=== PATIENT | male | born 1965 | race Caucasian/White ===

== ENCOUNTER → 2017-09-06 | Outpatient (CLI) | payer BC ==
--- NOTE | 2017-09-06 16:24 | RADIOLOGY REPORT (SQ) ---
EXAM DESCRIPTION: CT FACIAL AREA COMBO COMPLETED DATE/TIME: 09/06/2017 3:23 pm REASON FOR STUDY: ACUTE ALLERGIC RHINITIS/MASS OF SINUS R22.0 LOCALIZED SWELLING, MASS AND LUMP, HE AD COMPARISON: None. TECHNIQUE: THE PATIENT REFUSED IV CONTRAST. Noncontrast scanning through the paranasal sinuses using bone algorithm. Reconstructed MPR images r eviewed. All images stored on PACS. Images acquired for image guided surgery. All CT scanners at this facility use dose modulation, iterative reconstruction, and/or weight based d osing when appropriate to reduce radiation dose to as low as reasonably achievable (ALARA). [facility]: Dose Right [facility]: CareDose [facility]: Dose Right [facility]: Teradose 4D [facility]: [employer] RADIATION DOSE: 41.6 mGy. FINDINGS: NASAL PASSAGES: Clear. No polyps or masses. OSTEOMEATAL UNITS AND NASOFRONTAL DUCTS: Patent. Tiny bilateral agger nasi cells. No Vonnie cells. MAXILLARY SINUSES: Well-pneumatized and clear. Maxillary sinus outlets are patent. ETHMOID SINUSES: Well-pneumatized and clear. SPHENOID SINUSES: Well-pneumatized and clear. No sphenoethmoid air cells or pneumatized pterygoid rec ess. No pneumatized dorsal sella. FRONTAL SINUSES: Well-pneumatized and clear. MASTOID AIR CELLS: Clear. ORBITS: Normal and symmetrical. NASAL SEPTUM: Lower 3rd rightward nasal septal deviation. Mid 3rd leftward nasal septal spur. TEMPOROMANDIBULAR JOINTS: Normal. TURBINATES: No pneumatized turbinates. MUCOPERIOSTEAL THICKENING: No. MUCOCELE: No. OTHER: No other significant findings. IMPRESSION: NO EVIDENCE OF ACUTE SINUSITIS. TECHNICAL DOCUMENTATION: JOB ID: [id number] Quality ID # [id number]: Final reports with documentation of one or more dose reduction techniques (e.g., Au tomated exposure control, adjustment of the mA and/or kV according to patient size, use of iterative reconstruction technique) 2010 [employer]- All Rights Reserved
== END ==
LOC: RAD 14:34
PROVIDERS: ATTEND Otolaryngology
DX: R22.0 Localized swelling, mass and lump, head (principal)
CPT/HCPCS: 70488

== ENCOUNTER → 2018-04-12 | Outpatient (CLI) | payer BC ==
[2018-04-12 08:20] LABS: ABSOLUTE EOSINOPHILS # (AUTO) 0.1 10^3/uL (0.0-0.6); ABSOLUTE LYMPHOCYTES (AUTO) 2.5 10^3/uL (0.5-4.7); ABSOLUTE MONOCYTES (AUTO) 0.6 10^3/uL (0.1-1.4); ABSOLUTE NEUT (AUTO) 3.8 10^3/uL (1.7-8.2); BASOPHILS % (AUTO) 0.6 % (0-2); EOSINOPHILS % (AUTO) 1.2 % (0-6); HEMATOCRIT 45.8 % (37.9-51.0); HEMOGLOBIN 15.6 g/dL (13.5-17.0); LYMPHOCYTES % (AUTO) 35.6 % (13-45); MEAN CORPUSCULAR HEMOGLOBIN 31.9 pg (27.0-33.4); MEAN CORPUSCULAR VOLUME 94 fl (80-97); MONOCYTES % (AUTO) 8.1 % (3-13); PLATELET COUNT 334 10^3/uL (150-450); RED BLOOD COUNT 4.88 10^6/uL (4.35-5.55); SEGMENTED NEUTROPHILS % (AUTO) 54.5 % (42-78); TOTAL CELLS COUNTED % (AUTO) 100 %
[2018-04-12 08:43] LABS: ALANINE AMINOTRANSFERASE 20 U/L (21-72); ALBUMIN 4.9 g/dL (3.5-5.0); ALKALINE PHOSPHATASE 70 U/L (38-126); ANION GAP 9 (5-19); ASPARTATE AMINO TRANSFERASE 24 U/L (17-59); BILIRUBIN,DIRECT 0.3 mg/dL (0.0-0.4); BILIRUBIN,TOTAL 0.4 mg/dL (0.2-1.3); BLOOD UREA NITROGEN 16 mg/dL (7-20); CALCIUM 10.3 mg/dL (8.4-10.2); CARBON DIOXIDE 33 mmol/L (22-30); CHLORIDE 100 mmol/L (98-107); CHOLESTEROL 196.65 mg/dL (0-200); GLUCOSE 111 mg/dL (75-110); POTASSIUM 4.8 mmol/L (3.6-5.0); SODIUM 142.3 mmol/L (137-145); TOTAL PROTEIN 7.4 g/dL (6.3-8.2); TRIGLYCERIDES 53 mg/dL (<150)
[2018-04-12 08:58] LABS: DIRECT LDL 93 mg/dL (<100)
[2018-04-16 07:05] LABS: LYME DISEASE IGM AB <0.80 index (0.00-0.79)
== END ==
LOC: LAB 07:47
PROVIDERS: ATTEND Internal Medicine
DX: Z00.00 Encounter for general adult medical examination without abnormal findings (principal); E55.9 Vitamin D deficiency, unspecified
CPT/HCPCS: 36415; 80053; 80061; 82306; 84153; 84443; 85025; 86617; 86618

== ENCOUNTER → 2018-04-20 | Outpatient (CLI) | payer BC ==
--- NOTE | 2018-04-21 01:47 | RADIOLOGY REPORT (SQ) ---
EXAM DESCRIPTION: 2 views of the chest CLINICAL HISTORY: CHRONIC OBSTRUCTIVE PULMONARY DISEASE COMPARISON: 08/24/2014 FINDINGS: Frontal and lateral views of the chest. The cardiomediastinal silhouette has normal size and contour. No consolidation, pneumothorax, or pleural effusion. No displaced rib fractures identified. Hyperinflation. Upper abdominal soft tissues are unremarkable. IMPRESSION: 1. No acute pulmonary process identified. Findings suggest obstructive lung disease.
== END ==
LOC: RAD 18:55
PROVIDERS: ATTEND Internal Medicine
DX: J44.9 Chronic obstructive pulmonary disease, unspecified (principal); R05 Cough
CPT/HCPCS: 71046

== ENCOUNTER 2019-09-15 08:07 | Emergency (ER) | payer BC, OTHER ==
[2019-09-15 08:14] VITALS: BP 101/78
--- NOTE | 2019-09-15 08:24 | ER Document Report ---
HPI - HPI Time Seen by Provider: 09/15/19 08:18 Notes: Patient is a 54-year-old male with a history of chronic right knee pain with no other significant past medical history aside from tobacco abuse who presents complaining of acute on chronic right knee pain status post injury yesterday. Patient states that he was wrestling with his son when he may have twisted his knee causing pain. Patient states that the pain is primarily on the lateral side. His knee has been giving out on him which is not uncommon for him. He does have crutches that he has been using. He has not noticed any swelling or bruising. The pain does not radiate. Patient was told that he has meniscal tear as well as partial ACL tear in that knee, but has not been seen by orthopedics in over a year. Denies any headache, fever, head injury, neck pain, changes in vision/speech/mentation/hearing, URI, sore throat, chest pain, palpitations, syncope, cough, shortness of breath, wheeze, dyspnea, abdominal pain, nausea/vomiting/diarrhea, urinary retention, dysuria, hematuria, loss of control of bowel or bladder, numbness/tingling, saddle anesthesia, muscle paralysis/weakness, or rash. - ROS Systems Reviewed and Negative: Yes All other systems reviewed and negative Past Medical History - Social History Smoking Status: Current Every Day Smoker Family History: Reviewed & Not Pertinent - Past Medical History Cardiac Medical History: Denies: Hx Coronary Artery Disease, Hx Heart Attack, Hx Hypertension Pulmonary Medical History: Denies: Hx Asthma, Hx Bronchitis, Hx COPD, Hx Pneumonia Neurological Medical History: Denies: Hx Cerebrovascular Accident, Hx Seizures Musculoskeletal Medical History: Reports Hx Arthritis Past Surgical History: Denies: Hx Pacemaker - Immunizations Hx Diphtheria, Pertussis, Tetanus Vaccination: Yes Vertical Provider Document - CONSTITUTIONAL Agree With Documented VS: Yes Notes: PHYSICAL EXAMINATION: GENERAL: Well-appearing, well-nourished and in no acute distress. LUNGS: Breath sounds clear to auscultation bilaterally and equal. No wheezes rales or rhonchi. HEART: Regular rate and rhythm without murmurs, rubs, gallops. Musculoskeletal: Rt knee: No obvious swelling, ecchymosis, effusion, or deformity. FROM to passive/active. Strength 5+/5. N/V intact distal. + lateral joint line tenderness. Patellar grind negative. No calf tenderness. Difficult to adequately assess ligaments/meniscus with pt resistance. Extremities: No cyanosis, clubbing, or edema b/l. Peripheral pulses 2+. Capillary refill less than 3 seconds. Higinio neg b/l. NEUROLOGICAL: Normal speech, limping gait. Normal sensory, motor exams PSYCH: Normal mood, normal affect. SKIN: Warm, Dry, normal turgor, no rashes or lesions noted. - INFECTION CONTROL TRAVEL OUTSIDE OF THE [place] IN LAST 30 DAYS: No Course - Re-evaluation Re-evalutation: 09/15/19 Patient is an afebrile, well-hydrated, 54-year-old male who presents to the ED with acute on chronic right knee pain, probable internal involvement. Vitals are acceptable without any significant tachycardia, tachypnea, or hypoxia. PE is otherwise unremarkable for any neurovascular compromise, obvious tendon/ligament rupture, obvious fracture/dislocation, septic joint. X-ray was unremarkable for any acute pathology aside from joint effusion, most likely from acute injury-no evidence of infection. Ankle stirrup and crutches were provided today. Patient declined any Tylenol or ice. Patient is nontoxic-appearing. Patient is able to ambulate and weight-bear although he is limping. No other labs or imaging warranted at this time based on H&P. Conservative measures otherwise for symptoms. Recheck with your PCM in 3-5 days. Consider consult orthopedics. Return to the ED with any worsening/concerning symptoms otherwise as reviewed in discharge. Patient is in agreement. - Vital Signs Vital signs: Temp Pulse Resp BP Pulse Ox 97.6 F 68 18 101/78 97 09/15/19 08:13 09/15/19 08:13 09/15/19 08:13 09/15/19 08:13 09/15/19 08:13 Discharge - Discharge Clinical Impression: Right knee pain Qualifiers: Chronicity: acute Qualified Code(s): M25.561 - Pain in right knee Condition: Stable Disposition: HOME, SELF-CARE Additional Instructions: Rest, Ice, Compression, Elevation Tylenol/ibuprofen as needed Light stretches daily Strength exercises as able Moist heat and massage may help F/u with your PCP in 3-5 days for a recheck Consider consult(s) with Orthopedics/physical therapy for ongoing/worsening symptoms Return to the ED with any worsening symptoms and/or development of fever, headache, chest pain, palpitations, syncope, shortness of breath, trouble breathing, abdominal pain, n/v/d, muscle weakness/paralysis, numbness/tingling, swelling, redness, or other worsening symptoms that are concerning to you. Prescriptions: Meloxicam [Mobic 7.5 Mg Tablet] 7.5 mg PO BID PRN #20 tablet PRN Reason: Forms: Smoking Cessation Education Referrals: WANG BARROSO MD [ACTIVE STAFF] - Follow up as needed [facility] [Provider Group] - Follow up as needed
--- NOTE | 2019-09-15 09:28 | RADIOLOGY REPORT (SQ) ---
EXAM DESCRIPTION: KNEE RIGHT 4 VIEWS COMPLETED DATE/TIME: 09/15/2019 9:04 am REASON FOR STUDY: Rt knee pain, acute on chronic COMPARISON: 05/09/2013 NUMBER OF VIEWS: Four views. TECHNIQUE: AP, lateral, and both oblique radiographic images acquired of the right knee. LIMITATIONS: None. FINDINGS: MINERALIZATION: Normal. BONES: No acute fracture or dislocation. No worrisome bone lesions. JOINT: Large nonspecific knee joint effusion. Mild tricompartmental joint space narrowing and osteop hytosis SOFT TISSUES: No soft tissue swelling. No radio-opaque foreign body. OTHER: No other significant finding. IMPRESSION: No fracture or dislocation of the right knee. There is a large nonspecific knee joint e ffusion. Mild tricompartmental joint space narrowing and osteophytosis. TECHNICAL DOCUMENTATION: JOB ID: [id number] [email or web address]- All Rights Reserved Reading location - IP/workstation name: [email or web address]
== END 2019-09-15 09:30 | disposition home or self-care (01) ==
LOC: ER 08:07
DX: M25.561 Pain in right knee (principal); G89.29 Other chronic pain; X50.1XXA Overexertion from prolonged static or awkward postures, initial encounter; Y93.72 Activity, wrestling; F17.200 Nicotine dependence, unspecified, uncomplicated
CPT/HCPCS: 99283

== ENCOUNTER → 2020-02-19 | Outpatient (CLI) | payer BC ==
--- NOTE | 2020-02-19 12:02 | RADIOLOGY REPORT (SQ) ---
EXAM DESCRIPTION: L SPINE WHOLE COMPLETED DATE/TIME: 02/19/2020 11:47 am REASON FOR STUDY: BACK PAIN M51.36 OTHER INTERVERTEBRAL DISC DEGENERATION, LUMBAR REGION M54.6 JANETT N IN THORACIC SPINE R05 COUGH COMPARISON: Lumbar spine films 08/13/2016 Thoracic spine films same date NUMBER OF VIEWS: Five views including obliques. TECHNIQUE: AP, lateral, oblique, and sacral radiographic images acquired of the lumbar spine. LIMITATIONS: None. FINDINGS: MINERALIZATION: Normal. SEGMENTATION: Normal. No transitional anatomy. ALIGNMENT: Normal. VERTEBRAE: Maintained height. No fracture or worrisome bone lesion. DISCS: Mild disc space loss of height at L4-5 and L5-S1 POSTERIOR ELEMENTS: Mild bilateral facet arthropathy at L4-5 and L5-S1. No spondylolysis HARDWARE: None in the spine. PARASPINAL SOFT TISSUES: Normal. PELVIS: Mild sclerosis right SI joint OTHER: No other significant finding. IMPRESSION: Mild lower lumbar degenerative changes TECHNICAL DOCUMENTATION: JOB ID: [id number] 2010 [employer]- All Rights Reserved Reading location - IP/workstation name: [email or web address]
--- NOTE | 2020-02-19 12:02 | RADIOLOGY REPORT (SQ) ---
EXAM DESCRIPTION: T SPINE AP/LAT COMPLETED DATE/TIME: 02/19/2020 11:47 am REASON FOR STUDY: THORACIC BACK PAIN M51.36 OTHER INTERVERTEBRAL DISC DEGENERATION, LUMBAR REGION M 54.6 PAIN IN THORACIC SPINE R05 COUGH COMPARISON: Thoracic spine films 05/13/2012, 04/16/2014, 08/13/2016 NUMBER OF VIEWS: Two views. TECHNIQUE: AP and lateral radiographic images acquired of the thoracic spine. LIMITATIONS: None. FINDINGS: MINERALIZATION: Normal. ALIGNMENT: Minimal convex rightward thoracic curvature less than 10 from the top of T2 to the bottom of T8. VERTEBRAE: No fracture or bone lesion. Maintained height, normal segmentation. DISCS: No significant loss of height or significant narrowing. No large osteophytes. HARDWARE: None in the spine. MEDIASTINUM AND SOFT TISSUES: Normal heart size and aortic contour. No soft tissue abnormality. VISUALIZED LUNG JOE: Clear. OTHER: No other significant finding. IMPRESSION: NO SIGNIFICANT RADIOGRAPHIC FINDING IN THE THORACIC SPINE. TECHNICAL DOCUMENTATION: JOB ID: [id number] 2010 [employer]- All Rights Reserved Reading location - IP/workstation name: [email or web address]
--- NOTE | 2020-02-19 12:02 | RADIOLOGY REPORT (SQ) ---
EXAM DESCRIPTION: CHEST 2 VIEWS COMPLETED DATE/TIME: 02/19/2020 11:47 am REASON FOR STUDY: COUGH/BRONCHITIS COMPARISON: Chest films 2013, 2017 EXAM PARAMETERS: NUMBER OF VIEWS: two views TECHNIQUE: Digital Frontal and Lateral radiographic views of the chest acquired. RADIATION DOSE: NA LIMITATIONS: none FINDINGS: LUNGS AND PLEURA: No opacities, masses or pneumothorax. No pleural effusion. MEDIASTINUM AND HILAR STRUCTURES: No masses or contour abnormalities. HEART AND VASCULAR STRUCTURES: Heart normal size. No evidence for failure. BONES: No acute findings. HARDWARE: None in the chest. OTHER: No other significant finding. IMPRESSION: NO ACUTE RADIOGRAPHIC FINDING IN THE CHEST. TECHNICAL DOCUMENTATION: JOB ID: [id number] 2010 [employer]- All Rights Reserved Reading location - IP/workstation name: [email or web address]
--- NOTE | 2020-02-19 12:03 | RADIOLOGY REPORT (SQ) ---
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 FINDINGS: MINERALIZATION: Normal. HIPS: No acute fracture or dislocation. No worrisome bone lesions. PELVIS AND SACRUM: No acute fracture or dislocation. No worrisome bone lesions. PUBIS AND ISCHIUM: No acute fracture. Mild right SI joint sclerosis SOFT TISSUES: No findings. OTHER: No other significant finding. IMPRESSION: Mild right SI joint sclerosis. Otherwise unremarkable study COMMENT: Pelvic fractures are often occult on plain radiographs. If strong clinical suspicion for f racture, recommend CT or MR. TECHNICAL DOCUMENTATION: JOB ID: [id number] 2010 [employer]- All Rights Reserved Reading location - IP/workstation name: [email or web address]
== END ==
LOC: RAD 11:04
PROVIDERS: ATTEND Physician Assistant
DX: M51.36 Other intervertebral disc degeneration, lumbar region (principal); M43.8X4 Other specified deforming dorsopathies, thoracic region; J40 Bronchitis, not specified as acute or chronic; R05 Cough
CPT/HCPCS: 71046; 72070; 72110; 72170

== ENCOUNTER 2020-07-21 00:23 | Emergency (ER) | payer BC ==
[2020-07-21 00:33] VITALS: BP 118/83
[2020-07-21] MEDS ORDERED: OXYCODONE-ACETAMINOPHEN 5-325 MG TABLET PO ONE (00:53)
--- NOTE | 2020-07-21 00:56 | ER Document Report ---
ED Medical Screen (RME) - General Chief Complaint: Skin Sore(s) Stated Complaint: BUG BITES IN LEGS Time Seen by Provider: 07/21/20 00:27 Primary Care Provider: CHHAYA MCCRARY PA-C [Primary Care Provider] - Follow up as needed Information source: Patient Notes: Patient presents complaining of skin lesions to the bilateral lower extremities that started to develop 4 hours ago. Patient states that his legs have also started to have areas in which he has areas of swelling to the left lateral knee, anterior gomez bilaterally and posterior right ankle. Patient has worsening skin lesions that are not pruritic. Patient complains of increasing leg pain and has difficulty ambulating at this time. I have greeted and performed a rapid initial assessment of this patient. A comprehensive ED assessment and evaluation of the patient, analysis of test results and completion of the medical decision making process will be conducted by additional ED providers. TRAVEL OUTSIDE OF THE [place] IN LAST 30 DAYS: No - Related Data Allergies/Adverse Reactions: cyclobenzaprine HCl [From Flexeril] Allergy (Severe, Verified 07/21/20 00:45) Hives Home Medications: PAIN MEDS (CHRONIC) Past Medical History - Social History Frequency of alcohol use: None Drug Abuse: None - Past Medical History Cardiac Medical History: Denies: Hx Coronary Artery Disease, Hx Heart Attack, Hx Hypertension Pulmonary Medical History: Denies: Hx Asthma, Hx Bronchitis, Hx COPD, Hx Pneumonia Neurological Medical History: Denies: Hx Cerebrovascular Accident, Hx Seizures Musculoskeltal Medical History: Reports Hx Arthritis Past Surgical History: Denies: Hx Pacemaker - Immunizations Hx Diphtheria, Pertussis, Tetanus Vaccination: Yes Physical Exam - Vital signs Vitals: Temp Pulse Resp BP Pulse Ox 99.5 F 78 20 118/83 95 07/21/20 00:30 07/21/20 00:30 07/21/20 00:30 07/21/20 00:30 07/21/20 00:30 - General General appearance: Alert In distress: Mild Notes: Patient with petechial skin rash to bilateral lower extremities, some areas of the lesions overlying the knee are raised with some scabbed areas. Patient with swollen area to the anterior aspect of bilateral gomez and to the lateral aspect of the left knee and posterior aspect of right ankle. Course - Re-evaluation Re-evalutation: 07/21/20 00:[address] Mitchell regarding patient presentation, advises ordering coags and basic laboratory studies - Vital Signs Vital signs: Temp Pulse Resp BP Pulse Ox 99.5 F 78 20 118/83 95 07/21/20 00:30 07/21/20 00:30 07/21/20 00:30 07/21/20 00:30 07/21/20 00:30 Doctor's Discharge - Discharge Referrals: CHHAYA MCCRARY, FRANCISCA [Primary Care Provider] - Follow up as needed
== END 2020-07-21 06:18 | disposition left against medical advice (07) ==
LOC: ER 00:23
DX: L98.9 Disorder of the skin and subcutaneous tissue, unspecified (principal); W57.XXXA Bitten or stung by nonvenomous insect and other nonvenomous arthropods, initial encounter; Z88.8 Allergy status to other drugs, medicaments and biological substances
CPT/HCPCS: 99283

== ENCOUNTER 2020-07-21 11:41 | Emergency (ER) | payer BC ==
[2020-07-21] MEDS ORDERED: CLINDAMYCIN 600 MG/D5W RTU 600 MG/50 ML RTUPB IV ONE (13:13)
--- NOTE | 2020-07-21 13:16 | ER Document Report ---
ED Medical Screen (RME) - General Chief Complaint: Leg Swelling Stated Complaint: LEG SWELLING Time Seen by Provider: 07/21/20 13:05 Primary Care Provider: WANG BARROSO MD [Primary Care Provider] - Follow up as needed Mode of Arrival: Wheelchair Information source: Patient Notes: HPI; 55-year-old male with a history of chronic back pain presents to the emerge ncy room complaining of bilateral leg pain for the rash that started last evening after [place]. States he was here last night but left prior to being seen due to the weight. States today he got up and he can barely walk secondary to the pain. Has been taking his Percocet for his chronic back pain without relief. He denies any acute injury. Denies any recent insect bites that he is aware of. Denies fevers. PE: Alert and oriented x3. Moderate distress noted. Lungs: Clear to auscultation without rales, rhonchi, wheezes. Heart: Regular rate and rhythm without murmurs, rubs, gallops. Bilateral lower extremities with scattered lesions questionable insect bites. They are tender to palpation. They are warm to touch. No discharge or draining noted. Patient with severe right calf pain on palpation. No swelling noted. Positive bilateral pedal pulses. I have greeted and performed a rapid initial assessment of this patient. A comprehensive ED assessment and evaluation of the patient, analysis of test results and completion of the medical decision making process will be conducted by additional ED providers. I have specifically instructed the patient or family members with the patient to immediately return to any nursing staff should anything change in the patient's condition or with their chief complaint. TRAVEL OUTSIDE OF THE [place] IN LAST 30 DAYS: No - Related Data Allergies/Adverse Reactions: cyclobenzaprine HCl [From Flexeril] Allergy (Severe, Verified 07/21/20 00:45) Hives Past Medical History - Past Medical History Cardiac Medical History: Denies: Hx Coronary Artery Disease, Hx Heart Attack, Hx Hypertension Pulmonary Medical History: Denies: Hx Asthma, Hx Bronchitis, Hx COPD, Hx Pneumonia Neurological Medical History: Denies: Hx Cerebrovascular Accident, Hx Seizures Musculoskeltal Medical History: Reports Hx Arthritis Past Surgical History: Denies: Hx Pacemaker - Immunizations Hx Diphtheria, Pertussis, Tetanus Vaccination: Yes Physical Exam - Vital signs Vitals: Temp Pulse Resp BP Pulse Ox 98.7 F 72 18 120/73 97 07/21/20 11:45 07/21/20 11:45 07/21/20 11:45 07/21/20 11:45 07/21/20 11:45 Course - Vital Signs Vital signs: Temp Pulse Resp BP Pulse Ox 98.7 F 72 18 120/73 97 07/21/20 11:45 07/21/20 11:45 07/21/20 11:45 07/21/20 11:45 07/21/20 11:45 Doctor's Discharge - Discharge Referrals: WANG BARROSO MD [Primary Care Provider] - Follow up as needed
[2020-07-21 13:49] LABS: ABSOLUTE BASOPHILS # (AUTO) 0.1 10^3/uL (0.0-0.2); ABSOLUTE MONOCYTES (AUTO) 1.4 10^3/uL (0.1-1.4); ABSOLUTE NEUT (AUTO) 10.4 10^3/uL (1.7-8.2); BASOPHILS % (AUTO) 0.4 % (0-2); EOSINOPHILS % (AUTO) 0.3 % (0-6); HEMATOCRIT 37.3 % (37.9-51.0); HEMOGLOBIN 12.9 g/dL (13.5-17.0); LYMPHOCYTES % (AUTO) 14.2 % (13-45); MEAN CORPUSCULAR HEMOGLOBIN 31.6 pg (27.0-33.4); MEAN CORPUSCULAR HGB CONC 34.7 g/dL (32.0-36.0); MEAN CORPUSCULAR VOLUME 91 fl (80-97); MONOCYTES % (AUTO) 10.1 % (3-13); PLATELET COUNT 522 10^3/uL (150-450); RED BLOOD COUNT 4.09 10^6/uL (4.35-5.55); RED CELL DISTRIBUTION WIDTH 12.6 % (11.5-14.0); TOTAL CELLS COUNTED % (AUTO) 100 %; WHITE BLOOD COUNT 13.8 10^3/uL (4.0-10.5)
[2020-07-21 14:10] LABS: ALBUMIN 4.1 g/dL (3.5-5.0); ALKALINE PHOSPHATASE 268 U/L (38-126); ANION GAP 11 (5-19); ASPARTATE AMINO TRANSFERASE 33 U/L (17-59); BILIRUBIN,DIRECT 0.1 mg/dL (0.0-0.4); BILIRUBIN,TOTAL 0.9 mg/dL (0.2-1.3); BLOOD UREA NITROGEN 12 mg/dL (7-20); CALCIUM 9.5 mg/dL (8.4-10.2); CARBON DIOXIDE 29 mmol/L (22-30); CHLORIDE 100 mmol/L (98-107); GLUCOSE 102 mg/dL (75-110); POTASSIUM 4.4 mmol/L (3.6-5.0); TOTAL PROTEIN 7.6 g/dL (6.3-8.2)
--- NOTE | 2020-07-21 16:11 | RADIOLOGY REPORT (SQ) ---
EXAM DESCRIPTION: CHEST SINGLE VIEW IMAGES COMPLETED DATE/TIME: 07/21/2020 3:59 pm REASON FOR STUDY: sob COMPARISON: 02/19/2020 EXAM PARAMETERS: NUMBER OF VIEWS: One view. TECHNIQUE: Single frontal radiographic view of the chest acquired. RADIATION DOSE: NA LIMITATIONS: None. FINDINGS: LUNGS AND PLEURA: No opacities, masses or pneumothorax. No pleural effusion. MEDIASTINUM AND HILAR STRUCTURES: No masses. Contour normal. HEART AND VASCULAR STRUCTURES: Heart normal in size. Normal vasculature. BONES: No acute findings. HARDWARE: None in the chest. OTHER: No other significant finding. IMPRESSION: NO ACUTE RADIOGRAPHIC FINDING IN THE CHEST. TECHNICAL DOCUMENTATION: JOB ID: [id number] 2010 [employer]- All Rights Reserved Reading location - IP/workstation name: [email or web address]
[2020-07-21 16:20] LABS: PROTHROMBIN TIME 14.4 SEC (11.4-15.4)
[2020-07-21 16:21] LABS: PARTIAL THROMBOPLASTIN TIME 35.6 SEC (23.5-35.8)
[2020-07-21] MEDS ORDERED: MORPHINE SULFATE 10 MG/ML INJ IV ONE (17:00)
[2020-07-21] MEDS ORDERED: DIAZEPAM 2 MG TABLET PO ONE (17:09)
--- NOTE | 2020-07-21 19:15 | RADIOLOGY REPORT (SQ) ---
EXAM DESCRIPTION: VENOUS BILATERAL LOWER IMAGES COMPLETED DATE/TIME: 07/21/2020 5:13 pm REASON FOR STUDY: Bilateral leg swelling COMPARISON: None. TECHNIQUE: Dynamic and static ventura scale and color images acquired of both lower extremity venous sy stems. Selected spectral images acquired with additional compression and augmentation maneuvers. Imag es stored on PACS. LIMITATIONS: None. FINDINGS: RIGHT LEG There is nonocclusive thrombus in the right popliteal vein. No extension proximally. The right comm on femoral, greater saphenous, superficial femoral, and femoral are patent with normal compressibilit y. The right posterior tibial, greater saphenous and superficial saphenous veins below the knee are patent with normal compressibility. LEFT LEG There is extensive acute hypoechoic thrombus involving the left popliteal vein, gastric vein, and per lambert vein below the knee. The left common femoral vein, greater saphenous vein, femoral vein, and s uperficial femoral vein are patent. IMPRESSION: 1. Acute occlusive thrombus in the left popliteal vein, gastroc vein and peroneal vein below the knee . 2. Focal acute nonocclusive thrombus in the right popliteal vein. COMMENT: Findings were called by the sonographic technologist to the attending DrTaylor at 1805 hours. TECHNICAL DOCUMENTATION: JOB ID: [id number] 2010 [employer]- All Rights Reserved Reading location - IP/workstation name: [email or web address]
[2020-07-21] MEDS ORDERED: APIXABAN 5 MG TABLET PO ONE (19:54)
--- NOTE | 2020-07-21 20:00 | ER Document Report ---
ED General - General Chief Complaint: Leg Swelling Stated Complaint: LEG SWELLING Time Seen by Provider: 07/21/20 13:05 Primary Care Provider: WANG BARROSO MD [Primary Care Provider] - Follow up as needed Mode of Arrival: Wheelchair Information source: Patient, Relative Notes: Patient is a 55-year-old male presenting to the emergency department chief complaint of bilateral lower extremity swelling pain and rash. Patient states this began yesterday however on further discussion the pain actually started several days ago yesterday he noticed the swelling and this morning he noticed the rash. The rash began around his feet and ankles and has progressed towards his thighs. Patient denies travel history trauma history sick contacts no change in medications. TRAVEL OUTSIDE OF THE [place] IN LAST 30 DAYS: No - HPI Onset: Yesterday Onset/Duration: Gradual, Worse Quality of pain: Throbbing Severity: Moderate Pain Level: 3 Associated symptoms: None Exacerbated by: Standing, Movement, Walking Relieved by: Denies Similar symptoms previously: No Recently seen / treated by doctor: No - Related Data Allergies/Adverse Reactions: cyclobenzaprine HCl [From Flexeril] Allergy (Severe, Verified 07/21/20 00:45) Hives Past Medical History - General Information source: Patient - Social History Smoking Status: Current Every Day Smoker Cigarette use (# per day): Yes Chew tobacco use (# tins/day): No Smoking Education Provided: Yes Frequency of alcohol use: Occasional Drug Abuse: None Lives with: Spouse/Significant other Family History: Reviewed & Not Pertinent Patient has suicidal ideation: No Patient has homicidal ideation: No - Past Medical History Cardiac Medical History: Denies: Hx Coronary Artery Disease, Hx Heart Attack, Hx Hypertension Pulmonary Medical History: Denies: Hx Asthma, Hx Bronchitis, Hx COPD, Hx Pneumonia Neurological Medical History: Denies: Hx Cerebrovascular Accident, Hx Seizures Musculoskeletal Medical History: Reports Hx Arthritis Past Surgical History: Denies: Hx Pacemaker - Immunizations Hx Diphtheria, Pertussis, Tetanus Vaccination: Yes Review of Systems - Review of Systems Constitutional: No symptoms reported EENT: No symptoms reported Cardiovascular: No symptoms reported Respiratory: No symptoms reported Gastrointestinal: No symptoms reported Genitourinary: No symptoms reported Male Genitourinary: No symptoms reported Musculoskeletal: See HPI Skin: See HPI Hematologic/Lymphatic: No symptoms reported Neurological/Psychological: No symptoms reported Physical Exam - Vital signs Vitals: Temp 98.7 F 07/21/20 11:41 - Notes Notes: PHYSICAL EXAMINATION: GENERAL: Well-appearing, well-nourished and in no acute distress. HEAD: Atraumatic, normocephalic. EYES: Pupils equal round and reactive to light, extraocular movements intact, sclera anicteric, conjunctiva are normal. ENT: nares patent, oropharynx clear without exudates. Moist mucous membranes. NECK: Normal range of motion, supple without lymphadenopathy, no appreciable JVD LUNGS: Lungs clear to auscultation bilaterally and equal. No wheezes rales or rhonchi. HEART: Regular rate and rhythm without murmurs ABDOMEN: Soft, nontender, normal bowel sounds. No guarding, no rebound. No masses appreciated. EXTREMITIES: Upper extremities full range of motion 2+ pulses bilaterally. Lower extremities patient does have petechiae to the ankles and calves and lower thigh. There is swelling bilaterally and painful calves bilaterally to palpation pulses are present at the dorsalis pedis NEUROLOGICAL: No focal neurological deficits. Moves all extremities spontaneously and on command. SKIN: Warm, Dry, and intact. Normal turgor, no rashes or lesions noted. Course - Re-evaluation Re-evalutation: 07/21/20 19:57 I discussed the laboratory and radiologic results with the patient he unde rstands that he has an occlusive left-sided popliteal gastroc and peroneal vein as well as a nonocclusive right-sided popliteal vein. Patient will be given initial dose of Eliquis in the emergency department and a prescription for same as well as a prescription for a few Valium to help with muscle cramps. Patient is recommended to follow-up with his primary care provider over the next couple of days for further management. Patient is stable at time of discharge. - Vital Signs Vital signs: Temp Pulse Resp BP Pulse Ox 98.7 F 72 19 111/65 92 07/21/20 11:45 07/21/20 11:45 07/21/20 18:57 07/21/20 18:57 07/21/20 18:57 - Laboratory Result Diagrams: 07/21/20 13:25 07/21/20 13:25 Laboratory results interpreted by me: 07/21/20 07/21/20 13:25 13:25 WBC 13.8 H RBC 4.09 L Hgb 12.9 L Hct 37.3 L Plt Count 522 H Absolute Neuts (auto) 10.4 H Alkaline Phosphatase 268 H - Diagnostic Test Radiology reviewed: Reports reviewed Discharge - Discharge Clinical Impression: DVT (deep venous thrombosis) Qualifiers: DVT location: lower extremity Affected thrombotic vein of extremity: calf muscle vein Chronicity: acute Laterality: bilateral Qualified Code(s): I82.463 - Acute embolism and thrombosis of calf muscular vein, bilateral Clinical Impression: (Ruled Out): Dvt femoral (deep venous thrombosis) Condition: Stable Disposition: HOME, SELF-CARE Additional Instructions: DVT Outpatient Treatment You have deep venous thrombosis (DVT) in your leg. DVT or phlebitis is blood clots within the large deep veins. This causes redness, warmth, and tenderness of the involved area. This problem is more likely to affect people who smoke, take estrogen, have had recent surgery, have been immobile, have had previous DVT, or who have serious underlying health conditions. Keep your legs elevated. A heating pad, 20 minutes every two hours, can help with leg pain. For now, keep walking to a minimum. Don't do any physical work, lifting, or exercise. If the doctor has recommended medication for you, it's important that you take it. You will be started on a blood-thinning medication. Follow-up is important. Your medication needs to be monitored. Call or return at once if you cough blood or vomit blood, pass black or bloody stool, or have any other unusual bleeding. DVT can cause serious complications. The clots can damage the valves in the veins, leading to chronic pain and swelling. If a clot breaks loose and floats upstream, it can stick in the lungs. A clot in the lungs, called pulmonary embolism, can be life-threatening. Call the doctor or return if you develop i ncreasing leg pain and swelling, leg discoloration, fever, chest pain, or shortness of breath. Prescriptions: Diazepam [Valium 2 mg Tablet] 2 mg PO Q6HP PRN #15 tablet PRN Reason: Apixaban [Eliquis 5 mg Tablet] 5 mg PO BID #30 tablet Forms: Return to Work Referrals: WANG BARROSO MD [Primary Care Provider] - Follow up as needed
[2020-07-21 20:31] VITALS: BP 110/71
== END 2020-07-21 20:32 | disposition home or self-care (01) ==
LOC: ER 11:41
DX: I82.463 Acute embolism and thrombosis of calf muscular vein, bilateral (principal); M79.89 Other specified soft tissue disorders; R21 Rash and other nonspecific skin eruption; Z88.8 Allergy status to other drugs, medicaments and biological substances; F17.210 Nicotine dependence, cigarettes, uncomplicated
CPT/HCPCS: 99285; 96374; 36415; 87040; 83605; 85025; 85610; 85730; 80053; 86757 ×2; 86618 ×2; 86617 ×2; 93970; 71045; J3490

== ENCOUNTER 2020-07-24 09:46 | Inpatient (IN) | payer BC ==
[2020-07-24] MEDS ORDERED: HYDROMORPHONE HCL INJ/PF 2 MG/ML AMPULE IV ONE (11:06)
[2020-07-24] MEDS ORDERED: ONDANSETRON HCL INJ/PF 4 MG/2 ML SDV IV ONE (11:06)
--- NOTE | 2020-07-24 11:18 | ER Document Report ---
ED General - General Chief Complaint: Leg Pain Stated Complaint: LEG PAIN Time Seen by Provider: 07/24/20 10:39 Primary Care Provider: WANG BARROSO MD [Primary Care Provider] - Follow up as needed TRAVEL OUTSIDE OF THE [place] IN LAST 30 DAYS: No - HPI Notes: Patient is a 55-year-old male who presents to the emergency department for evaluation. He was actually seen here on July 21. He was diagnosed with bilateral DVTs, and acute occlusive thrombus in the left popliteal vein gastrocnemius vein, and peroneal vein below the knee. He had a focal acute nonocclusive thrombus in the right popliteal vein. He was sent home on Eliquis, Valium, Percocet. He states that since then his swelling is worsened. The rash on his legs is worsened. His pain is worsened. He can barely move without pain. He is swelling in his hands. He has had chills. He is developed a cou gh. He has pain in his left upper back with deep breaths. He describes some shortness of breath and weakness. - Related Data Allergies/Adverse Reactions: cyclobenzaprine HCl [From Flexeril] Allergy (Severe, Verified 07/24/20 09:54) Hives morphine Allergy (Intermediate, Verified 07/24/20 09:54) Burning rash Home Medications: eliquis 5mg BID, Pecocet 10 TIDP, Valium 2mg PRN Past Medical History - General Information source: Patient - Social History Smoking Status: Former Smoker Chew tobacco use (# tins/day): No Frequency of alcohol use: None Drug Abuse: None Family History: Malignancy - Throat cancer in brother, colon cancer in mother. No DVT/PE family history Patient has homicidal ideation: No - Past Medical History Cardiac Medical History: Reports: Hx DVT Denies: Hx Coronary Artery Disease, Hx Heart Attack, Hx Hypertension Pulmonary Medical History: Denies: Hx Asthma, Hx Bronchitis, Hx COPD, Hx Pneumonia Neurological Medical History: Denies: Hx Cerebrovascular Accident, Hx Seizures Musculoskeletal Medical History: Reports Hx Arthritis Past Surgical History: Denies: Hx Pacemaker - Immunizations Hx Diphtheria, Pertussis, Tetanus Vaccination: Yes Review of Systems - Review of Systems Constitutional: See HPI EENT: No symptoms reported Cardiovascular: No symptoms reported Respiratory: See HPI Gastrointestinal: See HPI Genitourinary: No symptoms reported Musculoskeletal: See HPI Skin: See HPI Hematologic/Lymphatic: See HPI Neurological/Psychological: No symptoms reported Physical Exam - Vital signs Vitals: Temp Pulse Resp BP Pulse Ox 98.7 F 81 20 122/71 94 07/24/20 09:51 07/24/20 09:51 07/24/20 09:51 07/24/20 09:51 07/24/20 09:51 - Notes Notes: This is a 55-year-old male who appears his stated age, in a moderate amount of distress. Head is normocephalic and appears atraumatic, pupils are equal round, reactive to light. Oral mucosa is moist. Uvula is midline. Pharynx is without erythema or exudate. Neck is supple without meningismus. Heart is regular rate and rhythm, lungs are clear to auscultation bilaterally. Patient abdomen is soft, nontender, normoactive bowel sounds. Examination of the spine yields no midline tenderness or step-off. He has paraspinal musculature tenderness noted from approximately T2-T4 bilaterally, right greater than left. Extremities without cyanosis or clubbing. Patient has pallor and edema to bilateral lower extremities, left greater than right. He has extensive petechia noted. He has an ulcerated petechial lesion noted on the dorsum of the right foot. Dorsalis pedis and posterior tibial pulses are palpable bilaterally. Capillary refill is brisk, sensation is intact. Patient also has swelling to the dorsum of the right hand, approximately 3 x 4 cm, with associated calor. No other lesions noted to the palms or digits. Patient is awake and alert, neurological exam is nonfocal. Course - Re-evaluation Re-evalutation: 07/24/20 11:20 Patient presents to the emergency department for evaluation. This is a 55-year-old male with known bilateral DVTs, who presents with worsening petechial rash, pain, chills, cough. I am concerned about the possibility of pulmonary embolus in this patient. I also do have some concern over COVID-19 infection, given that he has no significant risk factors for coagulability to our knowledge at this time. He is placed on a telemetry monitor and laboratory investigations were obtained. CT angiogram of the chest is ordered. I did communicate to nursing staff that I did have concerns for COVID-19, the patient was placed on droplet precautions. Otherwise, patient is given symptomatic medication for his pain. We will continue to monitor closely. 07/24/20 15:08 Patient was given Dilaudid, fentanyl, really had minimal relief in regards to his pain. He states he has better luck with Percocet, this is ordered. I reviewed his scan, unfortunately it was suboptimal in regards to evaluation for pulmonary embolus. I do have a high suspicion, so we will order heparin in this patient who already has known extensive DVT. There is also marked adenopathy noted. When I talked to this patient in regards to this issue, he mentioned a small lump on his left side. He states is been there for a few weeks. He saw his primary care provider, who believed it likely to be a lipoma, as the patient has a history of multiple lipomas in the past. On examination this does feel a bit firmer than a lipoma at this point, it is not matted down, but of course further imaging would be appropriate for characterizing this lesion further. I explained to the patient there were multiple possible etiologies for his symptom, but I do believe at this point, particularly given his issues, that admission is appropriate for further evaluation. I will contact medicine. 07/24/20 15:47 Dr. Rios will come to the department and evaluate the patient. 07/24/20 17:13 Dr. Rios came and evaluated the patient. He agrees with admission to telemetry. - Vital Signs Vital signs: Temp Pulse Resp BP Pulse Ox 98.7 F 81 20 102/68 96 07/24/20 09:51 07/24/20 09:51 07/24/20 17:01 07/24/20 17:01 07/24/20 17:01 - Laboratory Result Diagrams: 07/24/20 11:35 07/24/20 11:35 Laboratory results interpreted by me: 07/24/20 07/24/20 07/24/20 11:35 11:35 11:35 WBC 15.1 H RBC 3.74 L Hgb 11.6 L Hct 33.8 L Plt Count 482 H Lymph % (Auto) 7.6 L Absolute Neuts (auto) 12.5 H Seg Neutrophils % 82.6 H PT 16.2 H APTT 36.3 H Sodium 135.9 L Glucose 118 H Alkaline Phosphatase 217 H Albumin 3.4 L - Diagnostic Test Radiology reviewed: Reports reviewed Radiology results interpreted by me: 07/24/20 15:10 Chest/Abdomen CTA 07/24/20 11:06 IMPRESSION: 1. Due to poor contrast bolus, pulmonary arteries are poorly assessed. No central clot detected but embolus in the peripheral branches is not excluded. 2. Mediastinal and hilar adenopathy. This was not seen in 2014. Nonspecific. Consider the possibility of neoplasm to include lymphoma as well as sarcoid. - EKG Interpretation by Me Additional EKG results interpreted by me: 07/24/20 15:10 Sinus mechanism with rate of 71 bpm. Normal axis and intervals. T wave inversions in anterior and inferior leads concerning for ischemia. There are no old studies available for comparison. Discharge - Discharge Clinical Impression: Mediastinal lymphadenopathy, Upper back pain, Person under investigation for COVID-19, Rule out pulmonary embolus DVT (deep venous thrombosis) Qualifiers: DVT location: lower extremity Chronicity: acute Laterality: bilateral Condition: Stable Disposition: ADMITTED INPATIENT Admitting Provider: Gabriel (Hospitalist) Unit Admitted: Telemetry Referrals: WANG BARROSO MD [Primary Care Provider] - Follow up as needed
[2020-07-24] MEDS ORDERED: METHYLPREDNISOLONE INJ 125 MG/2 ML SDV IV ONE (11:53)
[2020-07-24] MEDS ORDERED: DIPHENHYDRAMINE HCL 50 MG/ML VIAL IV ONE (11:53)
[2020-07-24 12:03] LABS: ABSOLUTE BASOPHILS # (AUTO) 0.1 10^3/uL (0.0-0.2); ABSOLUTE LYMPHOCYTES (AUTO) 1.2 10^3/uL (0.5-4.7); ABSOLUTE MONOCYTES (AUTO) 1.4 10^3/uL (0.1-1.4); ABSOLUTE NEUT (AUTO) 12.5 10^3/uL (1.7-8.2); BASOPHILS % (AUTO) 0.5 % (0-2); EOSINOPHILS % (AUTO) 0.1 % (0-6); HEMATOCRIT 33.8 % (37.9-51.0); HEMOGLOBIN 11.6 g/dL (13.5-17.0); LYMPHOCYTES % (AUTO) 7.6 % (13-45); MEAN CORPUSCULAR HGB CONC 34.3 g/dL (32.0-36.0); MEAN CORPUSCULAR VOLUME 90 fl (80-97); MONOCYTES % (AUTO) 9.2 % (3-13); PLATELET COUNT 482 10^3/uL (150-450); RED BLOOD COUNT 3.74 10^6/uL (4.35-5.55); RED CELL DISTRIBUTION WIDTH 12.4 % (11.5-14.0); SEGMENTED NEUTROPHILS % (AUTO) 82.6 % (42-78); TOTAL CELLS COUNTED % (AUTO) 100 %; WHITE BLOOD COUNT 15.1 10^3/uL (4.0-10.5)
[2020-07-24 12:08] LABS: INTERNATIONAL RATION (INR) 1.28; PROTHROMBIN TIME 16.2 SEC (11.4-15.4)
[2020-07-24 12:09] LABS: PARTIAL THROMBOPLASTIN TIME 36.3 SEC (23.5-35.8)
[2020-07-24 12:28] LABS: ALBUMIN 3.4 g/dL (3.5-5.0); ALKALINE PHOSPHATASE 217 U/L (38-126); ANION GAP 11 (5-19); ASPARTATE AMINO TRANSFERASE 23 U/L (17-59); BILIRUBIN,DIRECT 0.3 mg/dL (0.0-0.4); BILIRUBIN,TOTAL 0.9 mg/dL (0.2-1.3); BLOOD UREA NITROGEN 15 mg/dL (7-20); CALCIUM 9.1 mg/dL (8.4-10.2); CARBON DIOXIDE 26 mmol/L (22-30); CHLORIDE 99 mmol/L (98-107); GLUCOSE 118 mg/dL (75-110); POTASSIUM 4.2 mmol/L (3.6-5.0); TOTAL PROTEIN 6.8 g/dL (6.3-8.2)
[2020-07-24] MEDS ORDERED: FENTANYL CITRATE INJ/PF 100 MCG/2 ML AMPUL IV ONE (13:28)
--- NOTE | 2020-07-24 14:39 | RADIOLOGY REPORT (SQ) ---
EXAM DESCRIPTION: CTA CHEST IMAGES COMPLETED DATE/TIME: 07/24/2020 2:25 pm REASON FOR STUDY: DVT, upper back pain, eval for PE COMPARISON: 2013. TECHNIQUE: CT scan of the chest performed using helical scanning technique with dynamic intravenous contrast injection. Images reviewed with lung, soft tissue and bone windows. Reconstructed coronal and sagittal MPR images reviewed. Additional 3 dimensional post-processing performed to develop Maximal Intensity Projection images ([place] P). All images stored on PACS. All CT scanners at this facility use dose modulation, iterative reconstruction, and/or weight based d osing when appropriate to reduce radiation dose to as low as reasonably achievable (ALARA). [facility]: Dose Right [facility]: CareDose [facility]: Dose Right [facility]: Teradose 4D [facility]: [employer] CONTRAST TYPE AND DOSE: contrast/concentration: Isovue 350.00 mmol/ml; Total Contrast Delivered: 52. 0 ml; Total Saline Delivered: 75.0 ml Sub optimal opacification of the pulmonary arteries. Good opacification of the aorta. RENAL FUNCTION: GFR > 60. RADIATION DOSE: CT Rad equipment meets quality standard of care and radiation dose reduction techniq ues were employed. CTDIvol: 3.3 - 14.3 mGy. DLP: 517 mGy-cm. . LIMITATIONS: Limited contrast bolus, poor assessment of the pulmonary arteries. FINDINGS: LUNGS AND PLEURA: No masses, infiltrates, or pneumothorax. No pleural effusions or pleura l calcifications. AORTA AND GREAT VESSELS: Normal. Patent great vessel origins. HEART: No pericardial effusion. No significant coronary artery calcifications. PULMONARY ARTERIES: Suboptimal opacification of the pulmonary arteries. As result, clot beyond the m ain pulmonary arteries cannot be excluded. HILAR AND MEDIASTINAL STRUCTURES: Adenopathy is noted. Numerous mediastinal and hilar nodes, largely confluent. Largest nodes measure up to just over 1 cm in short axis. HARDWARE: None in the chest. UPPER ABDOMEN: No significant findings. Limited exam. THYROID AND OTHER SOFT TISSUES: No masses. No adenopathy. BONES: No acute or significant finding. 3D MIPS: Confirm above findings. OTHER: No other significant finding. IMPRESSION: 1. Due to poor contrast bolus, pulmonary arteries are poorly assessed. No central clot detected but embolus in the peripheral branches is not excluded. 2. Mediastinal and hilar adenopathy. This was not seen in 2014. Nonspecific. Consider the possibil ity of neoplasm to include lymphoma as well as sarcoid. COMMENT: Quality ID # [id number]: Final reports with documentation of one or more dose reduction techniques (e.g., Automated exposure control, adjustment of the mA and/or kV according to patient size, use of iterative reconstruction technique) TECHNICAL DOCUMENTATION: JOB ID: [id number] 2010 [employer]- All Rights Reserved Reading location - IP/workstation name: [email or web address]
[2020-07-24] MEDS ORDERED: HEPARIN SODIUM,PORCINE/D5W 25,000 UNIT/250 ML RTUINJ IV PRN (15:07)
[2020-07-24] MEDS ORDERED: HEPARIN SOD (PORCINE) 1,000 UNIT/ML 10 ML VIAL IV ONE (15:07)
[2020-07-24] MEDS ORDERED: OXYCODONE-ACETAMINOPHEN 5-325 MG TABLET PO ONE ×2 (15:07→21:40)
[2020-07-24] MEDS ORDERED: RINGERS SOLUTION,LACTATED 1,000 ML IV ONE (17:47)
[2020-07-24] MEDS ORDERED: MAGNESIUM HYDROXIDE SUSP 30 ML UDCUP PO PRN (17:55)
[2020-07-24] MEDS ORDERED: RINGERS SOLUTION,LACTATED 1,000 ML IV PRN (17:55)
[2020-07-24] MEDS ORDERED: ACETAMINOPHEN 325 MG TABLET PO PRN (17:55)
[2020-07-24] MEDS ORDERED: ALBUTEROL SULFATE HFA (90 MCG/PUFF) 8 GM MDI IH PRN ×2 (17:55→19:30)
[2020-07-24] MEDS ORDERED: ONDANSETRON HCL INJ/PF 4 MG/2 ML SDV IV PRN (17:55)
--- NOTE | 2020-07-24 17:55 | PDOC H&P ---
History of Present Illness Admission Date/PCP: WANG BARROSO MD Patient complains of: Back pain, swelling in the feet and ankles, rash and diaphoresis History of Present Illness: TRINITY MARION JR is a 55 year old male Past Medical History Cardiac Medical History: Reports: DVT Denies: Coronary Artery Disease, Myocardial Infarction, Hypertension Pulmonary Medical History: Denies: Asthma, Bronchitis, Chronic Obstructive Pulmonary Disease (COPD), Pneumonia Neurological Medical History: Denies: Seizures Musculoskeltal Medical History: Reports: Arthritis Hematology: Denies: Anemia Past Surgical History Past Surgical History: Reports: Other - Removal of lesion on the upper lip. Denies: Pacemaker Social History Information Source: Patient, [facility] Records - From the patient and his spouse Lives with: Spouse/Significant other Smoking Status: Former Smoker - Stopped 1 week ago. Was smoking 1 to 2 packs of cigarettes daily. Electronic Cigarette use?: No Frequency of Alcohol Use: None Hx Recreational Drug Use: No Hx Prescription Drug Abuse: No - Advance Directive Resuscitation Status: Full Code Surrogate healthcare decision maker:: The patient's is the dedicated decision maker. Family History Family History: Malignancy - Throat cancer in brother, colon cancer in mother. No DVT/PE family history Parental Family History Reviewed: Yes Children Family History Reviewed: Yes Sibling(s) Family History Reviewed.: Yes Medication/Allergy Home Medications: Apixaban [Eliquis 5 mg Tablet] 5 mg PO BID #30 tablet 07/21/20 Celecoxib [Celebrex 200 mg Capsule] 200 mg PO DAILY 07/21/20 Diazepam [Valium 2 mg Tablet] 2 mg PO Q6HP PRN #15 tablet 07/21/20 Oxycodone HCl/Acetaminophen [Oxycodone-Acetaminophen 10-325] 1 each PO Q8HP PRN 07/21/20 Tizanidine HCl [Zanaflex 4 Mg Tablet] 4 mg PO TIDP PRN 07/21/20 Allergies/Adverse Reactions: cyclobenzaprine HCl [From Flexeril] Allergy (Severe, Verified 07/24/20 09:54) Hives morphine Allergy (Intermediate, Verified 07/24/20 09:54) Burning rash Review of Systems All systems: reviewed and no additional remarkable complaints except as stated Constitutional: PRESENT: other - Diaphoresis Cardiovascular: PRESENT: edema Gastrointestinal: PRESENT: abdominal pain, heartburn Musculoskeletal: PRESENT: back pain Integumentary: PRESENT: diaphoresis, other - Multiple lipomas and a tender nodule just under the skin left costal margin Physical Exam Vital Signs: Temp Pulse Resp BP Pulse Ox 98.7 F 81 20 102/68 96 07/24/20 09:51 07/24/20 09:51 07/24/20 17:01 07/24/20 17:01 07/24/20 17:01 Intake & Output 07/23/20 07/24/20 07/25/20 06:59 06:59 06:59 Weight 65.2 kg General appearance: PRESENT: cooperative, well-developed, well-nourished, other - Moderate distress Head exam: PRESENT: atraumatic, normocephalic Eye exam: PRESENT: conjunctiva pink, EOMI. ABSENT: nystagmus, scleral icterus Mouth exam: PRESENT: dry mucosa, tongue midline Teeth exam: ABSENT: poor dentation Neck exam: PRESENT: full ROM. ABSENT: carotid bruit, JVD, lymphadenopathy, tracheostomy Respiratory exam: PRESENT: clear to auscultation josh, symmetrical, unlabored. ABSENT: accessory muscle use, prolonged expiratory phas, rales, rhonchi, tachypnea, wheezes Cardiovascular exam: PRESENT: RRR, +S1, +S2, systolic murmur - 2/6. ABSENT: bradycardia, diastolic murmur, irregular rhythm, tachycardia GI/Abdominal exam: PRESENT: hypoactive bowel sounds, soft, tenderness - Nodule left side just under the last rib. Diffuse tenderness across lower abdomen., other - Scaphoid abdomen. ABSENT: distended, guarding Rectal exam: PRESENT: deferred Gentrourinary exam: ABSENT: indwelling catheter Extremities exam: PRESENT: calf tenderness, pedal edema - Ankle edema bilaterally. Patient's reports that it is worse over the last 2 days. Musculoskeletal exam: PRESENT: ambulatory, full ROM. ABSENT: deformity, di slocation Neurological exam: PRESENT: alert, awake, oriented to person, oriented to place, oriented to time, oriented to situation, CN II-XII grossly intact. ABSENT: altered, motor sensory deficit Psychiatric exam: PRESENT: flat affect. ABSENT: agitated, anxious Focused psych exam: ABSENT: delusional, paranoid, restlessness Skin exam: PRESENT: dry, petechiae - Multiple petechia on the dorsum of each foot with some on the hands. Lesions are raised. ABSENT: vesicles Results Laboratory Results: 07/24/20 11:35 07/24/20 11:35 07/24/20 07/24/20 11:35 11:35 WBC 15.1 H RBC 3.74 L Hgb 11.6 L Hct 33.8 L MCV 90 MCH 31.0 MCHC 34.3 RDW 12.4 Plt Count 482 H Seg Neutrophils % 82.6 H Sodium 135.9 L Potassium 4.2 Chloride 99 Carbon Dioxide 26 Anion Gap 11 BUN 15 Creatinine 0.85 Est GFR ( Amer) > 60 Glucose 118 H Calcium 9.1 Total Bilirubin 0.9 AST 23 Alkaline Phosphatase 217 H Total Protein 6.8 Albumin 3.4 L 07/24/20 11:35 Troponin I < 0.012 Impressions: Chest/Abdomen CTA 07/24/20 11:06 IMPRESSION: 1. Due to poor contrast bolus, pulmonary arteries are poorly assessed. No antonieta tral clot detected but embolus in the peripheral branches is not excluded. 2. Mediastinal and hilar adenopathy. This was not seen in 2013. Nonspecific. Consider the possibility of neoplasm to include lymphoma as well as sarcoid. Assessment and Plan - Diagnosis (1) DVT (deep venous thrombosis) Qualifiers: DVT location: lower extremity Affected thrombotic vein of extremity: other lower extremity vein Chronicity: acute Laterality: bilateral Qualified Code(s): I82.493 - Acute embolism and thrombosis of other specified deep vein of lower extremity, bilateral Is this a current diagnosis for this admission?: Yes Plan: The patient was diagnosed with bilateral DVTs on July 21. The left side was more extensive. The right showed nonocclusive thrombus in the popliteal vein. The left showed extensive acute hyperechoic thrombus in the popliteal, gastrocnemius and peroneal veins. He was placed on apixaban and discharged. He comes in today with his following that, as his describes, got better and is now worse. Still tenderness in his calves. At this point we will institute a continuous heparin infusion for DVTs and hold the apixaban. He will be on the DVT/PE protocol. He denied trauma or prolonged immobility. Extensive unpr ovoked DVTs are worrisome for some other underlying problem. With his adenopathy, malignancy is certainly a concern. We will check for other coagulopathies and have hematology consult. (2) Hypotension Qualifiers: Hypotension type: unspecified hypotension type Qualified Code(s): I95.9 - Hypotension, unspecified Is this a current diagnosis for this admission?: Yes Plan: During this encounter the patient's blood pressure dropped to a systolic of 85. He was immediately given a liter of saline as a bolus and then will receive lactated Ringer solution at 125 mL an hour. If his blood pressure does not improve we can increase the rate of fluid. We will monitor his intake and output. There is no obvious etiology for this drop. He is afebrile despite reporting diaphoresis at home. His white blood cell count is elevated but blood cultures from several days ago are negative. Will monitor closely. (3) Leucocytosis Qualifiers: Leukocytosis type: unspecified Qualified Code(s): D72.829 - Elevated white blood cell count, unspecified Is this a current diagnosis for this admission?: Yes Plan: It is difficult to know the etiology. There is no obvious sign of infection. Blood cultures from July 21 are no growth. Urinalysis with reflex to culture has been ordered but not collected yet. He will be placed on azithromycin for possible COVID but no other antibiotics at this time. (4) Mediastinal lymphadenopathy Is this a current diagnosis for this admission?: Yes Plan: There is a strong family history of malignancy. With his hypercoagulability and marked adenopathy malignancy is certainly the most significant concern. Hematology will be consulting for the hypercoagulable state as well as for the adenopathy. (5) Petechial eruption Is this a current diagnosis for this admission?: Yes Plan: He has petechial lesions on the dorsum of his feet and distal legs. He also has them on the upper extremities. He was given 125 mg of Solu-Medrol in the emergency room and I have started him on 4 mg of Decadron twice a day by intravenous for suspicion of COVID. Platelet counts were in fact elevated. We will repeat a CBC tomorrow. Since vasculitis is a concern I have ordered sed rate, CRP and antinuclear antibody with reflex. (6) Anemia Qualifiers: Anemia type: unspecified type Qualified Code(s): D64.9 - Anemia, uns pecified Is this a current diagnosis for this admission?: Yes Plan: At this point I am not sure of the type of anemia. I have ordered anemia s tudies and as noted above hematology will be consulting. (7) Edema Qualifiers: Edema type: localized Qualified Code(s): R60.0 - Localized edema Is this a current diagnosis for this admission?: Yes Plan: Lower extremity edema is most likely related to his deep venous thromboses (8) Back pain without radiation Is this a current diagnosis for this admission?: Yes Plan: Lumbar x-rays in January of this year revealed a normal thoracic spine and facet arthropathy with degenerative disc disease at the L4-L5 and L5-S1 levels. We will utilize nonsteroidal anti-inflammatory medications as well as narcotic a nalgesia. Eventually he may benefit from physical therapy. (9) Person under investigation for COVID-19 Is this a current diagnosis for this admission?: Yes Plan: Because of the petechiae, elevated white blood cell count and hypercoagulable state we are investigating the possibility of Covid-19. At this time I have started him on azithromycin, Decadron as well as zinc, vitamin C and vitamin D. He is already on a heparin infusion so Lovenox is unnecessary. (10) Cigarette nicotine dependence Qualifiers: Substance use status: uncomplicated Qualified Code(s): F17.210 - Nicotine dependence, cigarettes, uncomplicated Is this a current diagnosis for this admission?: Yes Plan: Since he smokes anywhere from 1 to 2 packs a day I have ordered a 21 mg nicotine patch. - Time Time Spent with patient: 35 or more minutes Smoking Cessation Education: 3 to 10 minutes Medications reviewed and adjusted accordingly: Yes Anticipated Discharge Disposition: Unknown Anticipated Discharge Timeframe: Unknown - Inpatient Certification Based on my medical assessment, after consideration of the patient's comorbidities, presenting symptoms, or acuity I expect that the services needed warrant INPATIENT care.: Yes I certify that my determination is in accordance with my understanding of Medicare's requirements for reasonable and necessary INPATIENT services [42 CFR 412.3e].: Yes Medical Necessity: Failure to Improve With Outpatient Therapy, Need Close Monitoring Due to Risk of Patient Decompensation, Need For IV Fluids, Need For Continuous Telemetry Monitoring, Need for Pain Control Post Hospital Care: D/C or Transfer Summary
[2020-07-24] MEDS ORDERED: HEPARIN SOD (PORCINE) 1,000 UNIT/ML 10 ML VIAL IV PRN (18:08)
[2020-07-24] MEDS ORDERED: HYDROMORPHONE HCL INJ/PF 2 MG/ML AMPULE IV PRN (18:16)
[2020-07-24] MEDS ORDERED: IBUPROFEN 600 MG TABLET PO PRN (18:21)
[2020-07-24] MEDS ORDERED: TIZANIDINE HCL 4 MG TABLET PO PRN (18:23)
[2020-07-24] MEDS ORDERED: NORMAL SALINE 1000 ML 1,000 ML IV ONE (19:30)
[2020-07-24] MEDS ORDERED: AZITHROMYCIN 250 MG TABLET PO ONE (19:30)
--- NOTE | 2020-07-24 20:19 | EKG REPORT ---
SEVERITY:- ABNORMAL ECG - SINUS RHYTHM NONSPECIFIC T ABNORMALITIES, DIFFUSE LEADS : Confirmed by: Natacha Anderson 24-Jul-2020 20:18:44
[2020-07-24 20:26] LABS: INTERNATIONAL RATION (INR) 1.19; PROTHROMBIN TIME 15.3 SEC (11.4-15.4)
[2020-07-24 20:43] LABS: C-REACTIVE PROTEIN 249.6 mg/L (<10.0)
[2020-07-24] MEDS: DEXAMETHASONE SOD PHOSPHATE INJ 4 MG/1 ML VIAL IV SCH (23:05)
[2020-07-24] MEDS: DIAZEPAM 5 MG TABLET PO PRN (23:06)
[2020-07-24] MEDS: NICOTINE 14 MG/24 HR PATCH.TD24 TD SCH (23:14)
[2020-07-24] MEDS ORDERED: OXYCODONE-ACETAMINOPHEN 5-325 MG TABLET ONE (23:24)
[2020-07-25] MEDS ORDERED: NORMAL SALINE 1000 ML 1,000 ML IV ONE (05:15)
[2020-07-25] MEDS: PANTOPRAZOLE SODIUM 40 MG TABLET.DR PO SCH (06:39)
[2020-07-25 06:54] LABS: ABSOLUTE RETICS # 0.039 10^6/uL (0.028-0.122); HEMATOCRIT 35.4 % (37.9-51.0); HEMOGLOBIN 11.8 g/dL (13.5-17.0); MEAN CORPUSCULAR HEMOGLOBIN 30.5 pg (27.0-33.4); MEAN CORPUSCULAR HGB CONC 33.3 g/dL (32.0-36.0); MEAN CORPUSCULAR VOLUME 91 fl (80-97); PLATELET COUNT 478 10^3/uL (150-450); RED BLOOD COUNT 3.87 10^6/uL (4.35-5.55); RED CELL DISTRIBUTION WIDTH 12.4 % (11.5-14.0); RETICULOCYTE COUNT (AUTO) 1.02 % (0.66-2.85); WHITE BLOOD COUNT 22.9 10^3/uL (4.0-10.5)
[2020-07-25 07:22] LABS: ANION GAP 10 (5-19); BLOOD UREA NITROGEN 18 mg/dL (7-20); CALCIUM 8.7 mg/dL (8.4-10.2); CARBON DIOXIDE 25 mmol/L (22-30); CHLORIDE 103 mmol/L (98-107); GLUCOSE 155 mg/dL (75-110); IRON(TIBC) 23.4 ug/dL (49-181); POTASSIUM 4.4 mmol/L (3.6-5.0)
[2020-07-25] MEDS: HEPARIN SODIUM,PORCINE/D5W 25,000 UNIT/250 ML RTUINJ IV PRN ×2 (07:23→12:27)
[2020-07-25] MEDS ORDERED: ALBUTEROL SULFATE HFA (90 MCG/PUFF) 200 PUFF/8.5 GM MDI IH PRN (07:26)
[2020-07-25 07:44] LABS: INTERNATIONAL RATION (INR) 1.08; PROTHROMBIN TIME 14.2 SEC (11.4-15.4)
[2020-07-25 07:45] LABS: PARTIAL THROMBOPLASTIN TIME 45.6 SEC (23.5-35.8)
[2020-07-25 08:28] LABS: FOLATE 5.26 ng/mL (>2.76)
[2020-07-25] MEDS ORDERED: ONDANSETRON HCL INJ/PF 4 MG/2 ML SDV IV PRN (08:30)
[2020-07-25] MEDS: CHOLECALCIFEROL (D3) 1,000 UNIT (25 MCG) TABLET PO SCH (09:49)
[2020-07-25] MEDS: ASCORBIC ACID 500 MG TABLET PO SCH ×2 (09:49→17:28)
[2020-07-25] MEDS: DEXAMETHASONE SOD PHOSPHATE INJ 4 MG/1 ML VIAL IV SCH ×2 (09:49→21:06)
[2020-07-25] MEDS: AZITHROMYCIN 250 MG TABLET PO SCH (09:49)
[2020-07-25] MEDS: ZINC SULFATE 220 MG CAPSULE PO SCH (09:49)
[2020-07-25] MEDS ORDERED: OXYCODONE HCL IR 5 MG TABLET PO PRN (11:44)
[2020-07-25 12:00] LABS: APPEARANCE,URINE CLEAR; BILIRUBIN,URINE NEGATIVE (NEGATIVE); COLOR,URINE YELLOW; GLUCOSE, URINE NEGATIVE (NEGATIVE); KETONES,URINE NEGATIVE (NEGATIVE); PROTEIN,URINE 30 mg/dL (NEGATIVE); URINE SPECIFIC GRAVITY 1.036
[2020-07-25] MEDS: OXYCODONE-ACETAMINOPHEN 5-325 MG TABLET PO PRN (12:21)
--- NOTE | 2020-07-25 15:30 | PDOC PROGRESS REPORT ---
Subjective Progress Note for:: 07/25/20 Subjective:: The patient feels better despite elevated white count. He still moves gingerly in bed due to back pain. The petechiae are much improved. Reason For Visit: COVID SEROLOGY PENDING,PT MUST GO TO 3 N. Physical Exam Vital Signs: Temp Pulse Resp BP Pulse Ox 97.7 F 68 18 126/70 H 96 07/25/20 11:16 07/25/20 14:00 07/25/20 11:16 07/25/20 11:16 07/25/20 11:16 Intake & Output 07/24/20 07/25/20 07/26/20 06:59 06:59 06:59 Intake Total 1520 1311 Output Total 400 Balance 1520 911 Weight 66.8 kg General appearance: PRESENT: cooperative, mild distress, well-developed Head exam: PRESENT: atraumatic, normocephalic Eye exam: PRESENT: conjunctiva pink. ABSENT: scleral icterus Ear exam: PRESENT: normal external ear exam. ABSENT: bleeding, drainage Mouth exam: PRESENT: moist, tongue midline Respiratory exam: PRESENT: clear to auscultation josh, symmetrical, unlabored. ABSENT: prolonged expiratory phas, rales, rhonchi, tachypnea, wheezes Cardiovascular exam: PRESENT: RRR, +S1, +S2. ABSENT: bradycardia, diastolic murmur, irregular rhythm, systolic murmur, tachycardia GI/Abdominal exam: PRESENT: normal bowel sounds, soft. ABSENT: distended, guarding, tenderness Rectal exam: PRESENT: deferred Gentrourinary exam: ABSENT: indwelling catheter Extremities exam: PRESENT: pedal edema, +1 edema Musculoskeletal exam: PRESENT: ambulatory, normal inspection - Other than edema. ABSENT: deformity, dislocation Neurological exam: PRESENT: alert, awake, oriented to person, oriented to place, oriented to time, oriented to situation, CN II-XII grossly intact. ABSENT: normal gait - Displays antalgic gait Psychiatric exam: PRESENT: appropriate affect - Affect reflects his pain. ABSENT: agitated, anxious Focused psych exam: ABSENT: delusional, paranoid, restlessness Skin exam: PRESENT: dry, rash, other - Petechial rash fading to a dusky purple. Lesions are no longer raised.. ABSENT: urticaria, vesicles Results Laboratory Results: 07/25/20 06:25 07/25/20 06:25 07/24/20 07/25/20 07/25/20 19:36 06:25 06:25 WBC 22.9 H RBC 3.87 L Hgb 11.8 L Hct 35.4 L MCV 91 MCH 30.5 MCHC 33.3 RDW 12.4 Plt Count 478 H Retic Count (auto) 1.02 Sodium 137.5 Potassium 4.4 Chloride 103 Carbon Dioxide 25 Anion Gap 10 BUN 18 Creatinine 0.67 Est GFR ( Amer) > 60 Glucose 155 H Calcium 8.7 Magnesium 2.2 Iron 23.4 L TIBC 221 L % Saturation 11 Ferritin 310.00 327.00 C-Reactive Protein 249.6 H Vitamin B12 256.0 Folate 5.26 TSH Urine Color Urine Appearance Urine pH Ur Specific [place] Urine Protein Urine Glucose (UA) Urine Ketones Urine Blood Urine RBC (Auto) 07/25/20 07/25/20 06:25 11:19 WBC RBC Hgb Hct MCV MCH MCHC RDW Plt Count Retic Count (auto) Sodium Potassium Chloride Carbon Dioxide Anion Gap BUN Creatinine Est GFR ( Amer) Glucose Calcium Magnesium Iron TIBC % Saturation Ferritin C-Reactive Protein Vitamin B12 Folate TSH 0.43 L Urine Color YELLOW Urine Appearance CLEAR Urine pH 6.0 Ur Specific [place] 1.036 Urine Protein 30 H Urine Glucose (UA) NEGATIVE Urine Ketones NEGATIVE Urine Blood SMALL H Urine RBC (Auto) 8 07/24/20 07/24/20 07/25/20 11:35 19:36 01:15 Troponin I < 0.012 < 0.012 < 0.012 Impressions: Chest/Abdomen CTA 07/24/20 11:06 IMPRESSION: 1. Due to poor contrast bolus, pulmonary arteries are poorly assessed. No central clot detected but embolus in the peripheral branches is not excluded. 2. Mediastinal and hilar adenopathy. This was not seen in 2014. Nonspecific. Consider the possibility of neoplasm to include lymphoma as well as sarcoid. Assessment and Plan - Diagnosis (1) DVT (deep venous thrombosis) Qualifiers: DVT location: lower extremity Affected thrombotic vein of extremity: other lower extremity vein Chronicity: acute Laterality: bilateral Qualified Code(s): I82.493 - Acute embolism and thrombosis of other specified deep vein of lower extremity, bilateral Is this a current diagnosis for this admission?: Yes Plan: Continue heparin infusion. Coagulopathy studies pending. Hematology to see the patient as well. (2) Leucocytosis Qualifiers: Leukocytosis type: unspecified Qualified Code(s): D72.829 - Elevated white blood cell count, unspecified Is this a current diagnosis for this admission?: Yes Plan: White blood cell count is higher today at 9. This is possibly due to the steroids that are being given for the rash and potential COVID illness. (3) Mediastinal lymphadenopathy Is this a current diagnosis for this admission?: Yes Plan: Worrisome for malignancy. Hematology oncology to consult. (4) Petechial eruption Is this a current diagnosis for this admission?: Yes Plan: Unsure of etiology but clearly responding to steroids. Continue current steroid course. (5) Anemia Qualifiers: Anemia type: unspecified type Qualified Code(s): D64.9 - Anemia, unspecified Is this a current diagnosis for this admission?: Yes Plan: Likely with an iron deficiency component but possibly related to other chronic conditions such as an occult malignancy. (6) Edema Qualifiers: Edema type: localized Qualified Code(s): R60.0 - Localized edema Is this a current diagnosis for this admission?: Yes Plan: Still present but slightly improved. Continue leg elevation and consider diuretic therapy once he is fully hydrated. (7) Back pain without radiation Is this a current diagnosis for this admission?: Yes Plan: Chronic. This is been present for many years. He has lumbar degenerative disc disease from L4-S1 as well as facet arthropathy. He has been told he has a pinched nerve as well. (8) Person under investigation for COVID-19 Is this a current diagnosis for this admission?: Yes Plan: D-dimer is elevated but this is likely from the DVTs. CRP is elevated but this could be related to an occult malignancy. Awaiting COVID serology results. (9) Cigarette nicotine dependence Qualifiers: Substance use status: uncomplicated Qualified Code(s): F17.210 - Nicotine dependence, cigarettes, uncomplicated Is this a current diagnosis for this admission?: Yes Plan: Encourage smoking cessation. The patient expressed this intent during his admission. Nicotine patch. (10) Hypotension Qualifiers: Hypotension type: unspecified hypotension type Qualified Code(s): I95.9 - Hypotension, unspecified Is this a current diagnosis for this admission?: Yes Plan: Resolved with fluids. - Time Time Spent with patient: 15-24 minutes Medications reviewed and adjusted accordingly: Yes Anticipated Discharge Disposition: Home, Self Care Anticipated Discharge Timeframe: Unknown
[2020-07-25] MEDS ORDERED: OXYCODONE HCL IR 5 MG TABLET ONE (18:05)
[2020-07-25] MEDS ORDERED: OXYCODONE HCL IR 5 MG TABLET PO ONE (18:15)
[2020-07-25] MEDS: DIAZEPAM 5 MG TABLET PO PRN (21:05)
[2020-07-25] MEDS: NICOTINE 14 MG/24 HR PATCH.TD24 TD SCH (21:06)
[2020-07-26] MEDS: HEPARIN SODIUM,PORCINE/D5W 25,000 UNIT/250 ML RTUINJ IV PRN ×2 (03:10→17:10)
[2020-07-26] MEDS: OXYCODONE-ACETAMINOPHEN 5-325 MG TABLET PO PRN ×3 (04:21→22:10)
[2020-07-26] MEDS: PANTOPRAZOLE SODIUM 40 MG TABLET.DR PO SCH (05:23)
[2020-07-26] MEDS: DIAZEPAM 5 MG TABLET PO PRN ×3 (05:37→18:43)
--- NOTE | 2020-07-26 08:08 | Progress Note ---
Provider Note Provider Note: Hematology/Oncology consultation was received. Due to COVID restrictions, I have examined the chart and discussed with Dr. Rios, but full exam has not yet been performed. I agree that suspicion of occult malignancy is high. Lymphadenopathy in chest is very non-specific. CT abdomen was negative. I will check PSA. Agree with Heparin for anticoagulation for now. Not yet clear if this was an Eliquis failure or not. I will check antiphosphilipid antibodies, as studies have shown that if this is positive, best treatment option would be warfarin. I will follow with you.
[2020-07-26] MEDS: CHOLECALCIFEROL (D3) 1,000 UNIT (25 MCG) TABLET PO SCH (09:10)
[2020-07-26] MEDS: DEXAMETHASONE SOD PHOSPHATE INJ 4 MG/1 ML VIAL IV SCH ×2 (09:10→23:29)
[2020-07-26] MEDS: AZITHROMYCIN 250 MG TABLET PO SCH (09:10)
[2020-07-26] MEDS: ZINC SULFATE 220 MG CAPSULE PO SCH (09:10)
[2020-07-26] MEDS: ASCORBIC ACID 500 MG TABLET PO SCH (09:10)
[2020-07-26] MEDS: OXYCODONE HCL IR 5 MG TABLET PO PRN ×2 (11:57→20:15)
[2020-07-26] MEDS ORDERED: DIAZEPAM 5 MG TABLET PO ONE (13:00)
--- NOTE | 2020-07-26 16:32 | PDOC PROGRESS REPORT ---
Subjective Progress Note for:: 07/26/20 Subjective:: Patient was seen on morning rounds. He was found resting in bed, maintaining oxygen saturations, on room air. He reports chronic mid-upper back pain, no worse than his usual; though asks to have his percocet adjusted as it does not match his outpatient regimen. He reports worsened BLE discomfort ("aching"), edema and petechia. He denies development of petechia or swelling to his upper extremities, chest or back. He does note right posterior hand erythema and tenderness at phlebotomy site. No induration noted. Otherwise, he denies fever, chills, chest pain, palpitations, dyspnea, orthopnea, abdominal pain, nausea vomiting diarrhea. Admits to worsened anx iety; requests increase in valium No other questions or concerns at this time. Attempted to call at patient's request; n answer. No concerns per nursing. Reason For Visit: COVID SEROLOGY PENDING,PT MUST GO TO 3 N. Physical Exam Vital Signs: Temp Pulse Resp BP Pulse Ox 97.4 F 61 18 107/49 L 98 07/26/20 12:03 07/26/20 12:03 07/26/20 12:03 07/26/20 12:03 07/26/20 12:03 Intake & Output 07/25/20 07/26/20 07/27/20 06:59 06:59 06:59 Intake Total 1520 1852 Output Total 701 Balance 1520 1151 Weight 66.8 kg 66.8 kg General appearance: PRESENT: no acute distress, cooperative, well-developed, well-nourished Head exam: PRESENT: atraumatic, normocephalic Eye exam: PRESENT: conjunctiva pink, EOMI, PERRLA. ABSENT: scleral icterus Mouth exam: PRESENT: moist, tongue midline Respiratory exam: PRESENT: clear to auscultation josh, symmetrical, unlabored. ABSENT: rales, rhonchi, wheezes Cardiovascular exam: PRESENT: RRR, +S1, +S2. ABSENT: diastolic murmur, rubs, systolic murmur Pulses: PRESENT: normal dorsalis pedis pul Vascular exam: PRESENT: normal capillary refill GI/Abdominal exam: PRESENT: normal bowel sounds, soft. ABSENT: distended, guarding, mass, organolmegaly, rebound, tenderness Rectal exam: PRESENT: deferred Extremities exam: PRESENT: full ROM, +2 edema - soft, nonpitting edema to bilateral feet and lower legs extending midway to knees. ABSENT: calf tenderness, clubbing, pedal edema Neurological exam: PRESENT: alert, awake, oriented to person, oriented to place, oriented to time, oriented to situation, CN II-XII grossly intact. ABSENT: motor sensory deficit Psychiatric exam: PRESENT: anxious, appropriate affect, normal mood. ABSENT: homicidal ideation, suicidal ideation Skin exam: PRESENT: dry, intact, warm, other - scattered patches of petichia; primarily to anterior lower legs and plantar surface of feet. None noted to chest/back/hands. No splinter hemorrhages noted.. ABSENT: cyanosis, rash Results Laboratory Results: 07/25/20 06:25 07/25/20 06:25 07/26/20 07/26/20 04:53 14:46 Prostate Specific Ag 0.140 Blood Type B POSITIVE Antibody Screen NEGATIVE 07/24/20 07/24/20 07/25/20 11:35 19:36 01:15 Troponin I < 0.012 < 0.012 < 0.012 Impressions: Chest/Abdomen CTA 07/24/20 11:06 IMPRESSION: 1. Due to poor contrast bolus, pulmonary arteries are poorly assessed. No central clot detected but embolus in the peripheral branches is not excluded. 2. Mediastinal and hilar adenopathy. This was not seen in 2014. Nonspecific. Consider the possibility of neoplasm to include lymphoma as well as sarcoid. Assessment and Plan - Diagnosis (1) DVT (deep venous thrombosis) Qualifiers: DVT location: lower extremity Affected thrombotic vein of extremity: other lower extremity vein Chronicity: acute Laterality: bilateral Qualified Code(s): I82.493 - Acute embolism and thrombosis of other specified deep vein of lower extremity, bilateral Is this a current diagnosis for this admission?: Yes Plan: Some Coagulopathy studies pending. Initial PT 16.2/INR 1.28/PTT 36.3/d-dimer 3.87. Fibrinogen 662 Factor V Leiden pending. Sed rate 107, CRP 249 Ferritin 327 Continue heparin infusion. Hematology consulted. (2) Petechial eruption Is this a current diagnosis for this admission?: Yes Plan: Unsure of etiology but clearly responding to steroids. Continue current steroid course. Will obtain BCx and echocardiogram to evaluate for possible infectious/cardiac embolic source. (3) Anemia Qualifiers: Anemia type: unspecified type Qualified Code(s): D64.9 - Anemia, unspecified Is this a current diagnosis for this admission?: Yes Plan: Hgb stable 11.6-> 11.8 Anemia panel reveals iron deficiency anemia. Hematology is consulted; appreciate Dr. Regalado's assistance. (4) Back pain without radiation Is this a current diagnosis for this admission?: Yes Plan: Chronic. This is been present for many years. He has lumbar degenerative disc disease from L4-S1 as well as facet arthropathy. He has been told he has a pinched nerve as well. Patient's medications were verified on the [place] controlled substance database; prescribed Percocet 10 #90 monthly. Continue home medication regiment. (5) Edema Qualifiers: Edema type: localized Qualified Code(s): R60.0 - Localized edema Is this a current diagnosis for this admission?: Yes Plan: Secondary to #1 Still present but slightly improved. Continue leg elevation and consider diuretic therapy once he is fully hydrated. Remaining management as above. (6) Leucocytosis Qualifiers: Leukocytosis type: unspecified Qualified Code(s): D72.829 - Elevated white blood cell count, unspecified Is this a current diagnosis for this admission?: Yes Plan: WBCs trending up; 15.9-> 22.9 This is possibly due to the steroids that are being given for the rash Remains afebrile. Blood cultures pending No indications for antibiotic therapy at this time. (7) Mediastinal lymphadenopathy Is this a current diagnosis for this admission?: Yes Plan: Worrisome for malignancy. Hematology/Oncology to consult. (8) Person under investigation for COVID-19 Is this a current diagnosis for this admission?: Yes Plan: Ruled out. COVID testing is negative. (9) Hypotension Qualifiers: Hypotension type: unspecified hypotension type Qualified Code(s): I95.9 - Hypotension, unspecified Is this a current diagnosis for this admission?: Yes Plan: Resolved with fluids. (10) Cigarette nicotine dependence Qualifiers: Substance use status: uncomplicated Qualified Code(s): F17.210 - Nicotine dependence, cigarettes, uncomplicated Is this a current diagnosis for this admission?: Yes Plan: Encourage smoking cessation. Nicotine replacement therapies provided. - Time Time Spent with patient: 35 or more minutes Medications reviewed and adjusted accordingly: Yes Anticipated Discharge Disposition: Home, Self Care Anticipated Discharge Timeframe: UTD
--- NOTE | 2020-07-26 20:35 | XCELERA REPORT ---
[address] [address] Transthoracic Echocardiogram Report Name: TRINITY MARION JR Age: 55 yrs Gender: Male : 1965 Patient Status: Inpatient Patient Location: [address] [place] [address] Study Date: 07/26/2020 07:05 PM Height: 68 in Weight: 147 lb BSA: 1.8 m2 Procedure: A complete two-dimensional transthoracic echocardiogram was performed (2D, M-mode, spectral and color flow Doppler). The study was technically adequate with some images being suboptimal in quality. Reason For Study: scattered petichia/PE. ?cardiac thrombus vs endoc Ordering Physician: HERMAN MACARIO Performed By: Mirna Brown Interpretation Summary The left ventricle is normal in size, thickness and function. Left ventricular systolic function is normal. The Ejection Fraction estimate is 65-70%. Doppler measurements suggest normal left ventricular diastolic function. The left ventricular wall motion is normal. There is no LV thrombus. Trace MR, trace to mild TR. No gross evidence of valvular vegetations although transthoracic studies can miss small vegetations, please consider SHIMON if clinically indicated. No prior studies for comparison. MMode/2D Measurements & Calculations RVDd: 3.3 cm LVIDd: 4.2 cm FS: 37.6 % Ao root diam: 2.8 cm IVSd: 1.1 cm LVIDs: 2.6 cm EDV(Teich): Ao root area: 80.7 ml LVPWd: 1.1 cm 6.2 cm2 ESV(Teich): LA dimension: 3.3 cm 25.8 ml EF(Teich): 68.1 % LVLd ap4: 8.0 cm SV(MOD-sp4): EDV(MOD-sp4): 97.0 ml 124.0 ml LVLs ap4: 6.1 cm ESV(MOD-sp4): 27.0 ml EF(MOD-sp4): 78.2 % Doppler Measurements & Calculations MV E max hernando: MV P1/2t max hernando: Ao V2 max: LV V1 max P.8 cm/sec 114.0 cm/sec 164.2 cm/sec 6.6 mmHg MV A max hernando: MV P1/2t: 95.7 msec Ao max PG: LV V1 max: 43.4 cm/sec 10.8 mmHg 128.3 cm/sec MVA(P1/2t): 2.3 cm2 MV E/A: 2.0 MV dec slope: 349.0 cm/sec2 MV dec time: 0.25 sec PA V2 max: TR max hernando: MV P1/2t-pr_phl: 79.5 cm/sec 207.6 cm/sec 95.7 msec PA max PG: TR max P.2 mmHg 2.5 mmHg Left Ventricle The left ventricle is normal in size, thickness and function. Left ventricular systolic function is normal. The Ejection Fraction estimate is 65-70%. Doppler measurements suggest normal left ventricular diastolic function. The left ventricular wall motion is normal. There is no thrombus. Right Ventricle The right ventricle is normal in size, thickness and function. The right ventricular systolic function is normal. Atria The right atrium is normal. The left atrial size is normal. Not well visualized. Mitral Valve There is mild mitral leaflet calcification. There is no evidence of mitral valve prolapse. There is no mitral valve stenosis. There is a trace amount of mitral regurgitation. Aortic Valve The aortic valve is mildly calcified. There is no aortic valvular vegetation. There is no aortic valve stenosis. No aortic regurgitation is present. Tricuspid Valve The tricuspid valve is not well visualized, but is grossly normal. There is no tricuspid valve prolapse. There is no tricuspid stenosis. There is a trace to mild amount of tricuspid regurgitation. Pulmonic Valve The pulmonic valve is not well seen, but is grossly normal. There is no vegetation on the pulmonic valve. There is no pulmonic valvular stenosis. There is no pulmonic valvular regurgitation. Effusions There is no pericardial effusion. There is no pleural effusion. : HERMAN MACARIO Antonio
[2020-07-27] MEDS: NICOTINE 14 MG/24 HR PATCH.TD24 TD SCH ×2 (00:20→22:24)
[2020-07-27] MEDS: OXYCODONE HCL IR 5 MG TABLET PO PRN ×3 (03:45→19:58)
[2020-07-27] MEDS: HEPARIN SODIUM,PORCINE/D5W 25,000 UNIT/250 ML RTUINJ IV PRN ×2 (05:19→18:27)
[2020-07-27] MEDS: PANTOPRAZOLE SODIUM 40 MG TABLET.DR PO SCH (05:19)
[2020-07-27 05:38] LABS: HEMATOCRIT 31.3 % (37.9-51.0); HEMOGLOBIN 10.6 g/dL (13.5-17.0); MEAN CORPUSCULAR HEMOGLOBIN 30.6 pg (27.0-33.4); MEAN CORPUSCULAR HGB CONC 33.8 g/dL (32.0-36.0); MEAN CORPUSCULAR VOLUME 90 fl (80-97); PLATELET COUNT 453 10^3/uL (150-450); RED BLOOD COUNT 3.47 10^6/uL (4.35-5.55); RED CELL DISTRIBUTION WIDTH 12.5 % (11.5-14.0); WHITE BLOOD COUNT 17.8 10^3/uL (4.0-10.5)
[2020-07-27] MEDS: DIAZEPAM 5 MG TABLET PO PRN ×3 (05:50→18:28)
[2020-07-27 05:54] LABS: ANION GAP 5 (5-19); BLOOD UREA NITROGEN 15 mg/dL (7-20); CALCIUM 8.6 mg/dL (8.4-10.2); CARBON DIOXIDE 29 mmol/L (22-30); CHLORIDE 105 mmol/L (98-107); GLUCOSE 141 mg/dL (75-110); POTASSIUM 4.1 mmol/L (3.6-5.0)
[2020-07-27] MEDS: OXYCODONE-ACETAMINOPHEN 5-325 MG TABLET PO PRN ×3 (06:17→23:01)
[2020-07-27 06:43] LABS: FREE T3 2.96 pg/mL (2.77-5.27); FREE T4 (FREE THYROXINE) 1.1 ng/dL (0.78-2.19)
[2020-07-27 10:31] LABS: ANTINUCLEAR ANTIBODIES Negative (Negative)
[2020-07-27] MEDS: DEXAMETHASONE SOD PHOSPHATE INJ 4 MG/1 ML VIAL IV SCH ×2 (10:46→22:14)
--- NOTE | 2020-07-27 11:31 | PDOC CONSULTATION ---
Consultation Consult Date: 07/27/20 Provider Consulted: VANESSA DEJESUS Consult reason:: Hematology/Oncology consultation was requested for patient with new onset bilateral DVTs and petechial rash. History of Present Illness Admission Date/PCP: 07/24/20 17:55 WANG BARROSO MD History of Present Illness: TRINITY MARION JR is a 55 year old male who states that he thought he was initially bitten by a spider, as 3-4 days ago, he developed a sudden onset rash over his ankles as well as "bumps" on his knees which then formed blisters. The rash went from his ankles, up the back of his thighs to his buttocks. This was followed by swelling in both legs. He also developed night sweats for 3 days. He denies any dyspnea, but has had increased headaches and neck pain. He started using ibuprofen at home for pain and did see some blood in his stool as well as dark urine. Today, he states that he is feeling much better. He is now able to walk around his room. Past Medical History Cardiac Medical History: Denies: Coronary Artery Disease, Myocardial Infarction, Hypertension Pulmonary Medical History: Reports: Chronic Obstructive Pulmonary Disease (COPD) Denies: Asthma, Bronchitis, Pneumonia Neurological Medical History: Denies: Seizures Musculoskeltal Medical History: Reports: Arthritis, Other - chronic back pain Psychiatric Medical History: Denies: Depression Hematology: Denies: Anemia Infectious Medical History: Reports: Other Infectious History Note: Scarlet fever as a child, Shingles. Past Surgical History Past Surgical History: Reports: Other - Removal of lesion on the upper lip. Colonoscopy by Dr. Morales years ago. Denies: Pacemaker Social History Occupation: sheet rock installer Lives with: Spouse/Significant other Smoking Status: Former Smoker Electronic Cigarette use?: No Number of Years Smokin Last Time Smoked: 07/16/2020 Frequency of Alcohol Use: None Hx Recreational Drug Use: No Drugs: None Hx Prescription Drug Abuse: No Past Social History Note: , 3 kids. - Advance Directive Resuscitation Status: Full Code Family History Family History: Malignancy - Throat cancer in brother, colon cancer in mother. No DVT/PE family history Parental Family History Reviewed: Yes - Father lung cancer age 66. Mother alive with colon cancer Children Family History Reviewed: Yes Sibling(s) Family History Reviewed.: Yes - Brother throat cancer Medication/Allergy Home Medications: Apixaban [Eliquis 5 mg Tablet] 5 mg PO BID #30 tablet 07/21/20 Oxycodone HCl/Acetaminophen [Oxycodone-Acetaminophen 10-325] 1 each PO Q8HP PRN 07/21/20 Tizanidine HCl [Zanaflex 4 Mg Tablet] 4 mg PO TIDP PRN 07/21/20 Diazepam [Valium 2 mg Tablet] 2 mg PO Q6HP PRN 07/25/20 Allergies/Adverse Reactions: cyclobenzaprine HCl [From Flexeril] Allergy (Severe, Verified 07/24/20 09:54) Hives morphine Allergy (Intermediate, Verified 07/24/20 09:54) Burning rash Review of Systems Constitutional: PRESENT: headache(s), night sweats, weakness Eyes: PRESENT: visual disturbances Nose, Mouth, and Throat: ABSENT: sore throat Cardiovascular: ABSENT: chest pain, dyspnea on exertion Respiratory: ABSENT: dyspnea Gastrointestinal: PRESENT: hematochezia Genitourinary: PRESENT: other - dark urine Musculoskeletal: PRESENT: back pain Integumentary: PRESENT: as per HPI Neurological: PRESENT: weakness Psychiatric: PRESENT: anxiety Physical Exam Vital Signs: Temp Pulse Resp BP Pulse Ox 97.5 F 48 L 20 108/49 L 98 07/27/20 03:16 07/27/20 07:00 07/27/20 03:16 07/27/20 03:16 07/27/20 03:16 Intake & Output 07/26/20 07/27/20 07/28/20 06:59 06:59 06:59 Intake Total 1852 900 Output Total 701 Balance 1151 900 Weight 66.8 kg 65.2 kg General appearance: PRESENT: no acute distress, well-developed, well-nourished Exam: 55 year old male. Head exam: PRESENT: atraumatic, normocephalic Eye exam: PRESENT: EOMI Mouth exam: PRESENT: other - upper dentures in place. Throat exam: ABSENT: tonsillar erythema Neck exam: ABSENT: lymphadenopathy, tenderness Respiratory exam: PRESENT: clear to auscultation josh, unlabored Cardiovascular exam: PRESENT: RRR GI/Abdominal exam: PRESENT: soft. ABSENT: organolmegaly, tenderness Extremities exam: PRESENT: +2 edema Musculoskeletal exam: PRESENT: ambulatory Neurological exam: PRESENT: alert, awake Psychiatric exam: PRESENT: appropriate affect Skin exam: PRESENT: other - petechial and pustular rash over both legs. Results Laboratory Results: 07/27/20 04:30 07/27/20 04:30 07/26/20 07/26/20 07/27/20 04:53 14:46 04:30 WBC RBC Hgb Hct MCV MCH MCHC RDW Plt Count Sodium 138.6 Potassium 4.1 Chloride 105 Carbon Dioxide 29 Anion Gap 5 BUN 15 Creatinine 0.64 Est GFR ( Amer) > 60 Glucose 141 H Calcium 8.6 Prostate Specific Ag 0.140 Free T4 Free T3 pg/mL Blood Type B POSITIVE Antibody Screen NEGATIVE 07/27/20 07/27/20 04:30 04:30 WBC 17.8 H RBC 3.47 L Hgb 10.6 L Hct 31.3 L MCV 90 MCH 30.6 MCHC 33.8 RDW 12.5 Plt Count 453 H Sodium Potassium Chloride Carbon Dioxide Anion Gap BUN Creatinine Est GFR ( Amer) Glucose Calcium Prostate Specific Ag Free T4 1.10 Free T3 pg/mL 2.96 Blood Type Antibody Screen 07/24/20 07/24/20 07/25/20 11:35 19:36 01:15 Troponin I < 0.012 < 0.012 < 0.012 Impressions: Chest/Abdomen CTA 07/24/20 11:06 IMPRESSION: 1. Due to poor contrast bolus, pulmonary arteries are poorly assessed. No central clot detected but embolus in the peripheral branches is not excluded. 2. Mediastinal and hilar adenopathy. This was not seen in 2014. Nonspecific. Consider the possibility of neoplasm to include lymphoma as well as sarcoid. Status: Image reviewed by me Assessment & Plan - Diagnosis (1) DVT (deep venous thrombosis) Qualifiers: DVT location: lower extremity Affected thrombotic vein of extremity: other lower extremity vein Chronicity: acute Laterality: bilateral Qualified Code(s): I82.493 - Acute embolism and thrombosis of other specified deep vein of lower extremity, bilateral Is this a current diagnosis for this admission?: Yes Plan: Currently on heparin. Await pantiphospholipid Ab panel. If this is positive, then would transition to warfarin. If negative, may start a newer targeted anticoagulant. Plan 6 months of therapy. Further follow-up as outpatient. (2) Leucocytosis Qualifiers: Leukocytosis type: unspecified Qualified Code(s): D72.829 - Elevated white blood cell count, unspecified Is this a current diagnosis for this admission?: Yes Plan: He did receive Dexamethasone. However, rash is concerning for an infectious process, although no fever. He did have night sweats, which may be an indication of an acute process. (3) Mediastinal lymphadenopathy Is this a current diagnosis for this admission?: Yes Plan: Most likely reactive, but lymphoma is still possible. No obvious palpable lymphadenopathy available for biopsy at this time. Plan to repeat CT as outpatient. (4) Petechial eruption Is this a current diagnosis for this admission?: Yes Plan: Still with a high suspicion for an infectious process. Patient initially thought this may have been due to an insect bite. Consider ID consult. May test for [place] spotted fever or Lyme disease, based on the rash. - Plan Summary Plan Summary: Patient was discussed in detail with Bright Tam. Thank you for this consultation. I will continue to follow him with you. He does seem to be improving with current therapy.
[2020-07-27] MEDS ORDERED: RINGERS SOLUTION,LACTATED 1,000 ML IV PRN (17:09)
--- NOTE | 2020-07-27 17:11 | PDOC PROGRESS REPORT ---
Subjective Progress Note for:: 07/27/20 Subjective:: Patient was seen on morning rounds. He was found resting in bed, comfortably, on room air. States he is feeling much better today. BLE edema is much improved, tenderness has decreased. No additional petechial rash today. He further denies fever, chills, chest pain, palpitations, dyspnea, orthopnea, abdominal pain, nausea vomiting diarrhea. He has no questions or concerns at this time. He did have a separate discussion with the patient's today. Most of her questions were regarding tests that are pending that would be best addressed by hematology/oncology. I recommended that tomorrow morning, the patient call her and place her on speaker phone while Dr. Regalado is rounding so that they can participate in a discussion together. No concerns per nursing. Reason For Visit: COVID SEROLOGY PENDING,PT MUST GO TO 3 N. Physical Exam Vital Signs: Temp Pulse Resp BP Pulse Ox 97.5 F 83 20 108/49 L 98 07/27/20 10:00 07/27/20 14:00 07/27/20 03:16 07/27/20 03:16 07/27/20 03:16 Intake & Output 07/26/20 07/27/20 07/28/20 06:59 06:59 06:59 Intake Total 1852 900 Output Total 701 Balance 1151 900 Weight 66.8 kg 65.2 kg General appearance: PRESENT: no acute distress, cooperative, well-developed, well-nourished Head exam: PRESENT: atraumatic, normocephalic Eye exam: PRESENT: conjunctiva pink, EOMI, PERRLA. ABSENT: scleral icterus Mouth exam: PRESENT: moist, tongue midline Respiratory exam: PRESENT: clear to auscultation josh, symmetrical, unlabored. ABSENT: rales, rhonchi, wheezes Cardiovascular exam: PRESENT: RRR, +S1, +S2. ABSENT: diastolic murmur, rubs, systolic murmur Pulses: PRESENT: normal dorsalis pedis pul Vascular exam: PRESENT: normal capillary refill Rectal exam: PRESENT: deferred Extremities exam: PRESENT: full ROM, pedal edema - Decreased pedal edema, +2 edema - soft, nonpitting edema to bilateral feet and lower legs extending midway to knees. ABSENT: calf tenderness, clubbing Neurological exam: PRESENT: alert, awake, oriented to person, oriented to place, oriented to time, oriented to situation, CN II-XII grossly intact. ABSENT: motor sensory deficit Psychiatric exam: PRESENT: appropriate affect, normal mood. ABSENT: homicidal ideation, suicidal ideation Skin exam: PRESENT: dry, intact, warm, other - scattered patches of petichia; primarily to anterior lower legs and plantar surface of feet. None noted to chest/back/hands. No Janeway lesions, Osler nodes, splinter hemorrhages noted. ABSENT: cyanosis, rash Results Laboratory Results: 07/27/20 04:30 07/27/20 04:30 07/27/20 07/27/20 07/27/20 04:30 04:30 04:30 WBC 17.8 H RBC 3.47 L Hgb 10.6 L Hct 31.3 L MCV 90 MCH 30.6 MCHC 33.8 RDW 12.5 Plt Count 453 H Sodium 138.6 Potassium 4.1 Chloride 105 Carbon Dioxide 29 Anion Gap 5 BUN 15 Creatinine 0.64 Est GFR ( Amer) > 60 Glucose 141 H Calcium 8.6 Free T4 1.10 Free T3 pg/mL 2.96 07/24/20 07/24/20 07/25/20 11:35 19:36 01:15 Troponin I < 0.012 < 0.012 < 0.012 Impressions: Chest/Abdomen CTA 07/24/20 11:06 IMPRESSION: 1. Due to poor contrast bolus, pulmonary arteries are poorly assessed. No central clot detected but embolus in the peripheral branches is not excluded. 2. Mediastinal and hilar adenopathy. This was not seen in 2014. Nonspecific. Consider the possibility of neoplasm to include lymphoma as well as sarcoid. Assessment and Plan - Diagnosis (1) DVT (deep venous thrombosis) Qualifiers: DVT location: lower extremity Affected thrombotic vein of extremity: other lower extremity vein Chronicity: acute Laterality: bilateral Qualified Code(s): I82.493 - Acute embolism and thrombosis of other specified deep vein of lower extremity, bilateral Is this a current diagnosis for this admission?: Yes Plan: Some Coagulopathy studies pending. Initial PT 16.2/INR 1.28/PTT 36.3/d-dimer 3.87. Fibrinogen 662 Factor V Leiden pending. Sed rate 107, CRP 249 Ferritin 327 Continue heparin infusion. Hematology consulted. (2) Petechial eruption Is this a current diagnosis for this admission?: Yes Plan: Echocardiogram is benign. Patient feels that he may have had a bug bite prior to start of petechial rash. We will send out Tickborne illness panel. Continue current steroid course; decrease dose. (3) Anemia Qualifiers: Anemia type: unspecified type Qualified Code(s): D64.9 - Anemia, unspecified Is this a current diagnosis for this admission?: Yes Plan: Hgb stable 11.6-> 11.8 Anemia panel reveals iron deficiency anemia. Hematology is consulted; appreciate Dr. Regalado's assistance. (4) Back pain without radiation Is this a current diagnosis for this admission?: Yes Plan: Chronic. This is been present for many years. He has lumbar degenerative disc disease from L4-S1 as well as facet arthropathy. He has been told he has a pinched nerve as well. Patient's medications were verified on the [place] controlled substance database; prescribed Percocet 10/325 #90 monthly. Continue home medication regiment. (5) Edema Qualifiers: Edema type: localized Qualified Code(s): R60.0 - Localized edema Is this a current diagnosis for this admission?: Yes Plan: Slightly improved Secondary to #1 VINAYAK hose and elevation. Remaining management as above. (6) Leucocytosis Qualifiers: Leukocytosis type: unspecified Qualified Code(s): D72.829 - Elevated white blood cell count, unspecified Is this a current diagnosis for this admission?: Yes Plan: WBCs trending down; 15.9-> 22.9-> 17 This is possibly due to the steroids that are being given for the rash Remains afebrile. Blood cultures negative at 24 hours Tickborne illness panel pending. No indications for antibiotic therapy at this time. (7) Mediastinal lymphadenopathy Is this a current diagnosis for this admission?: Yes Plan: Worrisome for malignancy. Hematology/Oncology to consult. (8) Hypotension Qualifiers: Hypotension type: unspecified hypotension type Qualified Code(s): I95.9 - Hypotension, unspecified Is this a current diagnosis for this admission?: Yes Plan: Resolved with fluids. (9) Cigarette nicotine dependence Qualifiers: Substance use status: uncomplicated Qualified Code(s): F17.210 - Nicotine dependence, cigarettes, uncomplicated Is this a current diagnosis for this admission?: Yes Plan: Encourage smoking cessation. Nicotine replacement therapies provided. (10) Person under investigation for COVID-19 Is this a current diagnosis for this admission?: Yes Plan: Ruled out. COVID testing is negative. - Time Time Spent with patient: 35 or more minutes Medications reviewed and adjusted accordingly: Yes Anticipated Discharge Disposition: Home with Home Health Anticipated Discharge Timeframe: UTD
[2020-07-28] MEDS: DIAZEPAM 5 MG TABLET PO PRN ×2 (00:30→06:48)
[2020-07-28] MEDS: OXYCODONE HCL IR 5 MG TABLET PO PRN ×2 (02:11→09:45)
[2020-07-28] MEDS: PANTOPRAZOLE SODIUM 40 MG TABLET.DR PO SCH (05:40)
[2020-07-28 06:36] LABS: APPEARANCE,URINE CLEAR; BILIRUBIN,URINE NEGATIVE (NEGATIVE); COLOR,URINE YELLOW; GLUCOSE, URINE NEGATIVE (NEGATIVE); KETONES,URINE NEGATIVE (NEGATIVE); LEUKOCYTE ESTERASE,URINE NEGATIVE (NEGATIVE); NITRITE,URINE NEGATIVE (NEGATIVE); PROTEIN,URINE NEGATIVE (NEGATIVE); URINE SPECIFIC GRAVITY 1.013
[2020-07-28 06:42] LABS: ADD MANUAL MICROSCOPIC YES
[2020-07-28] MEDS: HEPARIN SODIUM,PORCINE/D5W 25,000 UNIT/250 ML RTUINJ IV PRN (06:44)
[2020-07-28 07:17] LABS: ANTICARDIOLIPIN IGA AB <9 APL U/mL (0-11); ANTICARDIOLIPIN IGG AB <9 GPL U/mL (0-14); ANTICARDIOLIPIN IGM AB <9 MPL U/mL (0-12)
--- NOTE | 2020-07-28 07:37 | Progress Note ---
Provider Note Provider Note: Anti-phospholipid Antibody screen is still pending. Patient may be transitioned to Lovenox from the Heparin drip, if OK with Hospitalists. Plan to change to either warfarin or a newer agent once APA results are known. Please call with questions. I am happy to follow as outpatient as well.
[2020-07-28] MEDS: DEXAMETHASONE SOD PHOSPHATE INJ 4 MG/1 ML VIAL IV SCH (09:46)
[2020-07-28] MEDS ORDERED: ENOXAPARIN SODIUM INJ 80 MG/0.8 ML DISP.SYRIN SUBCUT SCH (10:00)
[2020-07-28] MEDS ORDERED: DOXYCYCLINE HYCLATE 100 MG TABLET PO SCH (10:00)
[2020-07-28 13:39] VITALS: BP 101/55
[2020-07-29 15:06] LABS: LYME DISEASE IGM AB <0.80 index (0.00-0.79)
--- NOTE | 2020-07-30 18:09 | PDOC DISCHARGE SUMMARY ---
Impression - Admit/DC Date/PCP Admission Date/Primary Care Provider: 07/24/20 17:55 WANG BARROSO MD Discharge Date: 07/28/20 - Discharge Diagnosis (1) DVT (deep venous thrombosis) Is this a current diagnosis for this admission?: Yes (2) Petechial eruption Is this a current diagnosis for this admission?: Yes (3) Anemia Is this a current diagnosis for this admission?: Yes (4) Back pain without radiation Is this a current diagnosis for this admission?: Yes (5) Edema Is this a current diagnosis for this admission?: Yes (6) Leucocytosis Is this a current diagnosis for this admission?: Yes (7) Mediastinal lymphadenopathy Is this a current diagnosis for this admission?: Yes (8) Hypotension Is this a current diagnosis for this admission?: Yes (9) Cigarette nicotine dependence Is this a current diagnosis for this admission?: Yes (10) Person under investigation for COVID-19 Is this a current diagnosis for this admission?: Yes (11) Tick-borne fever Is this a current diagnosis for this admission?: Yes - Additional Information Resuscitation Status: Full Code Discharge Diet: Regular Discharge Activity: Activity As Tolerated, Balance Activity w/Rest, Keep Legs Elevated, Slowly Increase Activity Referrals: VANESSA REGALADO MD [ACTIVE STAFF] - 08/26/20 3:30 pm (Follow up in 1 week to discuss long-term anticoagulant options.) WANG BARROSO MD [Primary Care Provider] - 08/04/20 2:45 pm Prescriptions: Enoxaparin Sodium [Lovenox Inj 80 mg/0.8 ml Disp.syrin] 80 mg SUBCUT Q12 #20 disp.syrin Nicotine [Nicoderm 14 mg/24 Hr Transdermal Patch] 1 each TD QHS #30 patch.td24 Oxycodone HCl/Acetaminophen [Percocet 5-325 mg Tablet] 2 tab PO Q8HP PRN #20 tablet PRN Reason: Diazepam [Valium 5 mg Tablet] 5 mg PO TIDP PRN #10 tablet PRN Reason: Doxycycline Hyclate [Vibramycin 100 mg Tablet] 100 mg PO Q12 #40 tablet Home Medications: Oxycodone HCl/Acetaminophen [Oxycodone-Acetaminophen 10-325] 1 each PO Q8HP PRN 07/21/20 Tizanidine HCl [Zanaflex 4 mg Tablet] 4 mg PO TIDP PRN 07/21/20 Diazepam [Valium 2 mg Tablet] 2 mg PO Q6HP PRN 07/25/20 Acetaminophen [Tylenol 325 mg Tablet] 650 mg PO Q4HP PRN tablet 07/28/20 Diazepam [Valium 5 mg Tablet] 5 mg PO TIDP PRN #10 tablet 07/28/20 Doxycycline Hyclate [Vibramycin 100 mg Tablet] 100 mg PO Q12 #40 tablet 07/28/20 Enoxaparin Sodium [Lovenox Inj 80 mg/0.8 ml Disp.syrin] 80 mg SUBCUT Q12 #20 disp.syrin 07/28/20 Nicotine [Nicoderm 14 mg/24 Hr Transdermal Patch] 1 each TD QHS #30 patch.td24 07/28/20 Oxycodone HCl/Acetaminophen [Percocet 5-325 mg Tablet] 2 tab PO Q8HP PRN #20 tablet 07/28/20 History of Present Illiness History of Present Illness: The patient is a 55-year-old male with a past medical history significant for history of DVT, arthritis, opiate dependent chronic pain, and anxiety who presented to the emergency department with a complaint of progressively worsening bilateral lower extremity edema, tenderness, generalized malaise, fatigue, fever, chills, cough, and petechial rash to extremities. Hospital Course Hospital Course: (1) DVT (deep venous thrombosis) Some Coagulopathy studies pending. Initial PT 16.2/INR 1.28/PTT 36.3/d-dimer 3.87. Fibrinogen 662 Factor V Leiden pending. Sed rate 107, CRP 249 Ferritin 327 Initially placed on heparin infusion. Hematology consulted; discussed with Dr. Grewal prior to discharge. Recommends Lovenox and outpatient follow-up. (2) Petechial eruption Suspect tickborne illness; RMSF testing was equivocal. Echocardiogram is benign. Patient feels that he may have had a bug bite prior to start of petechial rash. We will send out Tickborne illness panel. Short course of steroids during admission. Discharged on p.o. doxycycline. (3) Anemia Hgb stable 11.6-> 11.8-> 10.6 Anemia panel reveals iron deficiency anemia. Hematology is consulted; appreciate Dr. Regalado's assistance. Outpatient follow up. (4) Back pain without radiation Chronic. This is been present for many years. He has lumbar degenerative disc disease from L4-S1 as well as facet arthropathy. He has been told he has a pinched nerve as well. Patient's medications were verified on the [place] controlled substance database; prescribed Percocet 10/325 #90 monthly. Continue home medication regiment. (5) Edema Improved Secondary to #1 VINAYAK hose and elevation. Remaining management as above. (6) Leucocytosis WBCs trending down; 15.9-> 22.9-> 17 This is possibly due to the steroids that are being given for the rash Remains afebrile. Blood cultures negative at 4 days Tickborne illness panel evaluated. Lyme is negative. RMSF is equivocal. Ehrlichia is pending. Patient is started on doxycycline 100 mg BID and discharged w/ Rx for 21 day course. (7) Mediastinal lymphadenopathy Hematology/Oncology to consult. Follow up with Dr. Regalado in 1 month. (8) Hypotension Resolved with fluids. (9) Cigarette nicotine dependence Encourage smoking cessation. Nicotine replacement therapies provided. (10) Person under investigation for COVID-19 Ruled out. COVID testing is negative. Physical Exam Vital Signs: Temp Pulse Resp BP Pulse Ox 97.4 F 70 14 101/55 L 98 07/28/20 13:00 07/28/20 13:00 07/28/20 13:00 07/28/20 13:00 07/28/20 13:00 Intake & Output 07/29/20 07/30/20 07/31/20 06:59 06:59 06:59 Weight 78.3 kg General appearance: PRESENT: no acute distress, cooperative, well-developed, well-nourished Head exam: PRESENT: atraumatic, normocephalic Eye exam: PRESENT: conjunctiva pink, EOMI, PERRLA. ABSENT: scleral icterus Mouth exam: PRESENT: moist, tongue midline Respiratory exam: PRESENT: clear to auscultation josh, symmetrical, unlabored. ABSENT: rales, rhonchi, wheezes Cardiovascular exam: PRESENT: RRR, +S1, +S2. ABSENT: diastolic murmur, rubs, systolic murmur Pulses: PRESENT: normal dorsalis pedis pul Vascular exam: PRESENT: normal capillary refill Rectal exam: PRESENT: deferred Extremities exam: PRESENT: full ROM, pedal edema, +1 edema - soft, nonpitting edema to bilateral feet and lower legs extending midway to knees.. ABSENT: calf tenderness, clubbing Neurological exam: PRESENT: alert, awake, oriented to person, oriented to place, oriented to time, oriented to situation, CN II-XII grossly intact. ABSENT: motor sensory deficit Psychiatric exam: PRESENT: appropriate affect, normal mood. ABSENT: homicidal ideation, suicidal ideation Skin exam: PRESENT: dry, erythema - Scattered patches of petichia; primarily to anterior lower legs and plantar surface of feet. Improved appeareance., intact, warm. ABSENT: cyanosis, rash Results Laboratory Results: WBC 17.8 10^3/uL (4.0-10.5) H 07/27/20 04:30 RBC 3.47 10^6/uL (4.35-5.55) L 07/27/20 04:30 Hgb 10.6 g/dL (13.5-17.0) L 07/27/20 04:30 Hct 31.3 % (37.9-51.0) L 07/27/20 04:30 MCV 90 fl (80-97) 07/27/20 04:30 MCH 30.6 pg (27.0-33.4) 07/27/20 04:30 MCHC 33.8 g/dL (32.0-36.0) 07/27/20 04:30 RDW 12.5 % (11.5-14.0) 07/27/20 04:30 Plt Count 453 10^3/uL (150-450) H 07/27/20 04:30 Lymph % (Auto) 7.6 % (13-45) L 07/24/20 11:35 [place] % (Auto) 9.2 % (3-13) 07/24/20 11:35 Eos % (Auto) 0.1 % (0-6) 07/24/20 11:35 Baso % (Auto) 0.5 % (0-2) 07/24/20 11:35 Reticulocyte # 0.039 10^6/uL (0.028-0.122) 07/25/20 06:25 Absolute Neuts (auto) 12.5 10^3/uL (1.7-8.2) H 07/24/20 11:35 Absolute Lymphs (auto) 1.2 10^3/uL (0.5-4.7) 07/24/20 11:35 Absolute Monos (auto) 1.4 10^3/uL (0.1-1.4) 07/24/20 11:35 Absolute Eos (auto) 0.0 10^3/uL (0.0-0.6) 07/24/20 11:35 Absolute Basos (auto) 0.1 10^3/uL (0.0-0.2) 07/24/20 11:35 Seg Neutrophils % 82.6 % (42-78) H 07/24/20 11:35 ESR 107 mm/hr (0-20) H 07/24/20 19:36 Retic Count (auto) 1.02 % (0.66-2.85) 07/25/20 06:25 PT 14.2 SEC (11.4-15.4) 07/25/20 06:25 INR 1.08 07/25/20 06:25 APTT 88.7 SEC (23.5-35.8) H 07/28/20 05:10 Fibrinogen 662 mg/dL (209-497) H 07/26/20 12:40 D-Dimer 3.87 ug/mL (0.00-0.50) H 07/24/20 19:36 Factor V Leiden Comment (.) 07/25/20 06:25 Sodium 138.6 mmol/L (137-145) 07/27/20 04:30 Potassium 4.1 mmol/L (3.6-5.0) 07/27/20 04:30 Chloride 105 mmol/L (98-107) 07/27/20 04:30 Carbon Dioxide 29 mmol/L (22-30) 07/27/20 04:30 Anion Gap 5 (5-19) 07/27/20 04:30 BUN 15 mg/dL (7-20) 07/27/20 04:30 Creatinine 0.64 mg/dL (0.52-1.25) 07/27/20 04:30 Est GFR ( Amer) > 60 (>60) 07/27/20 04:30 Est GFR (MDRD) Non-Af > 60 (>60) 07/27/20 04:30 Glucose 141 mg/dL (75-110) H 07/27/20 04:30 Calcium 8.6 mg/dL (8.4-10.2) 07/27/20 04:30 Magnesium 2.2 mg/dL (1.6-2.3) 07/25/20 06:25 Iron 23.4 ug/dL (49-181) L 07/25/20 06:25 TIBC 221 ug/dL (250-450) L 07/25/20 06:25 % Saturation 11 % 07/25/20 06:25 Ferritin 327.00 ng/mL (17.9-464.0) 07/25/20 06:25 Total Bilirubin 0.9 mg/dL (0.2-1.3) 07/24/20 11:35 Direct Bilirubin 0.3 mg/dL (0.0-0.4) 07/24/20 11:35 Neonat Total Bilirubin Not Reportable 07/24/20 11:35 Neonat Direct Bilirubin Not Reportable 07/24/20 11:35 Neonat Indirect Bili Not Reportable 07/24/20 11:35 AST 23 U/L (17-59) 07/24/20 11:35 ALT 28 U/L (<50) 07/24/20 11:35 Alkaline Phosphatase 217 U/L (38-126) H 07/24/20 11:35 Lactate Dehydrogenase 178 U/L (120-246) 07/24/20 19:36 Troponin I < 0.012 ng/mL 07/25/20 01:15 C-Reactive Protein 249.6 mg/L (<10.0) H 07/24/20 19:36 Total Protein 6.8 g/dL (6.3-8.2) 07/24/20 11:35 Albumin 3.4 g/dL (3.5-5.0) L 07/24/20 11:35 Prostate Specific Ag 0.140 ng/mL (<4.00) 07/26/20 04:53 Vitamin B12 256.0 pg/mL (239-931) 07/25/20 06:25 Folate 5.26 ng/mL (>2.76) 07/25/20 06:25 TSH 0.43 uIU/mL (0.47-4.68) L 07/25/20 06:25 Free T4 1.10 ng/dL (0.78-2.19) 07/27/20 04:30 Free T3 pg/mL 2.96 pg/mL (2.77-5.27) 07/27/20 04:30 Urine Color YELLOW 07/28/20 06:21 Urine Appearance CLEAR 07/28/20 06:21 Urine pH 6.0 (5.0-9.0) 07/28/20 06:21 Ur Specific [place] 1.013 07/28/20 06:21 Urine Protein NEGATIVE mg/dL (NEGATIVE) 07/28/20 06:21 Urine Glucose (UA) NEGATIVE mg/dL (NEGATIVE) 07/28/20 06:21 Urine Ketones NEGATIVE mg/dL (NEGATIVE) 07/28/20 06:21 Urine Blood MODERATE (NEGATIVE) H 07/28/20 06:21 Urine Nitrite NEGATIVE (NEGATIVE) 07/28/20 06:21 Urine Nitrite (Reflex) NEGATIVE (NEGATIVE) 07/25/20 11:19 Urine Bilirubin NEGATIVE (NEGATIVE) 07/28/20 06:21 Urine Urobilinogen 4.0 mg/dL (<2.0) H 07/28/20 06:21 Ur Leukocyte Esterase NEGATIVE (NEGATIVE) 07/28/20 06:21 Leukocyte Esterase Rfl NEGATIVE (NEGATIVE) 07/25/20 11:19 Urine RBC (Auto) 8 /HPF 07/25/20 11:19 Urine RBC 1-5 /HPF 07/28/20 06:21 Urine WBC 1-5 /HPF 07/28/20 06:21 Urine WBC (Reflex) 2 /HPF 07/25/20 11:19 Urine Mucus (Auto) OCC /LPF 07/25/20 11:19 Urine Ascorbic Acid NEGATIVE (NEGATIVE) 07/28/20 06:21 Anti-Nuclear Antibody Negative (Negative) 07/25/20 06:25 Anti-Cardiolipin IgG Ab <9 GPL U/mL (0-14) 07/26/20 12:40 Anti-Cardiolipin IgA Ab <9 APL U/mL (0-11) 07/26/20 12:40 Anti-Cardiolipin IgM Ab <9 MPL U/mL (0-12) 07/26/20 12:40 Lyme Screen IgG & IgM <0.91 ISR (0.00-0.90) 07/27/20 14:43 Lyme IgG 18 kDa Band Not Reportable 07/27/20 14:43 Lyme IgG 23 kDa Band Not Reportable 07/27/20 14:43 Lyme IgG 28 kDa Band Not Reportable 07/27/20 14:43 Lyme IgG 30 kDa Band Not Reportable 07/27/20 14:43 Lyme IgG 39 kDa Band Not Reportable 07/27/20 14:43 Lyme IgG 41 kDa Band Not Reportable 07/27/20 14:43 Lyme IgG 45 kDa Band Not Reportable 07/27/20 14:43 Lyme IgG 58 kDa Band Not Reportable 07/27/20 14:43 Lyme IgG 66 kDa Band Not Reportable 07/27/20 14:43 Lyme IgG 93 kDa Band Not Reportable 07/27/20 14:43 Lyme IgG W Blot Interp Not Reportable 07/27/20 14:43 Lyme IgM Quantitation <0.80 index (0.00-0.79) 07/27/20 14:43 Lyme IgM 23 kDa Band Not Reportable 07/27/20 14:43 Lyme IgM 39 kDa Band Not Reportable 07/27/20 14:43 Lyme IgM 41 kDa Band Not Reportable 07/27/20 14:43 Lyme IgM W Blot Interp Not Reportable 07/27/20 14:43 COVID-19 Source NASOPHARYNGEAL 07/24/20 15:50 COVID-19 (ELLIOT) NOT DETECTED 07/24/20 15:50 Rickettsia IgM Ab 0.30 index (0.00-0.89) 07/27/20 14:43 Blood Type B POSITIVE 07/26/20 14:46 Antibody Screen NEGATIVE 07/26/20 14:46 07/24/20 07/24/20 07/25/20 11:35 19:36 01:15 Troponin I < 0.012 < 0.012 < 0.012 Impressions: Chest/Abdomen CTA 07/24/20 11:06 IMPRESSION: 1. Due to poor contrast bolus, pulmonary arteries are poorly assessed. No central clot detected but embolus in the peripheral branches is not excluded. 2. Mediastinal and hilar adenopathy. This was not seen in 2014. Nonspecific. Consider the possibility of neoplasm to include lymphoma as well as sarcoid. Plan Plan of Treatment: Patient is discharged home in stable condition. He is advised to follow-up with his primary care provider within 1 week. Follow-up with Dr. Regalado within 1 month. Continue full dose Lovenox twice daily for management of DVT. Continue doxycycline 100 mg twice daily. Patient is advised that for RMSF a typical course is 3 to 5 days once symptoms have improved, however, he has been provided a full 21-day course and is instructed to discuss continued antibiotic treatment with his PCP at the follow-up appointment on August 04, 2020. Return to the emergency department as needed for concerning symptoms. Time Spent: Greater than 30 Minutes Stroke Is this a Stroke Patient?: No Acute Heart Failure - Is this a Heart Failure Patient?: No
[2020-08-02 11:46] LABS: A. PHAGOCYTOPHILUM PCR Negative (Negative)
== END 2020-07-28 14:55 | disposition home or self-care (01) | DRG 301 ==
LOC: ER 09:46 → EH 17:55 → 3W 22:14 → 3S 07-26 14:05
PROVIDERS: ADMIT Hospitalist; ATTEND Registered Nurse
DX: I82.433 Acute embolism and thrombosis of popliteal vein, bilateral (principal); I82.452 Acute embolism and thrombosis of left peroneal vein; I82.462 Acute embolism and thrombosis of left calf muscular vein; I95.9 Hypotension, unspecified; D72.829 Elevated white blood cell count, unspecified; R59.1 Generalized enlarged lymph nodes; R23.3 Spontaneous ecchymoses; D64.9 Anemia, unspecified; M54.9 Dorsalgia, unspecified; R60.0 Localized edema; F17.210 Nicotine dependence, cigarettes, uncomplicated; Z11.59 Encounter for screening for other viral diseases
CPT/HCPCS: 36415; 71275; 80048; 80053; 81001; 81241; 82607; 82728; 82746; 83540; 83550; 83615; 83735; 84153; 84439; 84443; 84481; 84484; 85025; 85027; 85045; 85379; 85384; 85597; 85598; 85610; 85613; 85652; 85730; 85732; 86038; 86140; 86146; 86147; 86148; 86617; 86618; 86757; 86849; 86850; 86900; 86901; 87040; 87635; 87798; 93005; 93010; 93306; 96365; 96366; 96375; 99285; C9803; J1100; J1170; J1200; J1644; J2405; J2930; J3010; J3490; J7030; J7120

== ENCOUNTER 2020-08-03 15:41 | Inpatient (IN) | payer BC ==
[2020-08-03] MEDS ORDERED: ACETAMINOPHEN 325 MG TABLET PO ONE (16:56)
--- NOTE | 2020-08-03 16:57 | ER Document Report ---
ED General - General Stated Complaint: SOB/FEVER/LEG SWELLING Primary Care Provider: WANG BARROSO MD [Primary Care Provider] - Follow up as needed Information source: Patient, Dr. Baeza, [facility] Records Notes: Patient is a 55-year-old male sent into the emergency department from his primary care provider's office for further evaluation and treatment. Patient's primary care provider states that the patient has worsening of his lower ex tremity pain and edema and a worsening of rash. Patient has been seen several times over the past month and exact etiology of the patient's complaints are elusive. Patient denies travel history trauma history obvious sick contacts other than prescribed medications patient has had no changes in medication regime. TRAVEL OUTSIDE OF THE [place] IN LAST 30 DAYS: No - HPI Onset: Other Onset/Duration: Gradual, Persistent Quality of pain: Achy, Pressure, Throbbing Severity: Moderate Pain Level: 3 Associated symptoms: Leg swelling. denies: Diarrhea, Nausea, Vomiting Exacerbated by: Standing, Movement, Walking Relieved by: Denies Similar symptoms previously: Yes Recently seen / treated by doctor: Yes - Related Data Allergies/Adverse Reactions: cyclobenzaprine HCl [From Flexeril] Allergy (Severe, Verified 07/24/20 09:54) Hives morphine Allergy (Intermediate, Verified 07/24/20 09:54) Burning rash Past Medical History - General Information source: Patient, Dr. Baeza, [facility] Records - Social History Smoking Status: Unknown if Ever Smoked Chew tobacco use (# tins/day): No Frequency of alcohol use: Rare Drug Abuse: None Lives with: Spouse/Significant other Family History: Malignancy - Throat cancer in brother, colon cancer in mother. No DVT/PE family history Patient has suicidal ideation: No Patient has homicidal ideation: No - Past Medical History Cardiac Medical History: Reports: Hx DVT Denies: Hx Coronary Artery Disease, Hx Heart Attack, Hx Hypertension Pulmonary Medical History: Reports: Hx COPD Denies: Hx Asthma, Hx Bronchitis, Hx Pneumonia Neurological Medical History: Denies: Hx Cerebrovascular Accident, Hx Seizures Musculoskeletal Medical History: Reports Hx Arthritis Psychiatric Medical History: Denies: Hx Depression Past Surgical History: Reports: Other - Removal of lesion on the upper lip. Colonoscopy by Dr. Morales years ago.. Denies: Hx Pacemaker - Immunizations Hx Diphtheria, Pertussis, Tetanus Vaccination: Yes Review of Systems - Review of Systems Notes: REVIEW OF SYSTEMS: CONSTITUTIONAL : Per HPI EENT: Denies eye, ear, throat, or mouth pain or symptoms. Denies nasal or si nus congestion. CARDIOVASCULAR: Denies chest pain. RESPIRATORY: Denies cough, cold, or chest congestion. Denies shortness of breath, difficulty breathing, or wheezing. GASTROINTESTINAL: Denies abdominal pain. Denies nausea, vomiting, or diarrhea. Denies constipation. GENITOURINARY: Denies difficulty urinating, painful urination, burning, frequency, or blood in urine. MUSCULOSKELETAL: Per HPI SKIN: Per HPI HEMATOLOGIC : Denies easy bruising or bleeding. NEUROLOGICAL: Denies altered mental status or loss of consciousness. Denies headache. Denies weakness or paralysis or loss of use of either side. Denies problems with gait or speech. Denies sensory or motor loss. PSYCHIATRIC: Denies suicidal or homicidal ideations 10 Systems are negative unless otherwise specified above Physical Exam - Vital signs Vitals: Temp Pulse Resp BP Pulse Ox 99.9 F 79 16 157/70 H 98 08/03/20 16:21 08/03/20 16:21 08/03/20 16:21 08/03/20 16:21 08/03/20 16:21 - Notes Notes: PHYSICAL EXAMINATION: GENERAL: Patient is a 55-year-old male presenting to the emergency department for secondary to worsening lower extremity pain and generalized weakness HEAD: Atraumatic, normocephalic. EYES: Pupils equal round and reactive to light, extraocular movements intact, sclera anicteric, conjunctiva are normal. ENT: nares patent, oropharynx clear without exudates. Tacky mucous membranes. NECK: Normal range of motion, supple without lymphadenopathy, no appreciable JVD LUNGS: Lungs clear to auscultation bilaterally and equal. No wheezes rales or r honchi. HEART: Regular rate and rhythm without murmurs ABDOMEN: Soft, nontender, normal bowel sounds. No guarding, no rebound. No masses appreciated. EXTREMITIES: Upper extremities full range of motion, lower extremities swollen tender to palpation NEUROLOGICAL: No focal neurological deficits. Moves all extremities spontaneously and on command. SKIN: Multiple patches of erythema in various size and coloration diffusely Course - Re-evaluation Re-evalutation: 08/03/20 20:33 Laboratory studies were ordered at the request of primary care provider and hospitalist. Patient was initially supposed to be a direct admission but due to limited house beds patient is currently in the ER. Patient will be seen by hospitalist. - Vital Signs Vital signs: Temp Pulse Resp BP Pulse Ox 99.0 F 79 16 157/70 H 98 08/03/20 16:50 08/03/20 16:21 08/03/20 16:21 08/03/20 16:21 08/03/20 16:21 - Laboratory Result Diagrams: 08/03/20 17:35 08/03/20 17:35 Laboratory results interpreted by me: 08/03/20 08/03/20 08/03/20 17:35 17:35 17:35 WBC 17.5 H RBC 2.90 L Hgb 9.1 L Hct 26.5 L Plt Count 515 H Lymph % (Auto) 9.9 L Absolute Neuts (auto) 13.8 H Absolute Monos (auto) 1.9 H Seg Neutrophils % 78.7 H APTT 38.5 H D-Dimer 7.32 H Glucose 114 H Direct Bilirubin 0.5 H Alkaline Phosphatase 287 H C-Reactive Protein 219.0 H NT-Pro-B Natriuret Pep Total Protein 6.0 L Albumin 2.9 L 08/03/20 17:35 WBC RBC Hgb Hct Plt Count Lymph % (Auto) Absolute Neuts (auto) Absolute Monos (auto) Seg Neutrophils % APTT D-Dimer Glucose Direct Bilirubin Alkaline Phosphatase C-Reactive Protein NT-Pro-B Natriuret Pep 861 H Total Protein Albumin - EKG Interpretation by Me EKG shows normal: Sinus rhythm Rate: Normal Rhythm: NSR When compared to previous EKG there are: No significant change Discharge - Discharge Clinical Impression: Mediastinal lymphadenopathy, Leg pain, bilateral DVT (deep venous thrombosis) Qualifiers: DVT location: lower extremity Affected thrombotic vein of extremity: unspeci fied vein of extremity Chronicity: chronic Laterality: bilateral Qualified Code(s): I82.503 - Chronic embolism and thrombosis of unspecified deep veins of lower extremity, bilateral Leucocytosis Qualifiers: Leukocytosis type: unspecified Qualified Code(s): D72.829 - Elevated white blood cell count, unspecified Anemia Qualifiers: Anemia type: unspecified type Qualified Code(s): D64.9 - Anemia, unspecified Condition: Stable Disposition: ADMITTED INPATIENT Admitting Provider: Gabriel (Hospitalist) Unit Admitted: Telemetry Referrals: WANG BARROSO MD [Primary Care Provider] - Follow up as needed
[2020-08-03 17:56] LABS: ABSOLUTE EOSINOPHILS # (AUTO) 0.1 10^3/uL (0.0-0.6); ABSOLUTE LYMPHOCYTES (AUTO) 1.7 10^3/uL (0.5-4.7); ABSOLUTE MONOCYTES (AUTO) 1.9 10^3/uL (0.1-1.4); ABSOLUTE NEUT (AUTO) 13.8 10^3/uL (1.7-8.2); BASOPHILS % (AUTO) 0.2 % (0-2); EOSINOPHILS % (AUTO) 0.6 % (0-6); HEMATOCRIT 26.5 % (37.9-51.0); HEMOGLOBIN 9.1 g/dL (13.5-17.0); LYMPHOCYTES % (AUTO) 9.9 % (13-45); MEAN CORPUSCULAR HEMOGLOBIN 31.4 pg (27.0-33.4); MEAN CORPUSCULAR HGB CONC 34.3 g/dL (32.0-36.0); MEAN CORPUSCULAR VOLUME 92 fl (80-97); MONOCYTES % (AUTO) 10.6 % (3-13); PLATELET COUNT 515 10^3/uL (150-450); RED CELL DISTRIBUTION WIDTH 13.2 % (11.5-14.0); SEGMENTED NEUTROPHILS % (AUTO) 78.7 % (42-78); TOTAL CELLS COUNTED % (AUTO) 100 %; WHITE BLOOD COUNT 17.5 10^3/uL (4.0-10.5)
[2020-08-03 18:08] LABS: INTERNATIONAL RATION (INR) 1.06
[2020-08-03 18:09] LABS: PARTIAL THROMBOPLASTIN TIME 38.5 SEC (23.5-35.8)
[2020-08-03 18:15] LABS: ALBUMIN 2.9 g/dL (3.5-5.0); ALKALINE PHOSPHATASE 287 U/L (38-126); ANION GAP 6 (5-19); ASPARTATE AMINO TRANSFERASE 34 U/L (17-59); BILIRUBIN,DIRECT 0.5 mg/dL (0.0-0.4); BILIRUBIN,TOTAL 0.8 mg/dL (0.2-1.3); BLOOD UREA NITROGEN 20 mg/dL (7-20); CALCIUM 8.5 mg/dL (8.4-10.2); CARBON DIOXIDE 29 mmol/L (22-30); CHLORIDE 103 mmol/L (98-107); GLUCOSE 114 mg/dL (75-110); POTASSIUM 4.1 mmol/L (3.6-5.0)
[2020-08-03 18:26] LABS: D-DIMER 7.32 ug/mL (0.00-0.50)
[2020-08-03 18:27] LABS: NT PRO BNP 861 pg/mL (<125)
[2020-08-03] MEDS ORDERED: FENTANYL CITRATE INJ/PF 100 MCG/2 ML AMPUL IV ONE (18:32)
[2020-08-03 18:33] LABS: TROPONIN I < 0.012 ng/mL
--- NOTE | 2020-08-03 19:16 | EKG REPORT ---
SEVERITY:- ABNORMAL ECG - SINUS RHYTHM NONSPECIFIC T ABNORMALITIES, DIFFUSE LEADS : Confirmed by: Alexis Rios MD 03-Aug-2020 19:15:37
[2020-08-03] MEDS: METHYLPREDNISOLONE INJ 40 MG/1 ML SDV IV SCH ×2 (19:53→21:42)
[2020-08-03] MEDS ORDERED: ONDANSETRON HCL INJ/PF 4 MG/2 ML SDV IV ONE (20:12)
[2020-08-03] MEDS ORDERED: MAGNESIUM HYDROXIDE SUSP 30 ML UDCUP PO PRN (20:23)
[2020-08-03] MEDS ORDERED: ALBUTEROL SULFATE HFA (90 MCG/PUFF) 8 GM MDI IH PRN (20:23)
[2020-08-03] MEDS ORDERED: ACETAMINOPHEN 325 MG TABLET PO PRN (20:23)
[2020-08-03] MEDS ORDERED: LOPERAMIDE HCL 2 MG CAPSULE PO PRN (20:48)
[2020-08-03] MEDS ORDERED: PROMETHAZINE HCL INJ 25 MG/1 ML VIAL IV PRN (21:20)
--- NOTE | 2020-08-03 21:57 | PDOC H&P ---
History of Present Illness Admission Date/PCP: 08/03/20 20:35 WANG BARROSO MD Patient complains of: Edema, rash and diffuse musculoskeletal pain. Also reports night sweats History of Present Illness: TRINITY MARION JR is a 55 year old male who was recently discharged on July 30. He presented with edema, painful extremities and rash. Interestingly he r eceived a dose of Solu-Medrol in the emergency department and felt better. He was discharged with a presumptive diagnosis of [place] spotted fever. The IgG was right at the cutoff and the IgM was negative so this makes [place] spotted fever unlikely. He states that he felt good for about a day after discharge. He then began to have night sweats and feeling feverish. The pain increased significantly. He has pain in the central back area as well as all of his extremities. He still has edema in both lower extremities. The rash has gone to a macular type rash with vasculitic-like appearance. His C-reactive protein is markedly elevated. 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 He has been on Lovenox at home. As he has been feeling much worse, he visited with his primary care provider. Because of his current status we agreed to admit the patient for ongoing work-up. Past Medical History Cardiac Medical History: Reports: DVT Denies: Coronary Artery Disease, Myocardial Infarction, Hypertension Pulmonary Medical History: Reports: Chronic Obstructive Pulmonary Disease (COPD) Denies: Asthma, Bronchitis, Pneumonia Neurological Medical History: Denies: Seizures Musculoskeltal Medical History: Reports: Arthritis Skin Medical History: Reports: Other - Vasculitis Psychiatric Medical History: Reports: Tobacco Dependency Denies: Depression Hematology: Denies: Anemia Infectious Medical History: Denies: Hepatitis B, Hepatitis C Past Surgical History Past Surgical History: Reports: Other - Removal of lesion on the upper lip. Colonoscopy by Dr. Morales years ago. Denies: Pacemaker Social History Information Source: Patient, [facility] Records Lives with: Spouse/Significant other Smoking Status: Former Smoker - Stopped several weeks ago. Was smoking 1 to 2 packs of cigarettes daily. Electronic Cigarette use?: No Frequency of Alcohol Use: None Hx Recreational Drug Use: No Drugs: None Hx Prescription Drug Abuse: No - Advance Directive Resuscitation Status: Full Code Surrogate healthcare decision maker:: The patient's is the designated decision maker Family History Family History: Malignancy - Throat cancer in brother, colon cancer in mother. No DVT/PE family history Parental Family History Reviewed: Yes Children Family History Reviewed: Yes Sibling(s) Family History Reviewed.: Yes Medication/Allergy Home Medications: Oxycodone HCl/Acetaminophen [Oxycodone-Acetaminophen 10-325] 1 each PO Q8HP PRN 07/21/20 Tizanidine HCl [Zanaflex 4 mg Tablet] 4 mg PO TIDP PRN 07/21/20 Diazepam [Valium 2 mg Tablet] 2 mg PO Q6HP PRN 07/25/20 Acetaminophen [Tylenol 325 mg Tablet] 650 mg PO Q4HP PRN tablet 07/28/20 Diazepam [Valium 5 mg Tablet] 5 mg PO TIDP PRN #10 tablet 07/28/20 Doxycycline Hyclate [Vibramycin 100 mg Tablet] 100 mg PO Q12 #40 tablet 07/28/20 Enoxaparin Sodium [Lovenox Inj 80 mg/0.8 ml Disp.syrin] 80 mg SUBCUT Q12 #20 disp.syrin 07/28/20 Nicotine [Nicoderm 14 mg/24 Hr Transdermal Patch] 1 each TD QHS #30 patch.td24 07/28/20 Oxycodone HCl/Acetaminophen [Percocet 5-325 mg Tablet] 2 tab PO Q8HP PRN #20 tab let 07/28/20 Allergies/Adverse Reactions: cyclobenzaprine HCl [From Flexeril] Allergy (Severe, Verified 07/24/20 09:54) Hives morphine Allergy (Intermediate, Verified 07/24/20 09:54) Burning rash Review of Systems All systems: reviewed and no additional remarkable complaints except as stated Constitutional: PRESENT: anorexia, night sweats Cardiovascular: PRESENT: edema Gastrointestinal: PRESENT: diarrhea, nausea, vomiting Musculoskeletal: PRESENT: back pain, other - Polyarthralgias Integumentary: PRESENT: rash Psychiatric: PRESENT: depression Physical Exam Vital Signs: Temp Pulse Resp BP Pulse Ox 99.0 F 79 16 157/70 H 98 08/03/20 16:50 08/03/20 16:21 08/03/20 16:21 08/03/20 16:21 08/03/20 16:21 Intake & Output 08/02/20 08/03/20 08/04/20 06:59 06:59 06:59 Weight 70.307 kg General appearance: PRESENT: cooperative, severe distress, well-developed Head exam: PRESENT: atraumatic, normocephalic Eye exam: PRESENT: conjunctiva pale, EOMI. ABSENT: scleral icterus Ear exam: PRESENT: normal external ear exam. ABSENT: bleeding, drainage Mouth exam: PRESENT: dry mucosa, tongue midline Teeth exam: PRESENT: other - Dentures Neck exam: ABSENT: carotid bruit, JVD, thyromegaly Respiratory exam: PRESENT: clear to auscultation josh, symmetrical, unlabored. ABSENT: rales, rhonchi, tachypnea, wheezes Cardiovascular exam: PRESENT: RRR, +S1, +S2, systolic murmur - 2/6. ABSENT: bradycardia, diastolic murmur, irregular rhythm, tachycardia GI/Abdominal exam: PRESENT: normal bowel sounds, soft. ABSENT: distended, guar ding, tenderness Rectal exam: PRESENT: deferred Gentrourinary exam: ABSENT: indwelling catheter Extremities exam: PRESENT: pedal edema, tenderness, +1 edema Musculoskeletal exam: PRESENT: ambulatory, normal inspection. ABSENT: deformity, dislocation Neurological exam: PRESENT: alert, awake, oriented to person, oriented to place, oriented to time, oriented to situation, CN II-XII grossly intact. ABSENT: altered Psychiatric exam: PRESENT: appropriate affect - Affect reflects his current clinical state of significant pain with nausea.. ABSENT: agitated, anxious Focused psych exam: ABSENT: delusional, paranoid, restlessness Skin exam: PRESENT: rash - The petechial rash on his feet has now changed to discolored macules with irregular margins. Lesions are no longer erythematous but rather ecchymotic in appearance. Results Laboratory Results: 08/03/20 17:35 08/03/20 17:35 08/03/20 08/03/20 08/03/20 17:35 17:35 17:57 WBC 17.5 H RBC 2.90 L Hgb 9.1 L Hct 26.5 L MCV 92 MCH 31.4 MCHC 34.3 RDW 13.2 Plt Count 515 H Seg Neutrophils % 78.7 H Sodium 137.5 Potassium 4.1 Chloride 103 Carbon Dioxide 29 Anion Gap 6 BUN 20 Creatinine 0.83 Est GFR ( Amer) > 60 Glucose 114 H Lactic Acid 0.7 Calcium 8.5 Ferritin 352.00 Total Bilirubin 0.8 AST 34 Alkaline Phosphatase 287 H C-Reactive Protein 219.0 H Total Protein 6.0 L Albumin 2.9 L 08/03/20 08/03/20 17:35 17:55 Creatine Kinase 61 Troponin I < 0.012 NT-Pro-B Natriuret Pep 861 H Assessment and Plan - Diagnosis (1) Night sweats Is this a current diagnosis for this admission?: Yes Plan: Night sweats are new for this patient. The diagnosis of [place] spotted fever is marginal at best. Patient declined despite doxycycline therapy. This may still be a vasculitis. The C-reactive protein is still greater than 200. (2) Leucocytosis Qualifiers: Leukocytosis type: unspecified Qualified Code(s): D72.829 - Elevated white blood cell count, unspecified Is this a current diagnosis for this admission?: Yes Plan: White blood cell count is 17,000. We will continue to monitor. I will be giving the patient systemic steroids and I expect the white blood cell count may go higher before it goes lower. The patient is being retested for Covid-19. I am going to hold antibiotic therapy for today and recheck white blood cell count tomorrow. (3) Vasculitis Is this a current diagnosis for this admission?: Yes Plan: There is a high probability that this could be a vasculitis. Systemic steroids were initiated. Studies not previously ordered such as complement studies, antineutrophil cytoplasmic antibody titers as well as hepatitis panel will be ordered. I also ordered a serum protein electrophoresis. He may be best served with a biopsy. I will likely discuss with a tertiary care center and see if transport to a higher level of care with more specialty availability would be appropriate. (4) Mediastinal lymphadenopathy Is this a current diagnosis for this admission?: Yes Plan: Noted on prior CT scan. We may want to repeat the CT scan and reassess the lymphadenopathy. For now we will just observe. (5) Leg pain, bilateral Is this a current diagnosis for this admission?: Yes Plan: Still with significant pain and edema. He is allergic to morphine. He states that the Percocet tablets upset his stomach and are not effective. He states that the fentanyl as well as the Dilaudid he received last admission are ineffective. I have ordered intravenous Toradol because if this is inflammatory then an anti-inflammatory medication may help more so than narcotic analgesia. (6) Back pain without radiation Is this a current diagnosis for this admission?: Yes (7) Anemia Qualifiers: Anemia type: unspecified type Qualified Code(s): D64.9 - Anemia, unspecified Is this a current diagnosis for this admission?: Yes Plan: Hemoglobin is only 9.1. It is lower today than during his previous admission. We will check for fecal occult blood. (8) Edema Qualifiers: Edema type: unspecified Qualified Code(s): R60.9 - Edema, unspecified Is this a current diagnosis for this admission?: Yes Plan: Bilateral lower extremity edema right greater than left. He does have a recent history of DVTs and this could be partly the reason. I also believe that if there is an underlying vasculitis this could be contributing. (9) Person under investigation for COVID-19 Is this a current diagnosis for this admission?: Yes Plan: He was tested for COVID several weeks ago. With his new constellation of symptoms and overall unwellness we are checking for Covid-19 again. (10) Diarrhea Qualifiers: Diarrhea type: unspecified type Qualified Code(s): R19.7 - Diarrhea, unspecified Is this a current diagnosis for this admission?: Yes Plan: We will check stool cultures as well as stool for white blood cells. I have also ordered fecal occult blood testing. - Time Time Spent with patient: 35 or more minutes Medications reviewed and adjusted accordingly: Yes Anticipated Discharge Disposition: Unknown Anticipated Discharge Timeframe: Unknown - Inpatient Certification Based on my medical assessment, after consideration of the patient's comorbidities, presenting symptoms, or acuity I expect that the services needed warrant INPATIENT care.: Yes I certify that my determination is in accordance with my understanding of Medicare's requirements for reasonable and necessary INPATIENT services [42 CFR 412.3e].: Yes Medical Necessity: Failure to Improve With Outpatient Therapy, Need For IV Fluids, Need For Continuous Telemetry Monitoring, Need for Pain Control Post Hospital Care: D/C or Transfer Summary
[2020-08-03] MEDS: KETOROLAC TROMETHAMINE INJ/PF 30 MG/1 ML SDV IV PRN (22:06)
[2020-08-03] MEDS: ENOXAPARIN SODIUM INJ 80 MG/0.8 ML DISP.SYRIN SUBCUT SCH (22:08)
[2020-08-04] MEDS: KETOROLAC TROMETHAMINE INJ/PF 30 MG/1 ML SDV IV PRN ×2 (04:16→23:19)
[2020-08-04] MEDS: RINGERS SOLUTION,LACTATED 1,000 ML IV PRN ×2 (04:34→17:18)
[2020-08-04] MEDS: PANTOPRAZOLE SODIUM 40 MG TABLET.DR PO SCH ×2 (06:53→17:18)
[2020-08-04] MEDS: METHYLPREDNISOLONE INJ 40 MG/1 ML SDV IV SCH (06:53)
[2020-08-04] MEDS: ENOXAPARIN SODIUM INJ 80 MG/0.8 ML DISP.SYRIN SUBCUT SCH ×2 (09:37→22:00)
[2020-08-04] MEDS: LIDOCAINE 5% (700 MG) TRANSDERMAL ADH..PATCH TP SCH (09:43)
--- NOTE | 2020-08-04 09:57 | RADIOLOGY REPORT (SQ) ---
EXAM DESCRIPTION: CHEST SINGLE VIEW IMAGES COMPLETED DATE/TIME: 08/04/2020 7:01 am REASON FOR STUDY: Dyspnea COMPARISON: 07/21/2020 EXAM PARAMETERS: NUMBER OF VIEWS: One view. TECHNIQUE: Single frontal radiographic view of the chest acquired. RADIATION DOSE: NA LIMITATIONS: None. FINDINGS: LUNGS AND PLEURA: No opacities, masses or pneumothorax. No pleural effusion. MEDIASTINUM AND HILAR STRUCTURES: No masses. Contour normal. HEART AND VASCULAR STRUCTURES: Heart normal in size. Normal vasculature. BONES: No acute findings. HARDWARE: None in the chest. OTHER: No other significant finding. IMPRESSION: NO ACUTE RADIOGRAPHIC FINDING IN THE CHEST. TECHNICAL DOCUMENTATION: JOB ID: [id number] 2010 [employer] (formerly [employer])- All Rights Reserved Reading location - IP/workstation name: [email or web address]
[2020-08-04] MEDS: FENTANYL CITRATE INJ/PF 100 MCG/2 ML AMPUL IV PRN ×2 (13:06→20:46)
[2020-08-04] MEDS: METHYLPREDNISOLONE INJ 125 MG/2 ML SDV IV SCH ×2 (13:06→22:00)
[2020-08-04 14:48] LABS: AMORPHOUS SEDIMENT,URINE TRACE /HPF; APPEARANCE,URINE TURBID; BILIRUBIN,URINE NEGATIVE (NEGATIVE); COLOR,URINE YELLOW; GLUCOSE, URINE NEGATIVE (NEGATIVE); KETONES,URINE NEGATIVE (NEGATIVE); LEUKOCYTE ESTERASE,URINE TRACE (NEGATIVE); NITRITE,URINE NEGATIVE (NEGATIVE); PROTEIN,URINE 100 mg/dL (NEGATIVE); URINE SPECIFIC GRAVITY 1.024
--- NOTE | 2020-08-04 20:47 | PDOC PROGRESS REPORT ---
Subjective Progress Note for:: 08/04/20 Subjective:: The patient is clearly feeling better. He is still having pain but less so. The rash continues to persist. Still tenderness and edema. Reason For Visit: FEVERS,DIFFUSE MUSCULOSKELETAL PAIN,EDEMA,RASH, Physical Exam Vital Signs: Temp Pulse Resp BP Pulse Ox 97.7 F 80 18 136/65 H 95 08/04/20 04:49 08/03/20 21:00 08/04/20 16:01 08/04/20 16:00 08/04/20 16:01 Intake & Output 08/03/20 08/04/20 08/05/20 06:59 06:59 06:59 Intake Total 1000 Balance 1000 Weight 70.307 kg General appearance: PRESENT: cooperative, mild distress Respiratory exam: PRESENT: symmetrical, unlabored. ABSENT: rales, rhonchi, tachypnea, wheezes Cardiovascular exam: PRESENT: RRR, +S1, +S2 GI/Abdominal exam: PRESENT: normal bowel sounds, soft. ABSENT: tenderness Rectal exam: PRESENT: deferred Gentrourinary exam: ABSENT: indwelling catheter Musculoskeletal exam: PRESENT: tenderness - Especially ankles lower legs Neurological exam: PRESENT: alert, awake, oriented to person, oriented to place, oriented to situation Psychiatric exam: PRESENT: anxious. ABSENT: agitated Skin exam: PRESENT: rash - Remains present. Examined yesterday. VINAYAK stockings in place today. Results Laboratory Results: 08/03/20 17:35 08/03/20 17:35 08/04/20 04:40 Urine Color YELLOW Urine Appearance TURBID Urine pH 5.0 Ur Specific [place] 1.024 Urine Protein 100 H Urine Glucose (UA) NEGATIVE Urine Ketones NEGATIVE Urine Blood LARGE H Urine Nitrite NEGATIVE Ur Leukocyte Esterase TRACE H Urine WBC (Auto) 19 Urine RBC (Auto) 15 08/03/20 08/03/20 17:35 17:55 Creatine Kinase 61 Troponin I < 0.012 NT-Pro-B Natriuret Pep 861 H Impressions: Chest X-Ray 08/04/20 07:00 IMPRESSION: NO ACUTE RADIOGRAPHIC FINDING IN THE CHEST. Assessment and Plan - Diagnosis (1) Night sweats Is this a current diagnosis for this admission?: Yes Plan: With the patient's on the phone we reviewed extensively the differential diagnosis which is broad. Night sweats appear to be in better. (2) Leucocytosis Qualifiers: Leukocytosis type: unspecified Qualified Code(s): D72.829 - Elevated white blood cell count, unspecified Is this a current diagnosis for this admission?: Yes Plan: White blood cell count 17 on admission. Repeat CBC ordered for the morning. (3) Vasculitis Is this a current diagnosis for this admission?: Yes Plan: We reviewed why I feel strongly that this is vasculitis. The patient always improves with steroids. Without steroids and antibiotics he declined rapidly last week. We reviewed the previous studies and it is not likely [place] spotted fever as the IgM was negative and the IgG was marginal. If it was a hematologic malignancy on expect the CBC to look differently. His family history of malignancy is with solid masses and not lymphoma, leukemia etc. currently on a milligrams of Solu-Medrol IV every 8 hours. (4) Mediastinal lymphadenopathy Is this a current diagnosis for this admission?: Yes Plan: Reviewed the lymphadenopathy. Still curious as to the etiology. Once again the differential diagnosis is broad. Malignancy is not impossible but based on the discussions noted above I think malignancy is much less likely (5) Leg pain, bilateral Is this a current diagnosis for this admission?: Yes Plan: Improving with steroids (6) Back pain without radiation Is this a current diagnosis for this admission?: Yes Plan: Still unsure of the etiology. IV fentanyl helps. (7) Anemia Qualifiers: Anemia type: unspecified type Qualified Code(s): D64.9 - Anemia, unspecified Is this a current diagnosis for this admission?: Yes Plan: Hemoglobin was 9 yesterday. Repeat blood work ordered for tomorrow. (8) Edema Qualifiers: Edema type: unspecified Qualified Code(s): R60.9 - Edema, unspecified Is this a current diagnosis for this admission?: Yes Plan: Still present but possibly slightly improved (9) Person under investigation for COVID-19 Is this a current diagnosis for this admission?: Yes Plan: Despite having simple features I do not expect a positive COVID test. (10) Diarrhea Qualifiers: Diarrhea type: unspecified type Qualified Code(s): R19.7 - Diarrhea, unspecified Is this a current diagnosis for this admission?: Yes Plan: Stool studies pending. Bowels seem improved. (11) Proteinuria Qualifiers: Proteinuria type: unspecified Qualified Code(s): R80.9 - Proteinuria, unspecified Is this a current diagnosis for this admission?: Yes Plan: The patient reports that his urine is darkly colored. Creatinine kinase was normal. Urine dipstick reflected protein and I have ordered a 24-hour urine for protein, creatinine and urine protein electrophoresis. - Time Time Spent with patient: 25-34 minutes - The patient's was on the phone due to visitation restrictions. We had a lengthy discussion (30 minutes) more than half of which was reviewing lab results and discussing differential diagnoses and the treatment plan. Medications reviewed and adjusted accordingly: Yes Anticipated Discharge Disposition: Tertiary Anticipated Discharge Timeframe: within 48 hours
[2020-08-05] MEDS: FENTANYL CITRATE INJ/PF 100 MCG/2 ML AMPUL IV PRN (00:49)
[2020-08-05] MEDS: RINGERS SOLUTION,LACTATED 1,000 ML IV PRN ×2 (04:16→14:48)
[2020-08-05] MEDS: PANTOPRAZOLE SODIUM 40 MG TABLET.DR PO SCH ×2 (05:30→17:19)
[2020-08-05] MEDS: METHYLPREDNISOLONE INJ 125 MG/2 ML SDV IV SCH ×3 (05:32→21:41)
[2020-08-05] MEDS: OXYCODONE-ACETAMINOPHEN 5-325 MG TABLET PO PRN ×3 (06:29→21:50)
[2020-08-05 09:58] LABS: HEMATOCRIT 27.4 % (37.9-51.0); HEMOGLOBIN 9.3 g/dL (13.5-17.0); MEAN CORPUSCULAR HEMOGLOBIN 31.1 pg (27.0-33.4); MEAN CORPUSCULAR VOLUME 92 fl (80-97); PLATELET COUNT 648 10^3/uL (150-450); RED BLOOD COUNT 2.99 10^6/uL (4.35-5.55); RED CELL DISTRIBUTION WIDTH 13.6 % (11.5-14.0)
[2020-08-05 10:42] LABS: WHITE BLOOD COUNT 37.4 10^3/uL (4.0-10.5)
[2020-08-05] MEDS: ENOXAPARIN SODIUM INJ 80 MG/0.8 ML DISP.SYRIN SUBCUT SCH ×2 (10:52→21:40)
[2020-08-05] MEDS: LIDOCAINE 5% (700 MG) TRANSDERMAL ADH..PATCH TP SCH ×2 (11:20→11:22)
--- NOTE | 2020-08-05 15:25 | PDOC PROGRESS REPORT ---
Subjective Progress Note for:: 08/05/20 Subjective:: Patient is feeling slightly better today. Still with diffuse joint and muscle pain. His white blood cell count is 37,400. Hemoglobin is stable at 9.3. There is still edema in his lower extremities as well. Reason For Visit: FEVERS,DIFFUSE MUSCULOSKELETAL PAIN,EDEMA,RASH, Physical Exam Vital Signs: Temp Pulse Resp BP Pulse Ox 97.8 F 74 17 125/51 L 95 08/05/20 08:23 08/05/20 08:23 08/05/20 08:23 08/05/20 08:23 08/05/20 08:23 Intake & Output 08/04/20 08/05/20 08/06/20 06:59 06:59 06:59 Intake Total 2000 1000 Output Total 325 Balance 1675 1000 Weight 70.307 kg 73.5 kg General appearance: PRESENT: cooperative, mild distress, well-developed Head exam: PRESENT: atraumatic, normocephalic Ear exam: PRESENT: normal external ear exam. ABSENT: bleeding, drainage Mouth exam: PRESENT: moist, tongue midline Respiratory exam: PRESENT: clear to auscultation josh, symmetrical, unlabored. ABSENT: rales, rhonchi, tachypnea, wheezes Cardiovascular exam: PRESENT: RRR, +S1, +S2. ABSENT: bradycardia, diastolic murmur, irregular rhythm, systolic murmur, tachycardia GI/Abdominal exam: PRESENT: normal bowel sounds, soft. ABSENT: distended, guarding, tenderness Rectal exam: PRESENT: deferred Gentrourinary exam: ABSENT: indwelling catheter Extremities exam: PRESENT: pedal edema, +1 edema Musculoskeletal exam: PRESENT: ambulatory. ABSENT: deformity, dislocation Neurological exam: PRESENT: alert, awake, oriented to person, oriented to place, oriented to time, oriented to situation, CN II-XII grossly intact. ABSENT: altered, motor sensory deficit Psychiatric exam: PRESENT: appropriate affect - Affect reflects his discomfort. ABSENT: agitated, anxious Focused psych exam: ABSENT: delusional, paranoid, restlessness Skin exam: PRESENT: other - The lesions on his legs and ankles are fading. They are no longer erythematous. They are slightly pigmented. No open areas noted. Results Laboratory Results: 08/05/20 08:33 08/03/20 17:35 08/04/20 08/05/20 08/05/20 04:40 08:33 11:31 WBC 37.4 H* D RBC 2.99 L Hgb 9.3 L Hct 27.4 L MCV 92 MCH 31.1 MCHC 34.0 RDW 13.6 Plt Count 648 H Urine Color YELLOW Urine Appearance TURBID Urine pH 5.0 Ur Specific [place] 1.024 Urine Protein 100 H Urine Glucose (UA) NEGATIVE Urine Ketones NEGATIVE Urine Blood LARGE H Urine Nitrite NEGATIVE Ur Leukocyte Esterase TRACE H Urine WBC (Auto) 19 Urine RBC (Auto) 15 Stool Occult Blood Stool for White Cells NO WBCs SEEN 08/05/20 11:31 WBC RBC Hgb Hct MCV MCH MCHC RDW Plt Count Urine Color Urine Appearance Urine pH Ur Specific [place] Urine Protein Urine Glucose (UA) Urine Ketones Urine Blood Urine Nitrite Ur Leukocyte Esterase Urine WBC (Auto) Urine RBC (Auto) Stool Occult Blood NEGATIVE Stool for White Cells 08/03/20 08/03/20 17:35 17:55 Creatine Kinase 61 Troponin I < 0.012 NT-Pro-B Natriuret Pep 861 H Impressions: Chest X-Ray 08/04/20 07:00 IMPRESSION: NO ACUTE RADIOGRAPHIC FINDING IN THE CHEST. Assessment and Plan - Diagnosis (1) Vasculitis Is this a current diagnosis for this admission?: Yes Plan: I am thoroughly convinced that this is a vasculitis. Multiple studies have been ordered. Continue steroids at Solu-Medrol 80 mg every 8 hours for the time being. Consider initiating a taper. (2) Leucocytosis Qualifiers: Leukocytosis type: unspecified Qualified Code(s): D72.829 - Elevated white blood cell count, unspecified Is this a current diagnosis for this admission?: Yes Plan: White blood cell count has jumped quite a bit. This could be due to the systemic steroids. Will monitor closely. Other than the vasculitis there is no other obvious source of infection. (3) Mediastinal lymphadenopathy Is this a current diagnosis for this admission?: Yes Plan: Still unsure of the exact etiology. Will focus on vasculitis for the time being. (4) Leg pain, bilateral Is this a current diagnosis for this admission?: Yes Plan: Likely from the vasculitis. Continue pain management. Encourage out of bed. (5) Back pain without radiation Is this a current diagnosis for this admission?: Yes Plan: Still unsure of the etiology. IV fentanyl helps. (6) Anemia Qualifiers: Anemia type: unspecified type Qualified Code(s): D64.9 - Anemia, unspecified Is this a current diagnosis for this admission?: Yes Plan: Hemoglobin was 9.3 today. Anemia is stable at this time. (7) Edema Qualifiers: Edema type: unspecified Qualified Code(s): R60.9 - Edema, unspecified Is this a current diagnosis for this admission?: Yes Plan: The patient has edema prior to initiating the steroid therapy. I feel that the steroid therapy will make it worse. Will monitor closely. This should improve as we initiates taper of the Solu-Medrol. (8) Diarrhea Qualifiers: Diarrhea type: unspecified type Qualified Code(s): R19.7 - Diarrhea, unspecified Is this a current diagnosis for this admission?: Yes Plan: He has not had a bowel movement in several days and so the diarrhea clearly has stopped. The fecal occult blood test was negative. In addition there were no white blood cells in his stool. (9) Proteinuria Qualifiers: Proteinuria type: unspecified Qualified Code(s): R80.9 - Proteinuria, unspecified Is this a current diagnosis for this admission?: Yes Plan: Currently collecting a 24-hour urine specimen for analysis. (10) Night sweats Is this a current diagnosis for this admission?: Yes Plan: No further episodes of night sweats. (11) Person under investigation for COVID-19 Is this a current diagnosis for this admission?: Yes Plan: COVID test was negative. No more isolation. - Time Time Spent with patient: 15-24 minutes Medications reviewed and adjusted accordingly: Yes Anticipated Discharge Disposition: Home with Home Health Anticipated Discharge Timeframe: Unknown
[2020-08-05 18:22] LABS: A/G RATIO. 0.6 (0.7-1.7); ALBUMIN 3 2.1 g/dL (2.9-4.4); ALPHA-1-GLOBULIN 0.6 g/dL (0.0-0.4); COMPLEMENT C4 34 mg/dL (14-44); GAMMA GLOBULINS 0.8 g/dL (0.4-1.8); HEPATITS B SURFACE ANTIGEN Negative (Negative); IMMUNOGLOBULIN A 252 mg/dL (90-386); IMMUNOGLOBULIN G 985 mg/dL (603-1613); IMMUNOGLOBULIN M 61 mg/dL (20-172); MONOCLONAL-SPIKE Not Observed g/dL (Not Observ); PROTEIN TOTAL SERUM 5.7 g/dL (6.0-8.5)
[2020-08-05 18:27] LABS: APPEARANCE,URINE SLIGHTLY-CLOUDY; BILIRUBIN,URINE NEGATIVE (NEGATIVE); COLOR,URINE YELLOW; GLUCOSE, URINE NEGATIVE (NEGATIVE); KETONES,URINE NEGATIVE (NEGATIVE); LEUKOCYTE ESTERASE,URINE TRACE (NEGATIVE); NITRITE,URINE NEGATIVE (NEGATIVE); PROTEIN,URINE 100 mg/dL (NEGATIVE); URINE SPECIFIC GRAVITY 1.026
[2020-08-05 18:43] LABS: COMPLEMENT C3 215 mg/dL (82-167)
[2020-08-05 18:47] LABS: HEPATITIS C VIRUS ANTIBODY <0.1 s/co ratio (0.0-0.9)
[2020-08-06] MEDS: RINGERS SOLUTION,LACTATED 1,000 ML IV PRN ×3 (01:23→21:46)
[2020-08-06 02:37] LABS: URINE CREATININE 133.1 mg/dL (22-328); URINE PROTEIN 37.6 mg/dL (<12)
[2020-08-06 02:39] LABS: 24 HOUR URINE PROTEIN RESULT 372 mg/day (42-225)
[2020-08-06] MEDS: OXYCODONE-ACETAMINOPHEN 5-325 MG TABLET PO PRN ×4 (04:29→22:20)
[2020-08-06] MEDS: PANTOPRAZOLE SODIUM 40 MG TABLET.DR PO SCH ×2 (06:00→17:08)
[2020-08-06] MEDS: METHYLPREDNISOLONE INJ 125 MG/2 ML SDV IV SCH ×3 (06:01→21:44)
[2020-08-06 06:52] LABS: MEAN CORPUSCULAR HEMOGLOBIN 30.5 pg (27.0-33.4); MEAN CORPUSCULAR HGB CONC 33.3 g/dL (32.0-36.0); MEAN CORPUSCULAR VOLUME 91 fl (80-97); PLATELET COUNT 623 10^3/uL (150-450); RED BLOOD COUNT 2.62 10^6/uL (4.35-5.55); RED CELL DISTRIBUTION WIDTH 13.7 % (11.5-14.0); WHITE BLOOD COUNT 29.3 10^3/uL (4.0-10.5)
[2020-08-06 07:07] LABS: ANION GAP 5 (5-19); BLOOD UREA NITROGEN 35 mg/dL (7-20); C-REACTIVE PROTEIN 72.3 mg/L (<10.0); CALCIUM 8.5 mg/dL (8.4-10.2); CARBON DIOXIDE 28 mmol/L (22-30); CHLORIDE 106 mmol/L (98-107); GLUCOSE 119 mg/dL (75-110); POTASSIUM 4.9 mmol/L (3.6-5.0)
[2020-08-06 07:16] LABS: ABSOLUTE LYMPHOCYTES# (MANUAL) 0.9 10^3/uL (0.5-4.7); ABSOLUTE MONOCYTES # (MANUAL) 1.8 10^3/uL (0.1-1.4); BASOPHILS % (MANUAL) 0 % (0-2); EOSINOPHILS % (MANUAL) 0 % (0-6); LYMPHOCYTES % (MANUAL) 3 % (13-45); MONOCYTES % (MANUAL) 6 % (3-13); SEGMENTED NEUTROPHILS % (MAN) 91 % (42-78); TOTAL CELLS COUNTED 100
[2020-08-06 07:17] LABS: HYPERSEGMENTED NEUTROPHILS PRESENT; PLATELET COMMENT INCREASED
[2020-08-06 07:18] LABS: TOXIC VACUOLATION PRESENT
[2020-08-06 07:20] LABS: SCHISTOCYTES SLIGHT
[2020-08-06 07:23] LABS: OVALOCYTES SLIGHT
[2020-08-06 07:24] LABS: POLYCHROMASIA SLIGHT
[2020-08-06] MEDS: LIDOCAINE 5% (700 MG) TRANSDERMAL ADH..PATCH TP SCH (09:42)
[2020-08-06] MEDS: ENOXAPARIN SODIUM INJ 80 MG/0.8 ML DISP.SYRIN SUBCUT SCH ×2 (09:58→21:43)
--- NOTE | 2020-08-06 13:43 | PDOC PROGRESS REPORT ---
Subjective Progress Note for:: 08/06/20 Subjective:: He actually looks much better today. Nursing stated that he was up walking around. He still requires pain medication. Reason For Visit: FEVERS,DIFFUSE MUSCULOSKELETAL PAIN,EDEMA,RASH, Physical Exam Vital Signs: Temp Pulse Resp BP Pulse Ox 97.6 F 60 16 139/65 H 98 08/06/20 11:28 08/06/20 11:28 08/06/20 11:28 08/06/20 11:28 08/06/20 11:28 Intake & Output 08/05/20 08/06/20 08/07/20 06:59 06:59 06:59 Intake Total 1999 1999 999 Output Total 325 425 Balance 1675 1575 1000 Weight 73.5 kg 76 kg General appearance: PRESENT: no acute distress, cooperative, well-developed Head exam: PRESENT: atraumatic, normocephalic Ear exam: PRESENT: normal external ear exam. ABSENT: bleeding, drainage Mouth exam: PRESENT: moist, tongue midline Respiratory exam: PRESENT: clear to auscultation josh, symmetrical, unlabored. ABSENT: rales, rhonchi, tachypnea, wheezes Cardiovascular exam: PRESENT: RRR, +S1, +S2. ABSENT: bradycardia, diastolic murmur, irregular rhythm, systolic murmur GI/Abdominal exam: PRESENT: normal bowel sounds, soft. ABSENT: tenderness Rectal exam: PRESENT: deferred Gentrourinary exam: ABSENT: indwelling catheter Extremities exam: PRESENT: +1 edema Musculoskeletal exam: PRESENT: ambulatory, full ROM. ABSENT: deformity, dislocation Psychiatric exam: PRESENT: appropriate affect. ABSENT: agitated, anxious Focused psych exam: ABSENT: delusional, paranoid, restlessness Skin exam: PRESENT: rash - The rash seems to be fading somewhat on a daily basis. Definitely related to vasculitis. Continue current regimen. Results Laboratory Results: 08/06/20 06:33 08/06/20 06:33 08/04/20 08/05/20 08/06/20 07:10 17:38 01:00 WBC RBC Hgb Hct MCV MCH MCHC RDW Plt Count Seg Neutrophils % Sodium Potassium Chloride Carbon Dioxide Anion Gap BUN Creatinine Est GFR ( Amer) Glucose Calcium Magnesium C-Reactive Protein Total Protein 5.7 L Urine Color YELLOW Urine Appearance SLIGHTLY-CLOUDY Urine pH 5.0 Ur Specific [place] 1.026 Urine Protein 100 H Urine Glucose (UA) NEGATIVE Urine Ketones NEGATIVE Urine Blood MODERATE H Urine Nitrite NEGATIVE Ur Leukocyte Esterase TRACE H Urine WBC (Auto) 20 Urine RBC (Auto) 16 Ur 24 Hour Volume 990 Ur Total Protein 24 Hr 372 H 08/06/20 08/06/20 06:33 06:33 WBC 29.3 H RBC 2.62 L Hgb 8.0 L Hct 24.0 L MCV 91 MCH 30.5 MCHC 33.3 RDW 13.7 Plt Count 623 H Seg Neutrophils % Not Reportable Sodium 139.4 Potassium 4.9 Chloride 106 Carbon Dioxide 28 Anion Gap 5 BUN 35 H Creatinine 0.73 Est GFR ( Amer) > 60 Glucose 119 H Calcium 8.5 Magnesium 2.6 H C-Reactive Protein 72.3 H Total Protein Urine Color Urine Appearance Urine pH Ur Specific [place] Urine Protein Urine Glucose (UA) Urine Ketones Urine Blood Urine Nitrite Ur Leukocyte Esterase Urine WBC (Auto) Urine RBC (Auto) Ur 24 Hour Volume Ur Total Protein 24 Hr 08/03/20 08/03/20 17:35 17:55 Creatine Kinase 61 Troponin I < 0.012 NT-Pro-B Natriuret Pep 861 H Impressions: Chest X-Ray 08/04/20 07:00 IMPRESSION: NO ACUTE RADIOGRAPHIC FINDING IN THE CHEST. Assessment and Plan - Diagnosis (1) Leucocytosis Qualifiers: Leukocytosis type: unspecified Qualified Code(s): D72.829 - Elevated white blood cell count, unspecified Is this a current diagnosis for this admission?: Yes Plan: White blood cell count (2) Vasculitis Is this a current diagnosis for this admission?: Yes Plan: So far pertinent positives include a C-reactive protein level that went from 219 down to 72.3. He has a positive C3 level. Hepatitis screen was negative. C4 is normal and CH 50 is pending. ANCA studies pending (3) Mediastinal lymphadenopathy Is this a current diagnosis for this admission?: Yes Plan: Still unsure of the exact etiology. Will focus on vasculitis for the time being. (4) Leg pain, bilateral Is this a current diagnosis for this admission?: Yes Plan: Continue pain management. (5) Back pain without radiation Is this a current diagnosis for this admission?: Yes Plan: Continue pain management. (6) Anemia Qualifiers: Anemia type: unspecified type Qualified Code(s): D64.9 - Anemia, unspecified Is this a current diagnosis for this admission?: Yes Plan: Surprisingly his hemoglobin dropped to 8.0. His white blood cell count did come down to 29.3. His platelet count is holding over 600. We will continue to monitor closely. If his hemoglobin drops below 8.0 consider transfusion. (7) Edema Qualifiers: Edema type: unspecified Qualified Code(s): R60.9 - Edema, unspecified Is this a current diagnosis for this admission?: Yes Plan: Worsened by the steroids. May consider compression dressings. (8) Diarrhea Qualifiers: Diarrhea type: unspecified type Qualified Code(s): R19.7 - Diarrhea, unspecified Is this a current diagnosis for this admission?: Yes Plan: Resolved (9) Proteinuria Qualifiers: Proteinuria type: unspecified Qualified Code(s): R80.9 - Proteinuria, unspecified Is this a current diagnosis for this admission?: Yes Plan: 24-hour urine collection is complete. Await laboratory results. (10) Night sweats Is this a current diagnosis for this admission?: Yes Plan: Resolved (11) Person under investigation for COVID-19 Is this a current diagnosis for this admission?: Yes Plan: COVID test is negative - Time Time Spent with patient: 25-34 minutes Medications reviewed and adjusted accordingly: Yes Anticipated Discharge Disposition: Home with Home Health - Likely to need home health at discharge. Anticipated Discharge Timeframe: within 72 hours
[2020-08-07] MEDS: PANTOPRAZOLE SODIUM 40 MG TABLET.DR PO SCH ×2 (05:23→16:52)
[2020-08-07] MEDS: METHYLPREDNISOLONE INJ 125 MG/2 ML SDV IV SCH ×3 (05:23→21:39)
[2020-08-07] MEDS: OXYCODONE-ACETAMINOPHEN 5-325 MG TABLET PO PRN ×4 (05:28→23:05)
[2020-08-07] MEDS: RINGERS SOLUTION,LACTATED 1,000 ML IV PRN ×2 (06:48→16:52)
[2020-08-07] MEDS: LIDOCAINE 5% (700 MG) TRANSDERMAL ADH..PATCH TP SCH (10:15)
[2020-08-07] MEDS: ENOXAPARIN SODIUM INJ 80 MG/0.8 ML DISP.SYRIN SUBCUT SCH ×2 (10:17→21:39)
--- NOTE | 2020-08-07 15:42 | PDOC PROGRESS REPORT ---
Subjective Progress Note for:: 08/07/20 Subjective:: Tolerating solu-medrol 80mg q8. Feeling better but still achy. Reason For Visit: FEVERS,DIFFUSE MUSCULOSKELETAL PAIN,EDEMA,RASH, Physical Exam Vital Signs: Temp Pulse Resp BP Pulse Ox 98.1 F 70 22 H 151/68 H 96 08/07/20 13:11 08/07/20 11:22 08/07/20 11:22 08/07/20 11:22 08/07/20 11:22 Intake & Output 08/06/20 08/07/20 08/08/20 06:59 06:59 06:59 Intake Total 1999 4056 Output Total 425 1060 Balance 1575 2996 Weight 76 kg 76 kg General appearance: PRESENT: cooperative, mild distress, well-developed Ear exam: PRESENT: normal external ear exam. ABSENT: bleeding, drainage Mouth exam: PRESENT: moist, tongue midline Respiratory exam: PRESENT: clear to auscultation josh, symmetrical, unlabored. ABSENT: rales, rhonchi, tachypnea, wheezes Cardiovascular exam: PRESENT: RRR, +S1, +S2. ABSENT: bradycardia, diastolic murmur, irregular rhythm, systolic murmur, tachycardia GI/Abdominal exam: PRESENT: normal bowel sounds, soft. ABSENT: distended, guarding, tenderness Rectal exam: PRESENT: deferred Gentrourinary exam: ABSENT: indwelling catheter Extremities exam: PRESENT: pedal edema, +1 edema - lower legs Musculoskeletal exam: PRESENT: ambulatory. ABSENT: deformity, dislocation Neurological exam: PRESENT: alert, awake, oriented to person, oriented to place, oriented to time, oriented to situation, CN II-XII grossly intact. ABSENT: altered Psychiatric exam: PRESENT: appropriate affect, normal mood. ABSENT: agitated, a nxious Focused psych exam: ABSENT: delusional, paranoid, restlessness Skin exam: PRESENT: dry, rash - rash areas continue to fade, warm Results Laboratory Results: 08/06/20 06:33 08/06/20 06:33 08/05/20 11:31 Stool - Stool - Final 08/03/20 08/03/20 17:35 17:55 Creatine Kinase 61 Troponin I < 0.012 NT-Pro-B Natriuret Pep 861 H Impressions: Chest X-Ray 08/04/20 07:00 IMPRESSION: NO ACUTE RADIOGRAPHIC FINDING IN THE CHEST. Assessment and Plan - Diagnosis (1) Leucocytosis Qualifiers: Leukocytosis type: unspecified Qualified Code(s): D72.829 - Elevated white blood cell count, unspecified Is this a current diagnosis for this admission?: Yes Plan: Improving with tapering steroids doses. (2) Vasculitis Is this a current diagnosis for this admission?: Yes Plan: still unsure of the specific diagnosis but definitely a vasculitis (3) Mediastinal lymphadenopathy Is this a current diagnosis for this admission?: Yes Plan: still unsure of the etiology. Does not seem like a malignancy (4) Leg pain, bilateral Is this a current diagnosis for this admission?: Yes Plan: present but slightly improved (5) Back pain without radiation Is this a current diagnosis for this admission?: Yes Plan: this is a chronic condition. Continue analgesia (6) Anemia Qualifiers: Anemia type: unspecified type Qualified Code(s): D64.9 - Anemia, unspecified Is this a current diagnosis for this admission?: Yes Plan: Hgb is 8. will monitor closely. Consider supplements (7) Edema Qualifiers: Edema type: unspecified Qualified Code(s): R60.9 - Edema, unspecified Is this a current diagnosis for this admission?: Yes Plan: should decrease with tapering steroid doses and resolution of underlying illness (8) Diarrhea Qualifiers: Diarrhea type: unspecified type Qualified Code(s): R19.7 - Diarrhea, unspec ified Is this a current diagnosis for this admission?: Yes Plan: resolved (9) Proteinuria Qualifiers: Proteinuria type: unspecified Qualified Code(s): R80.9 - Proteinuria, unspecified Is this a current diagnosis for this admission?: Yes Plan: less than nephrotic range proteinuria. UPEP pending (10) Night sweats Is this a current diagnosis for this admission?: Yes Plan: resolved (11) Person under investigation for COVID-19 Is this a current diagnosis for this admission?: Yes Plan: negative - Time Time Spent with patient: 15-24 minutes Medications reviewed and adjusted accordingly: Yes Anticipated Discharge Disposition: Home, Self Care Anticipated Discharge Timeframe: within 48 hours
[2020-08-08] MEDS: OXYCODONE-ACETAMINOPHEN 5-325 MG TABLET PO PRN ×4 (05:26→23:02)
[2020-08-08] MEDS: PANTOPRAZOLE SODIUM 40 MG TABLET.DR PO SCH ×2 (05:26→17:50)
[2020-08-08] MEDS: METHYLPREDNISOLONE INJ 125 MG/2 ML SDV IV SCH (05:27)
[2020-08-08 06:54] LABS: HEMATOCRIT 23.3 % (37.9-51.0); MEAN CORPUSCULAR HEMOGLOBIN 31.2 pg (27.0-33.4); MEAN CORPUSCULAR HGB CONC 34.3 g/dL (32.0-36.0); MEAN CORPUSCULAR VOLUME 91 fl (80-97); PLATELET COUNT 641 10^3/uL (150-450); RED BLOOD COUNT 2.56 10^6/uL (4.35-5.55); RED CELL DISTRIBUTION WIDTH 13.8 % (11.5-14.0); WHITE BLOOD COUNT 21.5 10^3/uL (4.0-10.5)
[2020-08-08] MEDS: ENOXAPARIN SODIUM INJ 80 MG/0.8 ML DISP.SYRIN SUBCUT SCH ×2 (09:45→22:57)
[2020-08-08] MEDS: LIDOCAINE 5% (700 MG) TRANSDERMAL ADH..PATCH TP SCH (09:46)
[2020-08-08 11:21] LABS: APPEARANCE,URINE SLIGHTLY-CLOUDY; BILIRUBIN,URINE NEGATIVE (NEGATIVE); COLOR,URINE YELLOW; GLUCOSE, URINE NEGATIVE (NEGATIVE); KETONES,URINE NEGATIVE (NEGATIVE); LEUKOCYTE ESTERASE,URINE TRACE (NEGATIVE); NITRITE,URINE NEGATIVE (NEGATIVE); PROTEIN,URINE 100 mg/dL (NEGATIVE); URINE SPECIFIC GRAVITY 1.023
--- NOTE | 2020-08-08 13:54 | PDOC PROGRESS REPORT ---
Subjective Progress Note for:: 08/08/20 Subjective:: Continues to feel better. Still with some swelling in the legs. Reason For Visit: FEVERS,DIFFUSE MUSCULOSKELETAL PAIN,EDEMA,RASH, Physical Exam Vital Signs: Temp Pulse Resp BP Pulse Ox 98.2 F 71 21 H 139/66 H 99 08/08/20 11:29 08/08/20 11:29 08/08/20 11:29 08/08/20 11:29 08/08/20 11:29 Intake & Output 08/07/20 08/08/20 08/09/20 06:59 06:59 06:59 Intake Total 4056 2767 Output Total 1060 1450 Balance 2996 1317 Weight 76 kg 80 kg General appearance: PRESENT: no acute distress, cooperative, well-developed, other - is at the bedside Head exam: PRESENT: atraumatic, normocephalic Eye exam: PRESENT: conjunctiva pale. ABSENT: scleral icterus Ear exam: PRESENT: normal external ear exam. ABSENT: bleeding, drainage Mouth exam: PRESENT: moist, tongue midline Respiratory exam: PRESENT: clear to auscultation josh, symmetrical, unlabored. ABSENT: rales, rhonchi, tachypnea, wheezes Cardiovascular exam: PRESENT: RRR, +S1, +S2. ABSENT: bradycardia, diastolic murmur, irregular rhythm, systolic murmur, tachycardia GI/Abdominal exam: PRESENT: normal bowel sounds, soft. ABSENT: distended, guarding, tenderness Rectal exam: PRESENT: deferred Gentrourinary exam: ABSENT: indwelling catheter Extremities exam: PRESENT: pedal edema - slowly decreasing Neurological exam: PRESENT: alert, awake, oriented to person, oriented to place, oriented to time, oriented to situation, CN II-XII grossly intact. ABSENT: altered Psychiatric exam: PRESENT: appropriate affect. ABSENT: agitated, anxious Focused psych exam: ABSENT: delusional, paranoid, restlessness Skin exam: PRESENT: rash - now a pale lema in most areas except the malleolus heel area Results Laboratory Results: 08/08/20 06:40 08/06/20 06:33 08/08/20 08/08/20 06:40 11:03 WBC 21.5 H RBC 2.56 L Hgb 8.0 L Hct 23.3 L MCV 91 MCH 31.2 MCHC 34.3 RDW 13.8 Plt Count 641 H Urine Color YELLOW Urine Appearance SLIGHTLY-CLOUDY Urine pH 6.0 Ur Specific [place] 1.023 Urine Protein 100 H Urine Glucose (UA) NEGATIVE Urine Ketones NEGATIVE Urine Blood LARGE H Urine Nitrite NEGATIVE Ur Leukocyte Esterase TRACE H Urine WBC (Auto) 30 Urine RBC (Auto) 60 08/05/20 11:31 Stool - Stool - Final 08/05/20 11:31 Stool - Stool Stool Culture - Final Yeast, Not Amanda Albicans 08/03/20 08/03/20 17:35 17:55 Creatine Kinase 61 Troponin I < 0.012 NT-Pro-B Natriuret Pep 861 H Impressions: Chest X-Ray 08/04/20 07:00 IMPRESSION: NO ACUTE RADIOGRAPHIC FINDING IN THE CHEST. Assessment and Plan - Diagnosis (1) Leucocytosis Qualifiers: Leukocytosis type: unspecified Qualified Code(s): D72.829 - Elevated white blood cell count, unspecified Is this a current diagnosis for this admission?: Yes Plan: continue to monitor as steroid dose changes to prednisone (2) Vasculitis Is this a current diagnosis for this admission?: Yes Plan: Change to pred 60 bid and start slow taper as an outpatient and refer to Rheumatology. (3) Mediastinal lymphadenopathy Is this a current diagnosis for this admission?: Yes Plan: monitor as an outpatient. follow-up with repeat CT in 3 months (4) Leg pain, bilateral Is this a current diagnosis for this admission?: Yes Plan: Should slowly resolve over time (5) Back pain without radiation Is this a current diagnosis for this admission?: Yes Plan: consider chronic pain management as an outpatient (6) Anemia Qualifiers: Anemia type: unspecified type Qualified Code(s): D64.9 - Anemia, unspecified Is this a current diagnosis for this admission?: Yes Plan: Hgb still 8. Will give IV iron (7) Edema Qualifiers: Edema type: unspecified Qualified Code(s): R60.9 - Edema, unspecified Is this a current diagnosis for this admission?: Yes Plan: should resolve with resolution of underlying vasculitis (8) Diarrhea Qualifiers: Diarrhea type: unspecified type Qualified Code(s): R19.7 - Diarrhea, unspecified Is this a current diagnosis for this admission?: Yes Plan: resolved (9) Proteinuria Qualifiers: Proteinuria type: unspecified Qualified Code(s): R80.9 - Proteinuria, unspecified Is this a current diagnosis for this admission?: Yes Plan: less than nephrotic range proteinuria. UPEP pending (10) Night sweats Is this a current diagnosis for this admission?: Yes Plan: resolved (11) Person under investigation for COVID-19 Is this a current diagnosis for this admission?: Yes Plan: negative - Time Time Spent with patient: 15-24 minutes Medications reviewed and adjusted accordingly: Yes Anticipated Discharge Disposition: Home, Self Care Anticipated Discharge Timeframe: within 24 hours
[2020-08-08] MEDS ORDERED: METHYLPREDNISOLONE INJ 125 MG/2 ML SDV IV SCH (14:00)
[2020-08-08] MEDS ORDERED: METHYLPREDNISOLONE INJ 40 MG/1 ML SDV IV SCH (14:00)
[2020-08-08] MEDS: RINGERS SOLUTION,LACTATED 1,000 ML IV PRN (14:11)
[2020-08-08] MEDS ORDERED: IRON SUCROSE COMPLEX INJ/PF 100 MG/5 ML SDV IV ONE (17:30)
[2020-08-08] MEDS: PREDNISONE 20 MG TABLET PO SCH (17:50)
[2020-08-09] MEDS: RINGERS SOLUTION,LACTATED 1,000 ML IV PRN (01:31)
[2020-08-09 05:15] LABS: HEMOGLOBIN 8.2 g/dL (13.5-17.0); MEAN CORPUSCULAR HEMOGLOBIN 31.5 pg (27.0-33.4); MEAN CORPUSCULAR HGB CONC 34.1 g/dL (32.0-36.0); MEAN CORPUSCULAR VOLUME 92 fl (80-97); PLATELET COUNT 642 10^3/uL (150-450); WHITE BLOOD COUNT 18.7 10^3/uL (4.0-10.5)
[2020-08-09 05:40] LABS: ALBUMIN 2.6 g/dL (3.5-5.0); ALKALINE PHOSPHATASE 174 U/L (38-126); ANION GAP 6 (5-19); ASPARTATE AMINO TRANSFERASE 28 U/L (17-59); BILIRUBIN,DIRECT 0.3 mg/dL (0.0-0.4); BILIRUBIN,TOTAL 0.6 mg/dL (0.2-1.3); BLOOD UREA NITROGEN 21 mg/dL (7-20); C-REACTIVE PROTEIN 65.2 mg/L (<10.0); CALCIUM 8.5 mg/dL (8.4-10.2); CARBON DIOXIDE 28 mmol/L (22-30); CHLORIDE 105 mmol/L (98-107); GLUCOSE 131 mg/dL (75-110); POTASSIUM 4.5 mmol/L (3.6-5.0); TOTAL PROTEIN 5.4 g/dL (6.3-8.2)
[2020-08-09] MEDS: PANTOPRAZOLE SODIUM 40 MG TABLET.DR PO SCH (05:40)
[2020-08-09] MEDS: OXYCODONE-ACETAMINOPHEN 5-325 MG TABLET PO PRN (05:40)
[2020-08-09 05:46] LABS: ABSOLUTE LYMPHOCYTES# (MANUAL) 0.9 10^3/uL (0.5-4.7); ABSOLUTE MONOCYTES # (MANUAL) 1.1 10^3/uL (0.1-1.4); BASOPHILS % (MANUAL) 0 % (0-2); EOSINOPHILS % (MANUAL) 0 % (0-6); LYMPHOCYTES % (MANUAL) 5 % (13-45); MONOCYTES % (MANUAL) 6 % (3-13); SEGMENTED NEUTROPHILS % (MAN) 89 % (42-78); TOTAL CELLS COUNTED 100
[2020-08-09 05:49] LABS: OVALOCYTES SLIGHT; PLATELET COMMENT INCREASED; POIKILOCYTOSIS SLIGHT; TOXIC GRANULATION SLIGHT
[2020-08-09] MEDS ORDERED: PROMETHAZINE HCL INJ 25 MG/1 ML VIAL IV PRN (07:30)
[2020-08-09] MEDS: LIDOCAINE 5% (700 MG) TRANSDERMAL ADH..PATCH TP SCH (09:11)
[2020-08-09] MEDS: PREDNISONE 20 MG TABLET PO SCH (09:15)
[2020-08-09] MEDS: ENOXAPARIN SODIUM INJ 80 MG/0.8 ML DISP.SYRIN SUBCUT SCH (09:16)
[2020-08-09 13:25] VITALS: BP 130/71
[2020-08-09 14:48] LABS: PATH REVIEW PATHOLOGIST REVIEWED
[2020-08-09 15:36] LABS: CYTOPLASMIC (C-ANCA) <1:20 titer (Neg:<1:20)
[2020-08-09 16:37] LABS: ALBUMIN URINE 24HR 55.3 % (.); ALPHA-1-GLOBULIN URINE 24HR 3.5 % (.); ALPHA-2-GLOBULIN URINE 24HR 7.8 % (.); PROTEIN TOTAL UR 24HR 491 mg/24 hr (30-150); PROTEIN TOTAL URINE 49.6 mg/dL (Not Estab.)
--- NOTE | 2020-08-09 17:42 | PDOC DISCHARGE SUMMARY ---
Impression - Admit/DC Date/PCP Admission Date/Primary Care Provider: 08/03/20 20:35 WANG BARROSO MD Discharge Date: 08/09/20 - Assessment Summary: Assessment and Plan - Diagnosis (1) Leucocytosis Qualifiers: Leukocytosis type: unspecified Qualified Code(s): D72.829 - Elevated white blood cell count, unspecified Is this a current diagnosis for this admission?: Yes Plan: continue to monitor as steroid dose changes to prednisone 08/09/2020- WBC count is 18,700 improving. Came down from 37,000. Most likely due to steroids. Patient is afebrile. Blood pressures are stable. (2) Vasculitis Is this a current diagnosis for this admission?: Yes Plan: Change to pred 60 bid and start slow taper as an outpatient and refer to Rheumatology. 07/03/2020-patient is advised to continue p.o. prednisone 60 mg twice daily as an outpatient for the next 1 week and follow-up with rheumatology as an outpatient. (3) Mediastinal lymphadenopathy Is this a current diagnosis for this admission?: Yes Plan: monitor as an outpatient. follow-up with repeat CT in 3 months (4) Leg pain, bilateral Is this a current diagnosis for this admission?: Yes Plan: Should slowly resolve over time Patient denies any leg pains at the time of my examination. (5) Back pain without radiation Is this a current diagnosis for this admission?: Yes Plan: consider chronic pain management as an outpatient (6) Anemia Qualifiers: Anemia type: unspecified type Qualified Code(s): D64.9 - Anemia, unspecified Is this a current diagnosis for this admission?: Yes Plan: Hgb still 8. Will give IV iron 08/09/2020-patient hemoglobin is 8.2 most likely secondary to IV hydration. (7) Edema Qualifiers: Edema type: unspecified Qualified Code(s): R60.9 - Edema, unspecified Is this a current diagnosis for this admission?: Yes Plan: should resolve with resolution of underlying vasculitis 08/09/2020-patient has 2+ pedal edema IV fluids are discontinued requested the patient to stay overnight for further management but the Patient prefers to go home. (8) Diarrhea Qualifiers: Diarrhea type: unspecified type Qualified Code(s): R19.7 - Diarrhea, unspecified Is this a current diagnosis for this admission?: Yes Plan: resolved (9) Proteinuria Qualifiers: Proteinuria type: unspecified Qualified Code(s): R80.9 - Proteinuria, unspecified Is this a current diagnosis for this admission?: Yes Plan: less than nephrotic range proteinuria. UPEP pending (10) Night sweats Is this a current diagnosis for this admission?: Yes Plan: resolved (11) Person under investigation for COVID-19 Is this a current diagnosis for this admission?: Yes Plan: negative - Additional Information Resuscitation Status: Full Code Discharge Diet: Cardiac Discharge Activity: Activity As Tolerated Referrals: MADHURI MONTES DE OCA MD [ACTIVE STAFF] - WANG BARROSO MD [Primary Care Provider] - 08/18/20 2:45 pm Prescriptions: Prednisone [Deltasone 20 mg Tablet] 60 mg PO BID 7 Days #14 tablet Alprazolam [Xanax] 0.5 mg PO Q6HP PRN #20 tablet PRN Reason: Home Medications: Oxycodone HCl/Acetaminophen [Percocet 5-325 mg Tablet] 2 tab PO Q8HP PRN 08/04/20 Alprazolam [Xanax] 0.5 mg PO Q6HP PRN #20 tablet 08/09/20 Prednisone [Deltasone 20 mg Tablet] 60 mg PO BID 7 Days #14 tablet 08/09/20 History of Present Illiness History of Present Illness: TRINITY MARION JR is a 55 year old male 55 year old male who was recently discharged on July 30. He presented with edema, painful extremities and rash. Interestingly he received a dose of Solu- Medrol in the emergency department and felt better. He was discharged with a presumptive diagnosis of [place] spotted fever. The IgG was right at the cutoff and the IgM was negative so this makes [place] spotted fever unlikely. He states that he felt good for about a day after discharge. He then began to have night sweats and feeling feverish. The pain increased significantly. He has pain in the central back area as well as all of his ex tremities. He still has edema in both lower extremities. The rash has gone to a macular type rash with vasculitic-like appearance. His C-reactive protein is markedly elevated. 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 He has been on Lovenox at home. As he has been feeling much worse, he visited with his primary care provider. Because of his current status we agreed to admit the patient for ongoing work-up. Hospital Course Hospital Course: 55 year old male who was recently discharged on July 30. He presented with edema, painful extremities and rash. Interestingly he received a dose of Solu- Medrol in the emergency department and felt better. He was discharged with a presumptive diagnosis of [place] spotted fever. The IgG was right at the cutoff and the IgM was negative so this makes [place] spotted fever unlikely. He states that he felt good for about a day after discharge. He then began to have night sweats and feeling feverish. The pain increased significantly. He has pain in the central back area as well as all of his extremities. He still has edema in both lower extremities. The rash has gone to a macular type rash with vasculitic-like appearance. His C-reactive protein is markedly elevated. 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 He has been on Lovenox at home. As he has been feeling much worse, he visited with his primary care provider. Because of his current status we agreed to admit the patient for ongoing work-up. 08/09/[id number]-yrnm-old male admitted for lower extremity edema associated with painful extremities. He is on p.o. prednisone 60 mg p.o. twice daily and receiving IV fluids. I discontinued IV fluids today and discussed the plan of care with the patient and the patient prefers to go home today. Advised him to stay until tomorrow but patient wants to go home and continue prednisone at home and follow-up with Dr. Montes De Oca as an outpatient. Patient is requesting for Xanax is. Give a prescription for Xanax. Physical Exam Vital Signs: Temp Pulse Resp BP Pulse Ox 97.9 F 65 16 130/71 H 97 08/09/20 13:21 08/09/20 13:21 08/09/20 13:21 08/09/20 13:21 08/09/20 13:21 Intake & Output 08/08/20 08/09/20 08/10/20 06:59 06:59 06:59 Intake Total 3767 2491 1240 Output Total 1450 325 800 Balance 2317 2166 440 Weight 80 kg 85 kg General appearance: PRESENT: no acute distress, cooperative, well-developed Head exam: PRESENT: atraumatic Eye exam: PRESENT: PERRLA Ear exam: PRESENT: normal external ear exam Mouth exam: PRESENT: moist, tongue midline Neck exam: ABSENT: carotid bruit, JVD, lymphadenopathy, thyromegaly Respiratory exam: PRESENT: decreased breath sounds Cardiovascular exam: PRESENT: RRR. ABSENT: diastolic murmur, rubs, systolic murmur GI/Abdominal exam: PRESENT: normal bowel sounds, soft. ABSENT: distended, guarding, mass, organolmegaly, rebound, tenderness Rectal exam: PRESENT: deferred Extremities exam: PRESENT: +2 edema Neurological exam: PRESENT: alert, awake, oriented to person, oriented to place, oriented to time, oriented to situation, CN II-XII grossly intact. ABSENT: motor sensory deficit Psychiatric exam: PRESENT: appropriate affect, normal mood. ABSENT: homicidal ideation, suicidal ideation Results Laboratory Results: WBC 18.7 10^3/uL (4.0-10.5) H 08/09/20 04:12 RBC 2.60 10^6/uL (4.35-5.55) L 08/09/20 04:12 Hgb 8.2 g/dL (13.5-17.0) L 08/09/20 04:12 Hct 24.0 % (37.9-51.0) L 08/09/20 04:12 MCV 92 fl (80-97) 08/09/20 04:12 MCH 31.5 pg (27.0-33.4) 08/09/20 04:12 MCHC 34.1 g/dL (32.0-36.0) 08/09/20 04:12 RDW 14.0 % (11.5-14.0) 08/09/20 04:12 Plt Count 642 10^3/uL (150-450) H 08/09/20 04:12 Lymph % (Auto) Not Reportable 08/09/20 04:12 [place] % (Auto) Not Reportable 08/09/20 04:12 Eos % (Auto) Not Reportable 08/09/20 04:12 Baso % (Auto) Not Reportable 08/09/20 04:12 Absolute Neuts (auto) Not Reportable 08/09/20 04:12 Absolute Lymphs (auto) Not Reportable 08/09/20 04:12 Absolute Monos (auto) Not Reportable 08/09/20 04:12 Absolute Eos (auto) Not Reportable 08/09/20 04:12 Absolute Basos (auto) Not Reportable 08/09/20 04:12 Total Counted 100 08/09/20 04:12 Seg Neutrophils % Not Reportable 08/09/20 04:12 Seg Neuts % (Manual) 89 % (42-78) H 08/09/20 04:12 Lymphocytes % (Manual) 5 % (13-45) L 08/09/20 04:12 Monocytes % (Manual) 6 % (3-13) 08/09/20 04:12 Eosinophils % (Manual) 0 % (0-6) 08/09/20 04:12 Basophils % (Manual) 0 % (0-2) 08/09/20 04:12 Abs Neuts (Manual) 16.6 10^3/uL (1.7-8.2) H 08/09/20 04:12 Abs Lymphs (Manual) 0.9 10^3/uL (0.5-4.7) 08/09/20 04:12 Abs Monocytes (Manual) 1.1 10^3/uL (0.1-1.4) 08/09/20 04:12 Absolute Eos (Manual) 0.0 10^3/uL (0.0-0.6) 08/09/20 04:12 Abs Basophils (Manual) 0.0 10^3/uL (0.0-0.2) 08/09/20 04:12 Hypersegmented Neuts PRESENT 08/06/20 06:33 Toxic Granulation SLIGHT 08/09/20 04:12 Toxic Vacuolation PRESENT 08/06/20 06:33 Platelet Comment INCREASED 08/09/20 04:12 Polychromasia SLIGHT 08/06/20 06:33 Poikilocytosis SLIGHT 08/09/20 04:12 Ovalocytes SLIGHT 08/09/20 04:12 Schistocytes SLIGHT 08/06/20 06:33 PT 14.0 SEC (11.4-15.4) 08/03/20 17:35 INR 1.06 08/03/20 17:35 APTT 38.5 SEC (23.5-35.8) H 08/03/20 17:35 D-Dimer 5.34 ug/mL (0.00-0.50) H 08/06/20 06:33 Sodium 139.4 mmol/L (137-145) 08/09/20 04:12 Potassium 4.5 mmol/L (3.6-5.0) 08/09/20 04:12 Chloride 105 mmol/L (98-107) 08/09/20 04:12 Carbon Dioxide 28 mmol/L (22-30) 08/09/20 04:12 Anion Gap 6 (5-19) 08/09/20 04:12 BUN 21 mg/dL (7-20) H 08/09/20 04:12 Creatinine 0.69 mg/dL (0.52-1.25) 08/09/20 04:12 Est GFR ( Amer) > 60 (>60) 08/09/20 04:12 Est GFR (MDRD) Non-Af > 60 (>60) 08/09/20 04:12 Glucose 131 mg/dL (75-110) H 08/09/20 04:12 Lactic Acid 0.7 mmol/L (0.7-2.1) 08/03/20 17:57 Calcium 8.5 mg/dL (8.4-10.2) 08/09/20 04:12 Magnesium 2.2 mg/dL (1.6-2.3) 08/09/20 04:12 Ferritin 352.00 ng/mL (17.9-464.0) 08/03/20 17:35 Total Bilirubin 0.6 mg/dL (0.2-1.3) 08/09/20 04:12 Direct Bilirubin 0.3 mg/dL (0.0-0.4) 08/09/20 04:12 Neonat Total Bilirubin Not Reportable 08/09/20 04:12 Neonat Direct Bilirubin Not Reportable 08/09/20 04:12 Neonat Indirect Bili Not Reportable 08/09/20 04:12 AST 28 U/L (17-59) 08/09/20 04:12 ALT 44 U/L (<50) 08/09/20 04:12 Alkaline Phosphatase 174 U/L (38-126) H 08/09/20 04:12 Creatine Kinase 61 U/L (55-170) 08/03/20 17:55 Troponin I < 0.012 ng/mL 08/03/20 17:35 C-Reactive Protein 65.2 mg/L (<10.0) H 08/09/20 04:12 NT-Pro-B Natriuret Pep 861 pg/mL (<125) H 08/03/20 17:35 Total Protein 5.4 g/dL (6.3-8.2) L 08/09/20 04:12 Albumin 2.6 g/dL (3.5-5.0) L 08/09/20 04:12 Globulin 3.6 g/dL (2.2-3.9) 08/04/20 07:10 Alb/Glob Ratio Alt Meth 0.6 (0.7-1.7) L 08/04/20 07:10 Ltzgq-6-Zfbguyyby 0.6 g/dL (0.0-0.4) H 08/04/20 07:10 Fnnsa-2-Pzqajinio 1.2 g/dL (0.4-1.0) H 08/04/20 07:10 Beta Globulins 1.0 g/dL (0.7-1.3) 08/04/20 07:10 Gamma Globulins 0.8 g/dL (0.4-1.8) 08/04/20 07:10 M-Ted Not Observed g/dL (Not Observ) 08/04/20 07:10 Immunoglobulin A 252 mg/dL (90-386) 08/04/20 07:10 Immunoglobulin G 985 mg/dL (603-1613) 08/04/20 07:10 Immunoglobulin M 61 mg/dL (20-172) 08/04/20 07:10 Serum Immunofixation Comment (.) 08/04/20 07:10 Immunofixation Note Comment (.) 08/04/20 07:10 Urine Color YELLOW 08/08/20 11:03 Urine Appearance SLIGHTLY-CLOUDY 08/08/20 11:03 Urine pH 6.0 (5.0-9.0) 08/08/20 11:03 Ur Specific [place] 1.023 08/08/20 11:03 Urine Protein 100 mg/dL (NEGATIVE) H 08/08/20 11:03 Urine Glucose (UA) NEGATIVE mg/dL (NEGATIVE) 08/08/20 11:03 Urine Ketones NEGATIVE mg/dL (NEGATIVE) 08/08/20 11:03 Urine Blood LARGE (NEGATIVE) H 08/08/20 11:03 Urine Nitrite NEGATIVE (NEGATIVE) 08/08/20 11:03 Urine Bilirubin NEGATIVE (NEGATIVE) 08/08/20 11:03 Urine Urobilinogen 4.0 mg/dL (<2.0) H 08/08/20 11:03 Ur Leukocyte Esterase TRACE (NEGATIVE) H 08/08/20 11:03 Urine WBC (Auto) 30 /HPF 08/08/20 11:03 Urine RBC (Auto) 60 /HPF 08/08/20 11:03 U Hyaline Cast (Auto) 4 /LPF 08/08/20 11:03 Urine Bacteria (Auto) TRACE /HPF 08/08/20 11:03 Squamous Epi Cells Auto <1 /HPF 08/05/20 17:38 Amorphous Sediment Auto TRACE /HPF 08/04/20 04:40 Urine Mucus (Auto) RARE /LPF 08/08/20 11:03 Ur 24 Hour Volume 990 mL 08/06/20 01:00 Urine Creatinine 133.1 mg/dL (22-328) 08/06/20 01:00 Ur Creatinine mg/24hr 1.3 mg/day (0.8-2.0) 08/06/20 01:00 Ur Total Protein 24 Hr 372 mg/day (42-225) H 08/06/20 01:00 Urine Total Protein 37.6 mg/dL (<12) H 08/06/20 01:00 Urine Ascorbic Acid NEGATIVE (NEGATIVE) 08/08/20 11:03 Stool Occult Blood NEGATIVE (NEGATIVE) 08/05/20 11:31 Stool for White Cells NO WBCs SEEN 08/05/20 11:31 Albumin (ABDULAZIZ) 2.1 g/dL (2.9-4.4) L 08/04/20 07:10 Complement C3 215 mg/dL (82-167) H 08/04/20 07:10 Complement C4 34 mg/dL (14-44) 08/04/20 07:10 COVID-19 Source NASOPHARYNGEAL 08/03/20 17:45 COVID-19 (ELLIOT) NOT DETECTED 08/03/20 17:45 Hepatitis A IgM Ab Negative (Negative) 08/04/20 07:10 Hep Bs Antigen Negative (Negative) 08/04/20 07:10 Hep B Core IgM Ab Negative (Negative) 08/04/20 07:10 Hepatitis C Antibody <0.1 s/co ratio (0.0-0.9) 08/04/20 07:10 Slides for Path Review PATHOLOGIST REVIEWED 08/05/20 08:33 08/03/20 17:35 Troponin I < 0.012 NT-Pro-B Natriuret Pep 861 H Impressions: Chest X-Ray 08/04/20 07:00 IMPRESSION: NO ACUTE RADIOGRAPHIC FINDING IN THE CHEST. Stroke Is this a Stroke Patient?: No Acute Heart Failure - Is this a Heart Failure Patient?: No
[2020-08-09] MEDS ORDERED: PHARMACY COMMUNICATION ORDER MC SCH (22:00)
[2020-08-10 07:16] LABS: ATYPICAL PANCA <1:20 titer (Neg:<1:20)
== END 2020-08-09 13:46 | disposition home or self-care (01) | DRG 546 ==
LOC: ER 15:41 → EH 20:35 → 3W 08-04 17:06
PROVIDERS: ADMIT Hospitalist; ATTEND Internal Medicine
DX: I77.6 Arteritis, unspecified (principal); I82.503 Chronic embolism and thrombosis of unspecified deep veins of lower extremity, bilateral; J44.9 Chronic obstructive pulmonary disease, unspecified; M19.90 Unspecified osteoarthritis, unspecified site; D64.9 Anemia, unspecified; D72.829 Elevated white blood cell count, unspecified; R80.9 Proteinuria, unspecified; R19.7 Diarrhea, unspecified; R59.1 Generalized enlarged lymph nodes; R61 Generalized hyperhidrosis; Z20.828 Contact with and (suspected) exposure to other viral communicable diseases
CPT/HCPCS: 36415; 71045; 80048; 80053; 80074; 81001; 82272; 82550; 82570; 82728; 83605; 83735; 83880; 84156; 84166; 84484; 85025; 85027; 85379; 85610; 85730; 86021; 86140; 86160; 86162; 86320; 87045; 87205; 87635; 89055; 93005; 93010; 96374; 96375; 99285; C9803; J1650; J1756; J1885; J2405; J2920; J2930; J3010; J3490; J7120; J7512

== ENCOUNTER 2020-08-09 23:47 | Observation (INO) | payer BC ==
[2020-08-10] MEDS ORDERED: ONDANSETRON HCL INJ/PF 4 MG/2 ML SDV IV ONE (04:11)
[2020-08-10] MEDS ORDERED: FENTANYL CITRATE INJ/PF 100 MCG/2 ML AMPUL IV ONE (04:15)
--- NOTE | 2020-08-10 04:38 | ER Document Report ---
ED General - General Chief Complaint: Swelling Stated Complaint: SWELLING Time Seen by Provider: 08/10/20 03:46 TRAVEL OUTSIDE OF THE [place] IN LAST 30 DAYS: No - HPI Notes: Patient is a 55 y/o male and presents for increased swelling and pain. Patient was discharged yesterday from [facility] around 2PM for vasculitis. He was sent home with Prednisone 60mg PO BID. Patient states he began having worsening edema to his testicles and genitalia and he contacted his PCP, Dr. Nicole. Per patient, Dr. Nicole contacted Dr. Hamm and it was decided to proceed with a direct admission from Dr. Nicole and a bed held for him with instructions to come to [facility] by 7PM. Patient however would not come to the hospital until his persuaded him. They did not arrive to [facility] until after midnight and there was no longer a bed for the patient. Patient reports significant swelling and pain to his BLE, testicules, genitalia and lower abdomen. The swelling in his BLE has been ongoing for the past three weeks and he was diagnosed with BLE DVT and is being treated with Lovenox 80mg BID. Patient has had multiple admissions since onset. Per spouse, patient's usual weight is 150lbs but his weight today is 186lbs. - Related Data Allergies/Adverse Reactions: cyclobenzaprine HCl [From Flexeril] Allergy (Severe, Verified 07/24/20 09:54) Hives morphine Allergy (Intermediate, Verified 07/24/20 09:54) Burning rash Home Medications: oxycodone, lovenox, prednisone, xanax, Past Medical History - General Information source: Patient - Social History Smoking Status: Never Smoker Family History: Malignancy - Throat cancer in brother, colon cancer in mother. No DVT/PE family history - Past Medical History Cardiac Medical History: Reports: Hx DVT Denies: Hx Coronary Artery Disease, Hx Heart Attack, Hx Hypertension Pulmonary Medical History: Reports: Hx COPD Denies: Hx Asthma, Hx Bronchitis, Hx Pneumonia Neurological Medical History: Denies: Hx Cerebrovascular Accident, Hx Seizures Musculoskeletal Medical History: Reports Hx Arthritis Psychiatric Medical History: Denies: Hx Depression Past Surgical History: Reports: Other - Removal of lesion on the upper lip. Colonoscopy by Dr. Morales years ago.. Denies: Hx Pacemaker - Immunizations Hx Diphtheria, Pertussis, Tetanus Vaccination: Yes Review of Systems - Review of Systems Constitutional: No symptoms reported EENT: No symptoms reported Cardiovascular: See HPI Respiratory: No symptoms reported Gastrointestinal: No symptoms reported Genitourinary: No symptoms reported Male Genitourinary: No symptoms reported Musculoskeletal: See HPI Skin: No symptoms reported Hematologic/Lymphatic: No symptoms reported Neurological/Psychological: No symptoms reported Physical Exam - Vital signs Vitals: Temp Pulse Resp BP Pulse Ox 99.1 F 72 18 146/85 H 96 08/09/20 23:55 08/09/20 23:55 08/09/20 23:55 08/09/20 23:55 08/09/20 23:55 - Notes Notes: PHYSICAL EXAMINATION: VITALS: Vitals reviewed and within normal limits. GENERAL: Well-appearing, well-nourished and in no acute distress. HEAD: Atraumatic, normocephalic. EYES: Pupils equal round and reactive to light, extraocular movements intact, sclera anicteric, conjunctiva are normal. ENT: nares patent, oropharynx clear without exudates. Moist mucous membranes. NECK: Normal range of motion, supple without lymphadenopathy. LUNGS: Breath sounds clear to auscultation bilaterally and equal. No wheezes rales or rhonchi. HEART: Regular rate and rhythm without murmurs. ABDOMEN: Soft, nontender, normoactive bowel sounds. No guarding, no rebound. No masses appreciated. GENITOURINARY: Significant edema to the testicles and penis, tender to palpation. No erythema or warmth noted. EXTREMITIES: 3+ pitting edema to BLE extending throughout. No erythema, warmth or cellulitic changes noted. NEUROLOGICAL: No focal neurological deficits. Moves all extremities spontaneously and on command. PSYCH: Normal mood, normal affect. SKIN: Warm, Dry, normal turgor, no rashes or lesions noted. Course - Re-evaluation Re-evalutation: Patient is a 55 y/o male who presents with significant swelling and pain to his BLE and genitalia. Patient was discharged yesterday from [facility] at 2PM with a diagnosis of vasculitis. Patient had worsening edema, especially to his aston ticles and penis and contacted his PCP, Dr. Nicole. Dr. Nicole decided to direct admit the patient with written orders and bed was held for the patient until 7PM today. Patient refused to come in until his convinced him. They did not arrive to the ED until after midnight and his bed was no longer available, causing him to be checked into the ED. Per summary by Dr. Hamm, patient was wanted to be discharged even though Dr. Hamm recommended staying one more night. I contacted the nurse manager requirements, Efren, who was already aware of the situation. Efren stated that there were no longer any beds available but he could be re-admitted and would be taken up to the floor once a bed becomes available, but would have to wait for the patients ahead of him to receive their beds. He recommended I speak with the night-time hospitalist. I called and spoke with Dr. Cruz. Dr. Cruz stated that [facility] group normally accepts all of Dr. Nicole's patients, but normally Dr. Nicole doesn't direct admit with admission orders. Based on the current situation and written physician orders, Dr. Cruz recommends proceeding with an inpatient admission to Dr. Nicole per his orders. He states the once Dr. Nicole can be contacted in the morning they can determine how to proceed. Dr. Cruz states that his group would gladly accept the patient if needed. Patient given Fentanyl 75 mcg IV and Zofran 4mg IV here in the ED. - Vital Signs Vital signs: Temp Pulse Resp BP Pulse Ox 99.1 F 72 18 146/85 H 96 08/09/20 23:55 08/09/20 23:55 08/09/20 23:55 08/09/20 23:55 08/09/20 23:55 - Laboratory Result Diagrams: 08/10/20 06:00 08/10/20 06:00 Discharge - Discharge Clinical Impression: Leg pain, bilateral, Vasculitis Edema Qualifiers: Edema type: generalized Qualified Code(s): R60.1 - Generalized edema Condition: Stable Disposition: ADMITTED INPATIENT Admitting Provider: Corey Unit Admitted: Telemetry
[2020-08-10 06:18] LABS: HEMATOCRIT 26.7 % (37.9-51.0); HEMOGLOBIN 9.1 g/dL (13.5-17.0); MEAN CORPUSCULAR HEMOGLOBIN 31.2 pg (27.0-33.4); MEAN CORPUSCULAR VOLUME 92 fl (80-97); PLATELET COUNT 696 10^3/uL (150-450); RED BLOOD COUNT 2.91 10^6/uL (4.35-5.55); RED CELL DISTRIBUTION WIDTH 14.2 % (11.5-14.0); WHITE BLOOD COUNT 18.3 10^3/uL (4.0-10.5)
[2020-08-10 06:32] LABS: ALBUMIN 2.9 g/dL (3.5-5.0); ALKALINE PHOSPHATASE 205 U/L (38-126); ANION GAP 6 (5-19); ASPARTATE AMINO TRANSFERASE 26 U/L (17-59); BILIRUBIN,DIRECT 0.4 mg/dL (0.0-0.4); BILIRUBIN,TOTAL 0.8 mg/dL (0.2-1.3); BLOOD UREA NITROGEN 20 mg/dL (7-20); CALCIUM 8.6 mg/dL (8.4-10.2); CARBON DIOXIDE 30 mmol/L (22-30); CHLORIDE 103 mmol/L (98-107); GLUCOSE 138 mg/dL (75-110); POTASSIUM 4.2 mmol/L (3.6-5.0); TOTAL PROTEIN 5.9 g/dL (6.3-8.2)
[2020-08-10 07:02] LABS: ABSOLUTE LYMPHOCYTES# (MANUAL) 0.7 10^3/uL (0.5-4.7); ABSOLUTE MONOCYTES # (MANUAL) 0.5 10^3/uL (0.1-1.4); BASOPHILS % (MANUAL) 0 % (0-2); EOSINOPHILS % (MANUAL) 0 % (0-6); LYMPHOCYTES % (MANUAL) 4 % (13-45); MONOCYTES % (MANUAL) 3 % (3-13); SEGMENTED NEUTROPHILS % (MAN) 93 % (42-78); TOTAL CELLS COUNTED 100
[2020-08-10 07:04] LABS: ANISOCYTOSIS SLIGHT; PLATELET COMMENT INCREASED
--- NOTE | 2020-08-10 09:33 | EKG REPORT ---
SEVERITY:- ABNORMAL ECG - SINUS RHYTHM ABNORMAL T, CONSIDER ISCHEMIA, DIFFUSE LEADS BORDERLINE PROLONGED QT INTERVAL : Confirmed by: Shahzad Velasco MD 10-Aug-2020 09:33:08
[2020-08-10] MEDS: PANTOPRAZOLE SODIUM 40 MG TABLET.DR PO SCH ×2 (09:47→17:47)
[2020-08-10] MEDS: PREDNISONE 20 MG TABLET PO SCH ×2 (09:47→22:16)
[2020-08-10] MEDS: ENOXAPARIN SODIUM INJ 100 MG/1 ML DISP.SYRIN SUBCUT SCH ×2 (09:47→22:16)
[2020-08-10] MEDS ORDERED: FUROSEMIDE 40 MG TABLET PO SCH (10:00)
[2020-08-10] MEDS ORDERED: ACETAMINOPHEN 325 MG TABLET PO PRN (11:20)
[2020-08-10] MEDS ORDERED: ONDANSETRON HCL INJ/PF 4 MG/2 ML SDV IV PRN (11:20)
--- NOTE | 2020-08-10 11:34 | PDOC H&P ---
History of Present Illness Admission Date/PCP: 08/10/20 04:56 WANG BARROSO MD Patient complains of: Lower leg swelling History of Present Illness: TRINITY MARION JR is a 55 year old male with history of bilateral lower extremity edema, nonspecific rash, recent history of bilateral DVTs on Lovenox discharged home yesterday and p.o. prednisone came back to the emergency with complaining of increasing swelling of the lower extremities including the genitalia. Denies any chest pains or palpitations. In the ER he also complaining of shortness of breath he was placed on oxygen supplementation. No other complaints. His hemoglobin is yesterday 8 point 2 repeat hemoglobin 9.1 patient does not want any blood transfusion at this time. agreed To stay in the hospital for further management and is a full code. Past Medical History Cardiac Medical History: Reports: DVT Denies: Coronary Artery Disease, Myocardial Infarction, Hypertension Pulmonary Medical History: Reports: Chronic Obstructive Pulmonary Disease (COPD) Denies: Asthma, Bronchitis, Pneumonia Neurological Medical History: Denies: Seizures Musculoskeltal Medical History: Reports: Arthritis Psychiatric Medical History: Denies: Depression Hematology: Denies: Anemia Past Surgical History Past Surgical History: Reports: Other - Removal of lesion on the upper lip. Colonoscopy by Dr. Morales years ago. Denies: Pacemaker Social History Smoking Status: Never Smoker Frequency of Alcohol Use: None Hx Recreational Drug Use: No Drugs: None Hx Prescription Drug Abuse: No - Advance Directive Resuscitation Status: Full Code Family History Family History: Malignancy - Throat cancer in brother, colon cancer in mother. No DVT/PE family history Parental Family History Reviewed: Yes - Hypertension Children Family History Reviewed: Yes Sibling(s) Family History Reviewed.: Yes Medication/Allergy Home Medications: Oxycodone HCl/Acetaminophen [Percocet 5-325 mg Tablet] 2 tab PO Q6HP PRN 08/04/20 Prednisone [Deltasone 20 mg Tablet] 60 mg PO BID 7 Days #14 tablet 08/09/20 Alprazolam [Xanax] 0.5 mg PO Q6HP PRN 08/10/20 Diazepam [Valium 5 mg Tablet] 5 mg PO TIDP PRN 08/10/20 Enoxaparin Sodium [Lovenox Inj 80 mg/0.8 ml Disp.syrin] 80 mg SUBCUT Q12 08/10/20 Allergies/Adverse Reactions: cyclobenzaprine HCl [From Flexeril] Allergy (Severe, Verified 07/24/20 09:54) Hives morphine Allergy (Intermediate, Verified 07/24/20 09:54) Burning rash Review of Systems Constitutional: ABSENT: fever(s), headache(s), weakness Eyes: ABSENT: visual disturbances Ears: ABSENT: hearing changes Nose, Mouth, and Throat: ABSENT: sore throat Cardiovascular: PRESENT: edema Respiratory: PRESENT: dyspnea Gastrointestinal: ABSENT: abdominal pain, constipation, diarrhea, hematemesis, hematochezia, nausea, vomiting Genitourinary: PRESENT: other - Complaining of swelling of the scrotum Neurological: ABSENT: abnormal gait, abnormal speech, confusion, dizziness, focal weakness, syncope Psychiatric: ABSENT: anxiety, depression, homidical ideation, suicidal ideation Physical Exam Vital Signs: Temp Pulse Resp BP Pulse Ox 98.1 F 63 16 157/80 H 93 08/10/20 08:31 08/10/20 08:37 08/10/20 08:31 08/10/20 08:31 08/10/20 08:31 Intake & Output 08/09/20 08/10/20 08/11/20 06:59 06:59 06:59 Weight 84.822 kg 85.4 kg General appearance: PRESENT: no acute distress, well-developed Head exam: PRESENT: atraumatic Eye exam: PRESENT: PERRLA Ear exam: PRESENT: normal external ear exam Mouth exam: PRESENT: neck supple Neck exam: ABSENT: carotid bruit, JVD, lymphadenopathy, thyromegaly Respiratory exam: PRESENT: decreased breath sounds Cardiovascular exam: PRESENT: RRR. ABSENT: diastolic murmur, rubs, systolic murmur GI/Abdominal exam: PRESENT: normal bowel sounds, soft. ABSENT: distended, guarding, mass, organolmegaly, rebound, tenderness Rectal exam: PRESENT: deferred Extremities exam: PRESENT: +2 edema. ABSENT: calf tenderness, clubbing Neurological exam: PRESENT: alert, awake, oriented to person, oriented to place, oriented to time, oriented to situation, CN II-XII grossly intact. ABSENT: motor sensory deficit Results Laboratory Results: 08/10/20 06:00 08/10/20 06:00 08/10/20 08/10/20 08/10/20 06:00 06:00 06:00 WBC 18.3 H RBC 2.91 L Hgb 9.1 L Hct 26.7 L MCV 92 MCH 31.2 MCHC 34.0 RDW 14.2 H Plt Count 696 H Seg Neutrophils % Not Reportable Sodium 138.8 Potassium 4.2 Chloride 103 Carbon Dioxide 30 Anion Gap 6 BUN 20 Creatinine 0.71 Est GFR ( Amer) > 60 Glucose 138 H Calcium 8.6 Magnesium 2.1 Total Bilirubin 0.8 AST 26 Alkaline Phosphatase 205 H Total Protein 5.9 L Albumin 2.9 L Blood Type B POSITIVE Antibody Screen NEGATIVE Assessment and Plan - Diagnosis (1) Leucocytosis Qualifiers: Is this a current diagnosis for this admission?: Yes Plan: 08/10/2020-WBC count is 18,300 patient is on prednisone 60 mg p.o. twice a day. To closely monitor the labs on regular basis and plan to gradually taper off prednisone at this time. (2) Vasculitis Is this a current diagnosis for this admission?: Yes Plan: 08/10/2020-patient is getting prednisone 60 mg p.o. twice daily for vasculitis. We tried to get him an appointment with Dr. Freeman as an outpatient. In the meantime we will continue p.o. prednisone and gradually taper off the medication. Hepatitis profile came back negative. C-ANCA p-ANCA done negative. C3 is elevated to 215. CH 50 is more than 60. Complement C4 within normal limits. (3) Proteinuria Qualifiers: Proteinuria type: unspecified Qualified Code(s): R80.9 - Proteinuria, unspecified Is this a current diagnosis for this admission?: No Plan: UPEP is done came back within normal limits. 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 Plan is to continue the present management at this time. (5) Anemia Qualifiers: Anemia type: unspecified type Qualified Code(s): D64.9 - Anemia, unspecified Is this a current diagnosis for this admission?: No Plan: 08/10/2020-patient has history of anemia of chronic disease. Latest hemoglobin is 9.1. Patient does not want any blood transfusions at this time. (6) Edema Qualifiers: Edema type: generalized Qualified Code(s): R60.1 - Generalized edema Is this a current diagnosis for this admission?: Yes Plan: 08/10/2020-patient has a 2+ pedal edema. Not on IV fluids. Receiving Lasix 40 mg p.o. daily. Check daily weights. Input output chart is requested. (7) Leg pain, bilateral Is this a current diagnosis for this admission?: Yes Plan: 08/10/2020-patient receiving Percocets for pain management. - Time Anticipated Discharge Disposition: Home, Self Care Anticipated Discharge Timeframe: within 72 hours
--- NOTE | 2020-08-10 12:54 | RADIOLOGY REPORT (SQ) ---
EXAM DESCRIPTION: CHEST 2 VIEWS IMAGES COMPLETED DATE/TIME: 08/10/2020 12:30 pm REASON FOR STUDY: shortness of breath COMPARISON: AP view of the chest from 08/04/2020. EXAM PARAMETERS: NUMBER OF VIEWS: Two views. TECHNIQUE: PA and lateral views of the chest were obtained. RADIATION DOSE: NA LIMITATIONS: None. FINDINGS: LUNGS AND PLEURA: Asymmetric bilateral perihilar opacities (right greater than left). The costophrenic sulci are blunted. There is no pneumothorax. MEDIASTINUM AND HILAR STRUCTURES: No mediastinal or hilar contour abnormality. HEART AND VASCULAR STRUCTURES: The cardiac silhouette and pulmonary vasculature are within normal hinson its. BONES: No acute findings. HARDWARE: None in the chest. OTHER: No other finding. IMPRESSION: Asymmetric bilateral perihilar opacities associated with small pleural effusions. Diffe rential considerations include multifocal pneumonia and asymmetric pulmonary edema. TECHNICAL DOCUMENTATION: JOB ID: [id number] 2010 [employer]- All Rights Reserved Reading location - IP/workstation name: [email or web address]
[2020-08-10] MEDS: OXYCODONE HCL IR 5 MG TABLET PO PRN ×2 (13:21→22:22)
[2020-08-10] MEDS: OXYCODONE-ACETAMINOPHEN 5-325 MG TABLET PO PRN ×2 (13:22→22:15)
[2020-08-10] MEDS: ALPRAZOLAM 0.5 MG TABLET PO PRN (13:23)
[2020-08-10] MEDS: DOCUSATE SODIUM 100 MG CAPSULE PO SCH (17:47)
[2020-08-11] MEDS: PANTOPRAZOLE SODIUM 40 MG TABLET.DR PO SCH ×2 (05:21→16:57)
[2020-08-11] MEDS: OXYCODONE-ACETAMINOPHEN 5-325 MG TABLET PO PRN ×3 (05:23→18:05)
[2020-08-11] MEDS: OXYCODONE HCL IR 5 MG TABLET PO PRN ×3 (05:24→18:04)
[2020-08-11] MEDS: ALPRAZOLAM 0.5 MG TABLET PO PRN ×3 (05:30→18:02)
[2020-08-11 06:27] LABS: HEMATOCRIT 24.3 % (37.9-51.0); HEMOGLOBIN 8.1 g/dL (13.5-17.0); MEAN CORPUSCULAR HEMOGLOBIN 30.4 pg (27.0-33.4); MEAN CORPUSCULAR HGB CONC 33.4 g/dL (32.0-36.0); MEAN CORPUSCULAR VOLUME 91 fl (80-97); PLATELET COUNT 602 10^3/uL (150-450); RED BLOOD COUNT 2.67 10^6/uL (4.35-5.55); RED CELL DISTRIBUTION WIDTH 14.3 % (11.5-14.0); WHITE BLOOD COUNT 18.6 10^3/uL (4.0-10.5)
[2020-08-11 06:51] LABS: ALBUMIN 2.5 g/dL (3.5-5.0); ALKALINE PHOSPHATASE 159 U/L (38-126); ANION GAP 6 (5-19); ASPARTATE AMINO TRANSFERASE 19 U/L (17-59); BILIRUBIN,DIRECT 0.3 mg/dL (0.0-0.4); BILIRUBIN,TOTAL 0.6 mg/dL (0.2-1.3); BLOOD UREA NITROGEN 23 mg/dL (7-20); CALCIUM 8.4 mg/dL (8.4-10.2); CARBON DIOXIDE 30 mmol/L (22-30); CHLORIDE 103 mmol/L (98-107); GLUCOSE 153 mg/dL (75-110); POTASSIUM 4.5 mmol/L (3.6-5.0); TOTAL PROTEIN 5.3 g/dL (6.3-8.2)
[2020-08-11 06:52] LABS: ABSOLUTE LYMPHOCYTES# (MANUAL) 0.6 10^3/uL (0.5-4.7); ABSOLUTE MONOCYTES # (MANUAL) 0.7 10^3/uL (0.1-1.4); BASOPHILS % (MANUAL) 0 % (0-2); EOSINOPHILS % (MANUAL) 0 % (0-6); LYMPHOCYTES % (MANUAL) 3 % (13-45); MONOCYTES % (MANUAL) 4 % (3-13); SEGMENTED NEUTROPHILS % (MAN) 93 % (42-78); TOTAL CELLS COUNTED 100
[2020-08-11 06:53] LABS: ANISOCYTOSIS SLIGHT
[2020-08-11 06:54] LABS: PLATELET COMMENT INCREASED
[2020-08-11] MEDS ORDERED: FUROSEMIDE 40 MG TABLET PO SCH (10:00)
--- NOTE | 2020-08-11 10:04 | PDOC PROGRESS REPORT ---
Subjective Progress Note for:: 08/11/20 Subjective:: 55 year old male with history of bilateral lower extremity edema, nonspecific rash, recent history of bilateral DVTs on Lovenox discharged home yesterday and p.o. prednisone came back to the emergency with complaining of increasing swelling of the lower extremities including the genitalia. Denies any chest pains or palpitations. In the ER he also complaining of shortness of breath he was placed on oxygen supplementation. No other complaints. His hemoglobin is yesterday 8 point 2 repeat hemoglobin 9.1 patient does not want any blood transfusion at this time. agreed To stay in the hospital for further management and is a full code. 08/[id number]-old male admitted with bilateral lower leg edema, scrotal edema and acute on chronic anemia. BNP is more than 3400. Echocardiogram is requested. Started on Lasix 40 mg p.o. daily he lost 3 cages since yesterday. To start him on Lasix 40 mg IV every 6 hours and to check the daily weights and he may be able to go home tomorrow. Hemoglobin is 8.1 patient is reluctant to have a blood transfusion at this time. Reason For Visit: VASCULITIS Physical Exam Vital Signs: Temp Pulse Resp BP Pulse Ox 98.0 F 83 18 142/78 H 95 08/11/20 07:52 08/11/20 07:52 08/11/20 07:52 08/11/20 07:52 08/11/20 07:52 Intake & Output 08/10/20 08/11/20 08/12/20 06:59 06:59 06:59 Intake Total 470 Output Total 300 Balance 170 Weight 84.822 kg 81.8 kg General appearance: PRESENT: no acute distress, well-developed Head exam: PRESENT: atraumatic Eye exam: PRESENT: PERRLA Mouth exam: PRESENT: neck supple Teeth exam: PRESENT: poor dentation Neck exam: ABSENT: carotid bruit, JVD, lymphadenopathy, thyromegaly Respiratory exam: PRESENT: decreased breath sounds Cardiovascular exam: PRESENT: RRR. ABSENT: diastolic murmur, rubs, systolic murmur GI/Abdominal exam: PRESENT: normal bowel sounds, soft. ABSENT: distended, guarding, mass, organolmegaly, rebound, tenderness Rectal exam: PRESENT: deferred Extremities exam: PRESENT: full ROM. ABSENT: calf tenderness, clubbing, pedal edema Neurological exam: PRESENT: alert, awake, oriented to person, oriented to place, oriented to time, oriented to situation, CN II-XII grossly intact. ABSENT: motor sensory deficit Psychiatric exam: PRESENT: appropriate affect, normal mood. ABSENT: homicidal ideation, suicidal ideation Results Laboratory Results: 08/11/20 06:03 08/11/20 06:03 08/10/20 08/10/20 08/11/20 06:00 06:00 06:03 WBC 18.3 H 18.6 H RBC 2.91 L 2.67 L Hgb 9.1 L 8.1 L Hct 26.7 L 24.3 L MCV 92 91 MCH 31.2 30.4 MCHC 34.0 33.4 RDW 14.2 H 14.3 H Plt Count 696 H 602 H Seg Neutrophils % Not Reportable Sodium Potassium Chloride Carbon Dioxide Anion Gap BUN Creatinine Est GFR ( Amer) Glucose Calcium Magnesium Total Bilirubin AST Alkaline Phosphatase Total Protein Albumin TSH Blood Type B POSITIVE Antibody Screen NEGATIVE 08/11/20 08/11/20 06:03 06:03 WBC RBC Hgb Hct MCV MCH MCHC RDW Plt Count Seg Neutrophils % Sodium 138.8 Potassium 4.5 Chloride 103 Carbon Dioxide 30 Anion Gap 6 BUN 23 H Creatinine 0.72 Est GFR ( Amer) > 60 Glucose 153 H Calcium 8.4 Magnesium 2.2 Total Bilirubin 0.6 AST 19 Alkaline Phosphatase 159 H Total Protein 5.3 L Albumin 2.5 L TSH 1.43 Blood Type Antibody Screen 08/11/20 06:03 NT-Pro-B Natriuret Pep 3380 H Impressions: Chest X-Ray 08/10/20 00:00 IMPRESSION: Asymmetric bilateral perihilar opacities associated with small pleural effusions. Differential considerations include multifocal pneumonia and asymmetric pulmonary edema. Assessment and Plan - Diagnosis (1) Leucocytosis Qualifiers: Is this a current diagnosis for this admission?: Yes Plan: 08/10/2020-WBC count is 18,300 patient is on prednisone 60 mg p.o. twice a day. To closely monitor the labs on regular basis and plan to gradually taper off prednisone at this time. 08/11/2020-WBC count is 18,600. May be secondary to steroid therapy. Plan is to cut on p.o. prednisone from 60 mg twice a day to 40 mg twice a day. Plan is to check the daily labs on regular basis. (2) Vasculitis Is this a current diagnosis for this admission?: Yes Plan: 08/10/2020-patient is getting prednisone 60 mg p.o. twice daily for vasculitis. Tawny boyd tried to get him an appointment with Dr. Freeman as an outpatient. In the meantime we will continue p.o. prednisone and gradually taper off the medication. Hepatitis profile came back negative. C-ANCA p-ANCA done negative. C3 is elevated to 215. CH 50 is more than 60. Complement C4 within normal limits. 08/11/2020-patient need to see Dr. Freeman as an outpatient for rheumatology work- up. (3) Proteinuria Qualifiers: Proteinuria type: unspecified Qualified Code(s): R80.9 - Proteinuria, unspecified Is this a current diagnosis for this admission?: No Plan: UPEP is done came back within normal limits. 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 Plan is to continue the present management at this time. 08/11/2020-patient has bilateral DVT presently on treatment dose of Lovenox. Patient may need to go home on Eliquis 5 mg p.o. twice daily from tomorrow. (5) Anemia Qualifiers: Anemia type: unspecified type Qualified Code(s): D64.9 - Anemia, u nspecified Is this a current diagnosis for this admission?: No Plan: 08/10/2020-patient has history of anemia of chronic disease. Latest hemoglobin is 9.1. Patient does not want any blood transfusions at this time. 08/11/2020-hemoglobin is 8.1 patient is reluctant to have a blood transfusion. Plan is to continue Eliquis at this time. Patient is asymptomatic. (6) Edema Qualifiers: Edema type: generalized Qualified Code(s): R60.1 - Generalized edema Is this a current diagnosis for this admission?: Yes Plan: 08/10/2020-patient has a 2+ pedal edema. Not on IV fluids. Receiving Lasix 40 mg p.o. daily. Check daily weights. Input output chart is requested. 08/11/2020-admission weight is 84.8 cages improved to 81.8 the last 3 EKGs. Plan is to give Lasix 40 mg IV twice a day and to check the weights on daily basis. (7) Leg pain, bilateral Is this a current diagnosis for this admission?: Yes Plan: 08/10/2020-patient receiving Percocets for pain management. - Time Anticipated Discharge Disposition: Home, Self Care Anticipated Discharge Timeframe: within 48 hours
[2020-08-11] MEDS: PREDNISONE 20 MG TABLET PO SCH ×2 (10:56→21:21)
[2020-08-11] MEDS: DOCUSATE SODIUM 100 MG CAPSULE PO SCH ×2 (10:56→18:06)
[2020-08-11] MEDS: ENOXAPARIN SODIUM INJ 80 MG/0.8 ML DISP.SYRIN SUBCUT SCH ×2 (10:59→21:21)
[2020-08-11] MEDS: FUROSEMIDE INJ/PF 40 MG/4 ML SDV IV SCH ×2 (12:11→18:06)
[2020-08-12] MEDS: FUROSEMIDE INJ/PF 40 MG/4 ML SDV IV SCH ×4 (00:22→22:19)
[2020-08-12] MEDS: OXYCODONE HCL IR 5 MG TABLET PO PRN ×4 (00:22→19:58)
[2020-08-12] MEDS: ALPRAZOLAM 0.5 MG TABLET PO PRN ×4 (00:22→19:58)
[2020-08-12] MEDS: OXYCODONE-ACETAMINOPHEN 5-325 MG TABLET PO PRN ×4 (00:25→19:57)
[2020-08-12] MEDS: PANTOPRAZOLE SODIUM 40 MG TABLET.DR PO SCH ×2 (06:35→17:57)
[2020-08-12 07:06] LABS: HEMATOCRIT 26.1 % (37.9-51.0); HEMOGLOBIN 8.9 g/dL (13.5-17.0); MEAN CORPUSCULAR HEMOGLOBIN 31.1 pg (27.0-33.4); MEAN CORPUSCULAR HGB CONC 34.2 g/dL (32.0-36.0); MEAN CORPUSCULAR VOLUME 91 fl (80-97); PLATELET COUNT 637 10^3/uL (150-450); RED BLOOD COUNT 2.86 10^6/uL (4.35-5.55); RED CELL DISTRIBUTION WIDTH 14.7 % (11.5-14.0); WHITE BLOOD COUNT 22.7 10^3/uL (4.0-10.5)
[2020-08-12 07:17] LABS: ALBUMIN 2.9 g/dL (3.5-5.0); ALKALINE PHOSPHATASE 172 U/L (38-126); ANION GAP 6 (5-19); ASPARTATE AMINO TRANSFERASE 20 U/L (17-59); BILIRUBIN,DIRECT 0.3 mg/dL (0.0-0.4); BILIRUBIN,TOTAL 0.6 mg/dL (0.2-1.3); BLOOD UREA NITROGEN 20 mg/dL (7-20); CALCIUM 8.6 mg/dL (8.4-10.2); CARBON DIOXIDE 34 mmol/L (22-30); CHLORIDE 99 mmol/L (98-107); GLUCOSE 146 mg/dL (75-110); POTASSIUM 3.7 mmol/L (3.6-5.0); TOTAL PROTEIN 5.9 g/dL (6.3-8.2)
[2020-08-12 07:28] LABS: APPEARANCE,URINE CLEAR; BILIRUBIN,URINE NEGATIVE (NEGATIVE); COLOR,URINE STRAW; GLUCOSE, URINE NEGATIVE (NEGATIVE); KETONES,URINE NEGATIVE (NEGATIVE); LEUKOCYTE ESTERASE,URINE TRACE (NEGATIVE); NITRITE,URINE NEGATIVE (NEGATIVE); PROTEIN,URINE 100 mg/dL (NEGATIVE); URINE SPECIFIC GRAVITY 1.008; UROBILINOGEN,URINE NEGATIVE mg/dL (<2.0)
[2020-08-12] MEDS: PREDNISONE 20 MG TABLET PO SCH ×2 (10:04→22:16)
[2020-08-12] MEDS: DOCUSATE SODIUM 100 MG CAPSULE PO SCH ×2 (10:05→17:59)
[2020-08-12] MEDS: ENOXAPARIN SODIUM INJ 80 MG/0.8 ML DISP.SYRIN SUBCUT SCH ×2 (10:05→22:19)
--- NOTE | 2020-08-12 10:47 | PDOC PROGRESS REPORT ---
Subjective Progress Note for:: 08/12/20 Subjective:: 55 year old male with history of bilateral lower extremity edema, nonspecific rash, recent history of bilateral DVTs on Lovenox discharged home yesterday and p.o. prednisone came back to the emergency with complaining of increasing swelling of the lower extremities including the genitalia. Denies any chest pains or palpitations. In the ER he also complaining of shortness of breath he was placed on oxygen supplementation. No other complaints. His hemoglobin is yesterday 8 point 2 repeat hemoglobin 9.1 patient does not want any blood transfusion at this time. agreed To stay in the hospital for further management and is a full code. 08/11/[id number]-ijac-old male admitted with bilateral lower leg edema, scrotal edema and acute on chronic anemia. BNP is more than 3400. Echocardiogram is requested. Started on Lasix 40 mg p.o. daily he lost 3 cages since yesterday. To start him on Lasix 40 mg IV every 6 hours and to check the daily weights and he may be able to go home tomorrow. Hemoglobin is 8.1 patient is reluctant to have a blood transfusion at this time. 08/12/2020-no acute events in the last 24 hours. Today's weight is 79 cases. Hemoglobin came up to 8.9. BNP is 2100 improved from 3400 yesterday. Negative fluid balance of 5.2 L. Patient is expressing desire to go home but I requested him to stay another day. Plan is to gradually taper off prednisone. IV Lasix is switched from every 6 hours to every 12 hours[address] Fluid restriction in place. Reason For Visit: VASCULITIS Physical Exam Vital Signs: Temp Pulse Resp BP Pulse Ox 97.5 F 71 16 128/64 H 98 08/12/20 08:47 08/12/20 08:47 08/12/20 08:47 08/12/20 08:47 08/12/20 08:47 Intake & Output 08/11/20 08/12/20 08/13/20 06:59 06:59 06:59 Intake Total 470 1461 Output Total 300 6700 Balance 170 -5245 Weight 81.8 kg 80.2 kg General appearance: PRESENT: no acute distress, well-developed Head exam: PRESENT: atraumatic Eye exam: PRESENT: PERRLA Ear exam: PRESENT: normal external ear exam Mouth exam: PRESENT: neck supple Neck exam: ABSENT: carotid bruit, JVD, lymphadenopathy, thyromegaly Respiratory exam: PRESENT: clear to auscultation josh. ABSENT: rales, rhonchi, wheezes Cardiovascular exam: PRESENT: RRR. ABSENT: diastolic murmur, rubs, systolic murmur GI/Abdominal exam: PRESENT: normal bowel sounds, soft. ABSENT: distended, guarding, mass, organolmegaly, rebound, tenderness Rectal exam: PRESENT: deferred Extremities exam: PRESENT: +2 edema Neurological exam: PRESENT: alert, awake, oriented to person, oriented to place, oriented to time, oriented to situation, CN II-XII grossly intact. ABSENT: motor sensory deficit Psychiatric exam: PRESENT: appropriate affect, normal mood. ABSENT: homicidal ideation, suicidal ideation Results Laboratory Results: 08/12/20 06:24 08/12/20 06:24 08/12/20 08/12/20 08/12/20 06:24 06:24 06:50 WBC 22.7 H RBC 2.86 L Hgb 8.9 L Hct 26.1 L MCV 91 MCH 31.1 MCHC 34.2 RDW 14.7 H Plt Count 637 H Sodium 138.6 Potassium 3.7 Chloride 99 Carbon Dioxide 34 H Anion Gap 6 BUN 20 Creatinine 0.78 Est GFR ( Amer) > 60 Glucose 146 H Calcium 8.6 Magnesium 1.9 Total Bilirubin 0.6 AST 20 Alkaline Phosphatase 172 H Total Protein 5.9 L Albumin 2.9 L Urine Color STRAW Urine Appearance CLEAR Urine pH 7.0 Ur Specific [place] 1.008 Urine Protein 100 H Urine Glucose (UA) NEGATIVE Urine Ketones NEGATIVE Urine Blood MODERATE H Urine Nitrite NEGATIVE Ur Leukocyte Esterase TRACE H Urine WBC (Auto) 11 Urine RBC (Auto) 14 08/11/20 08/12/20 06:03 06:24 NT-Pro-B Natriuret Pep 3380 H 2110 H Impressions: Chest X-Ray 08/10/20 00:00 IMPRESSION: Asymmetric bilateral perihilar opacities associated with small pleural effusions. Differential considerations include multifocal pneumonia and asymmetric pulmonary edema. Assessment and Plan - Diagnosis (1) Leucocytosis Qualifiers: Is this a current diagnosis for this admission?: Yes Plan: 08/10/2020-WBC count is 18,300 patient is on prednisone 60 mg p.o. twice a day. To closely monitor the labs on regular basis and plan to gradually taper off prednisone at this time. 08/11/2020-WBC count is 18,600. May be secondary to steroid therapy. Plan is to cut on p.o. prednisone from 60 mg twice a day to 40 mg twice a day. Plan is to check the daily labs on regular basis. 08/12/2020-WBC count is 22,700. It may be secondary to steroid therapy. Afebrile. Presently on prednisone 30 mg p.o. twice a day. (2) Vasculitis Is this a current diagnosis for this admission?: Yes Plan: 08/10/2020-patient is getting prednisone 60 mg p.o. twice daily for vasculitis. We tried to get him an appointment with Dr. Freeman as an outpatient. In the meantime we will continue p.o. prednisone and gradually taper off the medication. Hepatitis profile came back negative. C-ANCA p-ANCA done negative. C3 is elevated to 215. CH 50 is more than 60. Complement C4 within normal limits. 08/11/2020-patient need to see Dr. Freeman as an outpatient for rheumatology work- up. (3) Proteinuria Qualifiers: Proteinuria type: unspecified Qualified Code(s): R80.9 - Proteinuria, unspecified Is this a current diagnosis for this admission?: No Plan: UPEP is done came back within normal limits. 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 Plan is to continue the present management at this time. 08/11/2020-patient has bilateral DVT presently on treatment dose of Lovenox. Patient may need to go home on Eliquis 5 mg p.o. twice daily from tomorrow. 08/12/2020-patient has history of bilateral DVTs on Lovenox treatment dose. As per the family he is on Eliquis before and diet was discontinued because of the side effects. (5) Anemia Qualifiers: Anemia type: unspecified type Qualified Code(s): D64.9 - Anemia, unspecified Is this a current diagnosis for this admission?: No Plan: 08/10/2020-patient has history of anemia of chronic disease. Latest hemoglobin is 9.1. Patient does not want any blood transfusions at this time. 08/11/2020-hemoglobin is 8.1 patient is reluctant to have a blood transfusion. Plan is to continue Eliquis at this time. Patient is asymptomatic. 08/12/2020-hemoglobin today is 8.9. Improved. To recheck the labs tomorrow. (6) Edema Qualifiers: Edema type: generalized Qualified Code(s): R60.1 - Generalized edema Is this a current diagnosis for this admission?: Yes Plan: 08/10/2020-patient has a 2+ pedal edema. Not on IV fluids. Receiving Lasix 40 mg p.o. daily. Check daily weights. Input output chart is requested. 08/11/2020-admission weight is 84.8 cages improved to 81.8 the last 3 KGs. Plan is to give Lasix 40 mg IV twice a day and to check the weights on daily basis. 08/12/2020-weight today 79 kg. To continue IV Lasix 40 mg twice a day. Echocardiogram done 2 weeks ago which is within normal limits. (7) Leg pain, bilateral Is this a current diagnosis for this admission?: Yes Plan: 08/10/2020-patient receiving Percocets for pain management. - Time Anticipated Discharge Disposition: Home, Self Care Anticipated Discharge Timeframe: within 48 hours
[2020-08-13] MEDS: OXYCODONE-ACETAMINOPHEN 5-325 MG TABLET PO PRN ×2 (03:16→09:13)
[2020-08-13] MEDS: ALPRAZOLAM 0.5 MG TABLET PO PRN ×2 (03:17→09:13)
[2020-08-13] MEDS: OXYCODONE HCL IR 5 MG TABLET PO PRN ×2 (03:17→09:20)
[2020-08-13] MEDS: PANTOPRAZOLE SODIUM 40 MG TABLET.DR PO SCH (05:33)
[2020-08-13 06:50] LABS: HEMATOCRIT 24.8 % (37.9-51.0); HEMOGLOBIN 8.4 g/dL (13.5-17.0); MEAN CORPUSCULAR HGB CONC 34.1 g/dL (32.0-36.0); MEAN CORPUSCULAR VOLUME 91 fl (80-97); PLATELET COUNT 619 10^3/uL (150-450); RED BLOOD COUNT 2.72 10^6/uL (4.35-5.55); RED CELL DISTRIBUTION WIDTH 14.7 % (11.5-14.0); WHITE BLOOD COUNT 22.4 10^3/uL (4.0-10.5)
[2020-08-13 07:09] LABS: ALBUMIN 2.7 g/dL (3.5-5.0); ALKALINE PHOSPHATASE 153 U/L (38-126); ANION GAP 5 (5-19); ASPARTATE AMINO TRANSFERASE 19 U/L (17-59); BILIRUBIN,DIRECT 0.4 mg/dL (0.0-0.4); BILIRUBIN,TOTAL 0.6 mg/dL (0.2-1.3); BLOOD UREA NITROGEN 20 mg/dL (7-20); CALCIUM 8.1 mg/dL (8.4-10.2); CARBON DIOXIDE 38 mmol/L (22-30); CHLORIDE 95 mmol/L (98-107); GLUCOSE 134 mg/dL (75-110); POTASSIUM 3.9 mmol/L (3.6-5.0); TOTAL PROTEIN 5.6 g/dL (6.3-8.2)
[2020-08-13 07:33] LABS: ABSOLUTE LYMPHOCYTES# (MANUAL) 0.4 10^3/uL (0.5-4.7); ABSOLUTE MONOCYTES # (MANUAL) 0.7 10^3/uL (0.1-1.4); BASOPHILS % (MANUAL) 0 % (0-2); EOSINOPHILS % (MANUAL) 0 % (0-6); LYMPHOCYTES % (MANUAL) 2 % (13-45); MONOCYTES % (MANUAL) 3 % (3-13); SEGMENTED NEUTROPHILS % (MAN) 95 % (42-78); TOTAL CELLS COUNTED 100
[2020-08-13 07:35] LABS: ANISOCYTOSIS SLIGHT; PLATELET CLUMPS PRESENT; PLATELET LARGE PRESENT; POLYCHROMASIA SLIGHT; TOXIC GRANULATION SLIGHT; TOXIC VACUOLATION PRESENT
[2020-08-13 07:36] LABS: PLATELET COMMENT INCREASED
[2020-08-13] MEDS: DOCUSATE SODIUM 100 MG CAPSULE PO SCH (09:13)
[2020-08-13] MEDS: PREDNISONE 20 MG TABLET PO SCH (09:19)
[2020-08-13] MEDS: ENOXAPARIN SODIUM INJ 80 MG/0.8 ML DISP.SYRIN SUBCUT SCH (09:20)
[2020-08-13] MEDS: FUROSEMIDE INJ/PF 40 MG/4 ML SDV IV SCH (09:20)
[2020-08-13 11:43] VITALS: BP 146/85
--- NOTE | 2020-08-16 09:33 | PDOC DISCHARGE SUMMARY ---
Impression - Admit/DC Date/PCP Admission Date/Primary Care Provider: 08/10/20 04:56 WANG BARROSO MD Discharge Date: 08/13/20 - Additional Information Resuscitation Status: Full Code Discharge Diet: Cardiac Discharge Activity: Activity As Tolerated, Balance Activity w/Rest, Keep Legs Elevated, Other Referrals: WANG BARROSO MD [Primary Care Provider] - 08/18/20 2:45 pm () Prescriptions: Prednisone [Deltasone 20 mg Tablet] 20 mg PO TID #90 tablet Furosemide [Lasix] 80 mg PO BID #14 tablet Enoxaparin Sodium [Lovenox Inj 80 mg/0.8 ml Disp.syrin] 80 mg SUBCUT Q12 #60 disp.syrin Alprazolam [Xanax 0.5 mg Tablet] 1 mg PO Q6HP PRN #20 tablet PRN Reason: Home Medications: Oxycodone HCl/Acetaminophen [Percocet 5-325 mg Tablet] 2 tab PO Q6HP PRN 08/04/20 Alprazolam [Xanax] 0.5 mg PO Q6HP PRN 08/10/20 Diazepam [Valium 5 mg Tablet] 5 mg PO TIDP PRN 08/10/20 Acetaminophen [Tylenol 325 mg Tablet] 650 mg PO Q4HP PRN tablet 08/13/20 Alprazolam [Xanax 0.5 mg Tablet] 1 mg PO Q6HP PRN #20 tablet 08/13/20 Enoxaparin Sodium [Lovenox Inj 80 mg/0.8 ml Disp.syrin] 80 mg SUBCUT Q12 #60 disp.syrin 08/13/20 Furosemide [Lasix] 80 mg PO BID #14 tablet 08/13/20 Prednisone [Deltasone 20 mg Tablet] 20 mg PO TID #90 tablet 08/13/20 History of Present Illiness History of Present Illness: Per H&P by Dr. Hamm: TRINITY MARION JR is a 55 year old male with history of bilateral lower extremity edema, nonspecific rash, recent history of bilateral DVTs on Lovenox discharged home yesterday and p.o. prednisone came back to the emergency with complaining of increasing swelling of the lower extremities including the genitalia. Denies any chest pains or palpitations. In the ER he also complaining of shortness of breath he was placed on oxygen supplementation. No other complaints. His hemoglobin is yesterday 8 point 2 repeat hemoglobin 9.1 patient does not want any blood transfusion at this time. agreed To stay in the hospital for further management and is a full code. Hospital Course Hospital Course: (1) Leucocytosis Persistent and stable at 22.4 on day of discharge. Patient is afebrile with negative cultures and no evidence of infectious process at this time. Likely secondary to a combination of vasculitis and steroid therapy. Outpatient PCP, hematology, and rheumatology follow-up. (2) Vasculitis Hepatitis profile came back negative. C-ANCA p-ANCA negative. C3 is elevated to 215. CH 50 is more than 60. Complement C4 within normal limits. Patient need to see Dr. Freeman as an outpatient for rheumatology work-up; recommend the earliest available appointment. Patient is discharged on a 30-day prescription of prednisone 60 mg daily. Will defer tapering to PCP and/or Dr. Freeman based upon patient's symptomology. (3) Proteinuria UPEP is done came back within normal limits. (4) DVT (deep venous thrombosis) Continue Lovenox treatments. (5) Anemia Stable; no indications of active bleeding at this time. Currently on full dose Lovenox for treatment of DVT. Outpatient follow-up with hematology has already been arranged. (6) Edema Significantly improved. Patient received IV furosemide for diuresis with approximate 4 kg weight loss. Patient's IV furosemide dosing was decreased yesterday. He is now on 40 mg twice daily and requesting to discharge home with prescription for furosemide to continue diuresis. We discussed, at length, my recommendation to continue weaning furosemide here to ensure adequate diuresis without MICHELLE. Patient was very insistent upon going home. Both he and his are of above average intelligence and have acceptable medical literacy; therefore, he was provided explicit instructions on how to titrate his p.o. furosemide dosing based upon daily weights. We discussed signs and symptoms of dehydration/MICHELLE. He was instructed to follow-up with his primary care provider within 1 week and to return to the emergency department for any concerning symptoms. (7) Leg pain, bilateral Secondary to vasculitis and resultant edema. Provided Rx for Percocet. Physical Exam Vital Signs: Temp Pulse Resp BP Pulse Ox 98.5 F 90 18 146/85 H 96 08/13/20 11:41 08/13/20 11:41 08/13/20 11:41 08/13/20 11:41 08/13/20 11:41 General appearance: PRESENT: no acute distress, well-developed, well-nourished Head exam: PRESENT: atraumatic, normocephalic Eye exam: PRESENT: conjunctiva pink, EOMI, PERRLA. ABSENT: scleral icterus Mouth exam: PRESENT: moist, tongue midline Respiratory exam: PRESENT: clear to auscultation josh, symmetrical, unlabored, other - Room air. ABSENT: rales, rhonchi, wheezes Cardiovascular exam: PRESENT: RRR, +S1, +S2. ABSENT: diastolic murmur, rubs, systolic murmur Pulses: PRESENT: normal dorsalis pedis pul Vascular exam: PRESENT: normal capillary refill Extremities exam: PRESENT: full ROM, +1 edema - BLE, soft, pitting edema. ABSENT: calf tenderness, clubbing, pedal edema Musculoskeletal exam: PRESENT: ambulatory Neurological exam: PRESENT: alert, awake, oriented to person, oriented to place, oriented to time, oriented to situation, CN II-XII grossly intact. ABSENT: motor sensory deficit Psychiatric exam: PRESENT: appropriate affect, normal mood. ABSENT: homicidal ideation, suicidal ideation Skin exam: PRESENT: dry, intact, warm. ABSENT: cyanosis, rash Results Laboratory Results: WBC 22.4 10^3/uL (4.0-10.5) H 08/13/20 05:46 RBC 2.72 10^6/uL (4.35-5.55) L 08/13/20 05:46 Hgb 8.4 g/dL (13.5-17.0) L 08/13/20 05:46 Hct 24.8 % (37.9-51.0) L 08/13/20 05:46 MCV 91 fl (80-97) 08/13/20 05:46 MCH 31.0 pg (27.0-33.4) 08/13/20 05:46 MCHC 34.1 g/dL (32.0-36.0) 08/13/20 05:46 RDW 14.7 % (11.5-14.0) H 08/13/20 05:46 Plt Count 619 10^3/uL (150-450) H 08/13/20 05:46 Lymph % (Auto) Not Reportable 08/13/20 05:46 [place] % (Auto) Not Reportable 08/13/20 05:46 Eos % (Auto) Not Reportable 08/13/20 05:46 Baso % (Auto) Not Reportable 08/13/20 05:46 Absolute Neuts (auto) Not Reportable 08/13/20 05:46 Absolute Lymphs (auto) Not Reportable 08/13/20 05:46 Absolute Monos (auto) Not Reportable 08/13/20 05:46 Absolute Eos (auto) Not Reportable 08/13/20 05:46 Absolute Basos (auto) Not Reportable 08/13/20 05:46 Total Counted 100 08/13/20 05:46 Seg Neutrophils % Not Reportable 08/13/20 05:46 Seg Neuts % (Manual) 95 % (42-78) H 08/13/20 05:46 Lymphocytes % (Manual) 2 % (13-45) L 08/13/20 05:46 Monocytes % (Manual) 3 % (3-13) 08/13/20 05:46 Eosinophils % (Manual) 0 % (0-6) 08/13/20 05:46 Basophils % (Manual) 0 % (0-2) 08/13/20 05:46 Abs Neuts (Manual) 21.3 10^3/uL (1.7-8.2) H 08/13/20 05:46 Abs Lymphs (Manual) 0.4 10^3/uL (0.5-4.7) L 08/13/20 05:46 Abs Monocytes (Manual) 0.7 10^3/uL (0.1-1.4) 08/13/20 05:46 Absolute Eos (Manual) 0.0 10^3/uL (0.0-0.6) 08/13/20 05:46 Abs Basophils (Manual) 0.0 10^3/uL (0.0-0.2) 08/13/20 05:46 Toxic Granulation SLIGHT 08/13/20 05:46 Toxic Vacuolation PRESENT 08/13/20 05:46 Clumped Platelets PRESENT 08/13/20 05:46 Large Platelets PRESENT 08/13/20 05:46 Platelet Comment INCREASED 08/13/20 05:46 Polychromasia SLIGHT 08/13/20 05:46 Anisocytosis SLIGHT 08/13/20 05:46 Sodium 137.6 mmol/L (137-145) 08/13/20 05:46 Potassium 3.9 mmol/L (3.6-5.0) 08/13/20 05:46 Chloride 95 mmol/L (98-107) L 08/13/20 05:46 Carbon Dioxide 38 mmol/L (22-30) H 08/13/20 05:46 Anion Gap 5 (5-19) 08/13/20 05:46 BUN 20 mg/dL (7-20) 08/13/20 05:46 Creatinine 0.81 mg/dL (0.52-1.25) 08/13/20 05:46 Est GFR ( Amer) > 60 (>60) 08/13/20 05:46 Est GFR (MDRD) Non-Af > 60 (>60) 08/13/20 05:46 Glucose 134 mg/dL (75-110) H 08/13/20 05:46 Calcium 8.1 mg/dL (8.4-10.2) L 08/13/20 05:46 Magnesium 1.8 mg/dL (1.6-2.3) 08/13/20 05:46 Total Bilirubin 0.6 mg/dL (0.2-1.3) 08/13/20 05:46 Direct Bilirubin 0.4 mg/dL (0.0-0.4) 08/13/20 05:46 Neonat Total Bilirubin Not Reportable 08/13/20 05:46 Neonat Direct Bilirubin Not Reportable 08/13/20 05:46 Neonat Indirect Bili Not Reportable 08/13/20 05:46 AST 19 U/L (17-59) 08/13/20 05:46 ALT 28 U/L (<50) 08/13/20 05:46 Alkaline Phosphatase 153 U/L (38-126) H 08/13/20 05:46 NT-Pro-B Natriuret Pep 1190 pg/mL (<125) H 08/13/20 05:46 Total Protein 5.6 g/dL (6.3-8.2) L 08/13/20 05:46 Albumin 2.7 g/dL (3.5-5.0) L 08/13/20 05:46 TSH 1.43 uIU/mL (0.47-4.68) 08/11/20 06:03 Urine Color STRAW 08/12/20 06:50 Urine Appearance CLEAR 08/12/20 06:50 Urine pH 7.0 (5.0-9.0) 08/12/20 06:50 Ur Specific [place] 1.008 08/12/20 06:50 Urine Protein 100 mg/dL (NEGATIVE) H 08/12/20 06:50 Urine Glucose (UA) NEGATIVE mg/dL (NEGATIVE) 08/12/20 06:50 Urine Ketones NEGATIVE mg/dL (NEGATIVE) 08/12/20 06:50 Urine Blood MODERATE (NEGATIVE) H 08/12/20 06:50 Urine Nitrite NEGATIVE (NEGATIVE) 08/12/20 06:50 Urine Bilirubin NEGATIVE (NEGATIVE) 08/12/20 06:50 Urine Urobilinogen NEGATIVE mg/dL (<2.0) 08/12/20 06:50 Ur Leukocyte Esterase TRACE (NEGATIVE) H 08/12/20 06:50 Urine WBC (Auto) 11 /HPF 08/12/20 06:50 Urine RBC (Auto) 14 /HPF 08/12/20 06:50 Squamous Epi Cells Auto <1 /HPF 08/12/20 06:50 Urine Mucus (Auto) RARE /LPF 08/12/20 06:50 Urine Ascorbic Acid NEGATIVE (NEGATIVE) 08/12/20 06:50 Blood Type B POSITIVE 08/10/20 06:00 Antibody Screen NEGATIVE 08/10/20 06:00 Crossmatch See Detail 08/10/20 06:00 08/11/20 08/12/20 08/13/20 06:03 06:24 05:46 NT-Pro-B Natriuret Pep 3380 H 2110 H 1190 H Impressions: Chest X-Ray 08/10/20 00:00 IMPRESSION: Asymmetric bilateral perihilar opacities associated with small pleural effusions. Differential considerations include multifocal pneumonia and asymmetric pulmonary edema. Plan Plan of Treatment: Patient is discharged home in stable condition. He is advised to follow up with primary care provider within 1 week. Recommend he be seen by a batch room technician at the earliest available appointment. Keep scheduled appointment with Dr. Regalado. Continue Lovenox injections twice daily. Continue daily steroid therapy. For Lasix/Furosemide: - Weigh daily. - If gained more than 2 lbs from the previous day; take both the morning and afternoon dose of your furosemide. - If have lost more than 2 lbs from the previous day; do not take any. Skip this day. - Otherwise; take only the morning dose. - The goal is for the remaining retained fluid/swelling to come off very, very gradually. - Avoid high sodium (salt) containing fluids and foods (gatoraide/poweraide, tomato juice, pork products, pre-packaged food, fast foods). Take other medications as prescribed. Return to the emergency department, as needed, for concerning symptoms. Time Spent: Greater than 30 Minutes Stroke Is this a Stroke Patient?: No Acute Heart Failure Is this a Heart Failure Patient?: No
== END 2020-08-13 12:18 | disposition home or self-care (01) ==
LOC: ER 23:47 → EH 08-10 04:56 → INTOOBSV 08-10 04:56 → 3S 08-10 08:28
PROVIDERS: ADMIT Internal Medicine; ATTEND Internal Medicine
DX: I77.6 Arteritis, unspecified (principal); I82.503 Chronic embolism and thrombosis of unspecified deep veins of lower extremity, bilateral; D72.829 Elevated white blood cell count, unspecified; R80.9 Proteinuria, unspecified; R60.1 Generalized edema; D64.9 Anemia, unspecified; M79.605 Pain in left leg; M79.604 Pain in right leg; D63.8 Anemia in other chronic diseases classified elsewhere; R06.02 Shortness of breath; N50.89 Other specified disorders of the male genital organs; M19.90 Unspecified osteoarthritis, unspecified site; Z82.49 Family history of ischemic heart disease and other diseases of the circulatory system
CPT/HCPCS: 99285; 96374; 96375; 86900; 86901; 36415 ×4; 86850; 83735 ×4; 84443; 85025 ×3; 85027; 80053 ×4; 81001; 86920; 83880 ×3; 71046; 93005; 93010; G0378 ×3; J3010; J1940 ×3; J7512 ×4; J2405; J1650 ×4; J3490 ×4